=== PATIENT | male | born 1960 | race Caucasian/White ===

== ENCOUNTER → 2016-05-18 | Outpatient (CLI) | payer OTHER ==
[2016-05-18 12:54] VITALS: BP 149/96; PULSE 80; RESP 16; TEMP 98.1
--- NOTE | 2016-05-18 13:16 | P.PN ---
Subjective This is follow-up visit for this patient with a history of severe and chronic neck pain and low back pain secondary to cervical degenerative disc disease, lumbar degenerative disc disease ,lumbar spondylosis with facet arthropathy, we have done interventional pain management injection, cervical epidural steroid injections, and he reported that helped his neck pain significantly, and the last injection done was more than a year ago, and also we did radiofrequency ablation of the medial branch lumbar area, and this helped his low back pain for more than 2 years, currently he started to complain of severe neck pain and low back pain, he denies any motor or sensory deficits he denies change in the bowel movement or urination, and he had no fever or night sweats, and is currently on pain medications 1- Percocet 10/325 every 6 hours 2- Flexeril 10 mg when necessary 3- Neurontin 800 mg 3 times a day Patient denies any side effects of the medication, denies excessive drowsiness or sleepiness, denies suicidal ideation, and reports that the current pain medication is NOT helping To control the pain and improve activity of daily living Physical Examinations : 1-Constitutiona : Cooperative , not in acute distress . 2-HEENT : nech ; supple , no Lymphadenopathy , no Thyromegaly , normal thyroid size . eyes : no ptosis , no icterus, no photophobia . ENT : normal of hearing , normal oropharynx , no Thrush . 3- Respiratory : Chest clear to auscultations Bilaterally , no wheezing , no Rhonchi . 4- Cardiovascular : regular rate and rhythem , S1 , S2 , no S3 , no S4. 5- Gastrointestinal : abdomen soft no tenderness , bowel sounds positive all four quadrents , no organomegally . 6- Genitourinary : Defferred . 7- neurologic : Cranial nerve II to XII intact , no focal neurological deffecit . 8-psychatric : alert , oriented X 3 , appropriate affect , intact judgment and insight . 9-Lymphatic : no Lymphadenopathy . 10- musculoskeltal : exams of the cervical spine = motor strength normal bilateral upper extremities Multiple trigger point identified in the cervical paravertebral muscles . And trigger point identified in the left side shoulder blade area exams of the Lumber spine = motor strength lower extremities ,thigh and legs .5/5 deep tendon reflexes : normal Knee Jerk , normal ankle Jerk . lumber facet Loading Test positive strait leg raising test positive at 30 degree , RT ,LT , Fabere test positive RT and positive LT . Range of motion: Range of motion in flexion of the lumbar spine 30 degrees Range of motion range of motion of extension of the lumbar spine 10 degrees Assessment and plan = Chronic neck pain secondary to cervical degenerative disc disease, and myofascial pain syndrome and cervical area, patient could benefit from Cervical epidural steroid injections, and trigger point injections - Chronic low back pain secondary to lumbar degenerative disc disease , lumbar spondylosis with facet arthropathy without myelopathy , Patient had radiofrequency ablation of the medial branch lumbar area done more than 2 years ago on the other with resultant, in the future we can Repeat the radiofrequency ablation of the medial branch lumbar area, after we finished the treatment of the nec -medication management = patient getting this prescription refill from his primary care Objective - Vital Signs Vital signs: Vital Signs Temp 98.1 F 05/18/16 12:40 Pulse 80 05/18/16 12:40 Resp 16 05/18/16 12:40 BP 149/96 05/18/16 12:40 Pulse Ox Intake & Output 05/17/16 05/18/16 05/18/16 18:59 06:59 18:59 Weight 107.955 kg
== END | disposition home or self-care (01) ==
LOC: PNWHC3 12:28
PROVIDERS: ATTEND Specialist
DX: M50.30 Other cervical disc degeneration, unspecified cervical region (principal); M79.1 Myalgia; M51.36 Other intervertebral disc degeneration, lumbar region; M47.816 Spondylosis without myelopathy or radiculopathy, lumbar region; M46.96 Unspecified inflammatory spondylopathy, lumbar region; Z79.899 Other long term (current) drug therapy
CPT/HCPCS: 99211

== ENCOUNTER 2016-06-23 06:24 | Day surgery (SDC) | payer OTHER ==
[2016-06-19 16:17] VITALS: BMI 33.5
[~2016-06-23 06:24] MED LIST: LACTATED RINGERS 1,000 ML IV SCH
[2016-06-23] MEDS ORDERED: LIDOCAINE 1% 20 ML VIAL (10MG/ML) FOR IV START INTRADERMA ONE (06:45)
[2016-06-23 06:55] VITALS: RESP 16; TEMP 97.4
[2016-06-23] MEDS ORDERED: MIDAZOLAM 2 MG/2 ML VIAL ONE (07:14)
[2016-06-23] MEDS ORDERED: fentaNYL (PF) 50 MCG/ML 2 ML AMP ONE (07:14)
[2016-06-23] MEDS ORDERED: IOHEXOL 180 MG/ML 1 ML ML ONE (07:14)
[2016-06-23] MEDS ORDERED: BUPIVACAINE (PF) 0.5% 30 ML VIAL ONE (07:14)
--- NOTE | 2016-06-23 07:37 | P.PCN ---
Date of Procedure: 06/23/16 Procedure(s) Performed: . PROCEDURE 1. Cervical epidural steroid injection under fluoroscopic guidance, C6-7 2. Cervical epidurogram. 3. Trigger point injections left-sided cervical paravertebral muscles ,total of 4 trigger points injected PREOPERATIVE DIAGNOSIS: 1- Cervical Degenerative Disc Diseases 2- myofascial pain syndrome cervical paravertebral area POSTOPERATIVE DIAGNOSIS: : Same as preoperative diagnosis. ANESTHESIA: Local anesthesia with 1% lidocaine and IV sedation with Versed 2 mg and Fentanyl 100 mcg. EBL 0 PROCEDURE INDICATION: The patient with neck pain , unresponsive to conservative treatment, and he consented for procedure. Exams showed patient had multiple trigger points in the left-sided cervical paravertebral muscles for this reason , we will do cervical epidural steroid injection and trigger point injections PROCEDURE DESCRIPTION / TECHNIQUE: The patient was seen and identified in the preoperative area. Risks, benefits, complications, including but not limited to infections ,bleeding , allergic reactions to the medications ,and not complete pain releife, and alternatives were discussed with the patient, the patient agreed to proceed with the procedure and signed the consent. Patient was taken to the OR and time out was completed. The patient was placed in the prone position on the procedure table. A pillow was placed under the patients chest to increase the cervical interlaminar space. The cervical area was prepped and draped in the usual sterile fashion. Vital signs were closely monitored during the procedure. Conscious sedation was used during the procedure to decrease patients anxiety. Using anterior-posterior fluoroscopy, the C7-T1 interlaminar space was identified and the skin over this site was marked and then infiltrated with 1% lidocaine subcutaneously. Subsequently, a 20-gauge 3-1/2-inch Tuohy epidural needle was inserted and advanced toward the epidural space by means of the `` hanging-drop technique and guided by AP and lateral fluoroscopy. The correct needle position in the epidural space was verified with the injection of 2 mL of the water soluble contrast dye Isovue-180 and observing an excellent epidurogram with the epidural spread of the dye, after negative aspiration for blood and CSF and in the absence of paresthesias. Again after negative aspiration, mixture containing 20 mg Dexamethasone and 2 ml of preservative- free normal saline injected and a washout of epidurogram was seen. Needle was withdrawn intact , Daisy trigger point injections normal sterile technique, each of the trigger point that is identified in the preop holding area, each one of them injected with Marcaine 0.5% 2 mL, injected at each trigger point using 25-gauge needle, injection after negative aspiration under was no paresthesia during the injection, patient tolerated procedure well without any complications. Complications= none. Disposition= patient was placed in supine position and transferred to the recovery room area in stable condition and there was no evidence of upper or lower extremity motor or sensory deficit after the procedure patient was discharged from recovery room after discharge criteria met and home discharge instructions was given by the staff and patient will follow with the pain clinic in 2-4 weeks
[2016-06-23] MEDS ORDERED: IV FLUID CONTINUATION 1,000 ML IV ONE ×2 (07:39)
--- NOTE | 2016-06-23 08:09 | FL ---
EXAMINATION TYPE: FL guided pain mgmt statistic DATE OF EXAM: 06/23/2016 7:35 AM FLUOROSCOPY Fluoroscopy time of 5 seconds was used during cervical epidural injection. 1 image/s document/s the procedure.
[2016-06-23 08:10] VITALS: BP 158/96; PULSE 71
== END 2016-06-23 08:13 | disposition home or self-care (01) ==
LOC: ORPAIN 06:24
PROVIDERS: ATTEND Specialist
DX: M50.30 Other cervical disc degeneration, unspecified cervical region (principal); M79.1 Myalgia
CPT/HCPCS: 20553; 62321; J2250; Q9965; J3010

== ENCOUNTER 2016-07-29 06:58 | Day surgery (SDC) | payer OTHER ==
[2016-07-27 16:16] VITALS: BMI 33.6
[2016-07-29 07:58] VITALS: RESP 18; TEMP 97.7
[2016-07-29] MEDS ORDERED: LACTATED RINGERS 1,000 ML IV SCH (08:00)
[2016-07-29] MEDS ORDERED: LIDOCAINE 1% 20 ML VIAL (10MG/ML) FOR IV START INTRADERMA ONE (08:04)
[2016-07-29] MEDS ORDERED: MIDAZOLAM 2 MG/2 ML VIAL ONE (08:23)
[2016-07-29] MEDS ORDERED: TRIAMCINOLONE ACETONIDE 40 MG/ML 1 ML VIAL ONE (08:23)
[2016-07-29] MEDS ORDERED: fentaNYL (PF) 50 MCG/ML 2 ML AMP ONE (08:23)
[2016-07-29] MEDS ORDERED: IOHEXOL 180 MG/ML 1 ML ML ONE (08:23)
[2016-07-29] MEDS ORDERED: BUPIVACAINE (PF) 0.25% 30 ML VIAL ONE (08:23)
--- NOTE | 2016-07-29 08:39 | P.PCN ---
Date of Procedure: 07/29/16 Preoperative Diagnosis: Cervical neuroforaminal stenosis Cervical disc degeneration Postoperative Diagnosis: Same as above Procedure(s) Performed: Cervical epidural steroid injection under fluoroscopic guidance Trigger point injection Anesthesia: other (Moderate sedation with Versed and fentanyl) Surgeon: Juan Conn Pathology: none sent Condition: stable Disposition: PACU Description of Procedure: The patient was seen in preop holding area consent was obtained then he was brought into the procedure was placed in prone position. Skin was prepped with Betadine 3 and draped in a sterile manner. Lidocaine 1% was used to numb the skin up at the target point that was at the C7-T1 level in the left paramedian approach. I used 20-gauge 3-1/2 inch Touhy epidural needle with loss-of- resistance to air. The needle tip contacted the T1 lamina then it walked off the bone and into the epidural space between C7 and T1. There was positive loss -of-resistance to air negative aspiration for any CSF or blood and negative paresthesia. Then 40 mg of kenalog +4 MLS of preservative free normal saline were injected in the epidural space.
[2016-07-29] MEDS ORDERED: IV FLUID CONTINUATION 500 ML IV ONE (09:00)
[2016-07-29 09:12] VITALS: BP 120/74; PULSE 74
--- NOTE | 2016-07-29 09:46 | FL ---
Fluoroscopy INDICATION: Pain FINDINGS: Fluoroscopy time: 2 seconds. Images obtained: 1. IMPRESSIONS: 1. Documentation of fluoroscopy.
== END 2016-07-29 09:25 | disposition home or self-care (01) ==
LOC: ORPAIN 06:58
PROVIDERS: ATTEND Anesthesiology
DX: M48.02 Spinal stenosis, cervical region (principal); M50.30 Other cervical disc degeneration, unspecified cervical region; Z79.899 Other long term (current) drug therapy
CPT/HCPCS: 20553; 62321; 99152; J2250; J3301; Q9965; J3010

== ENCOUNTER → 2016-09-07 | Outpatient (CLI) | payer OTHER ==
[2016-09-07 13:20] VITALS: BP 140/90; PULSE 83; RESP 16; TEMP 97.6
--- NOTE | 2016-09-07 13:30 | P.PN ---
Progress Note - Text Patient returns for followup for chronic neck and back pain with radiation to right arm and without radiation to legs. Patient recently underwent HUGO + TPI x 2, which provided some relief for 3-4 weeks' interval. Patient continues on Percocet/Neurontin medications for pain from PCP with good relief. Patient denies adverse drug effects from medications. Today, pt denies new-onset weakness, bowel/bladder incontinence, or any other signs or symptoms of cauda equina syndrome. There are no signs of acute intoxication, and no indications of medication diversion or overuse. In addition to above, 13-point review of systems is also negative for chest pain , shortness of breath, changes in vision, changes in hearing, new onset weakness , abdominal pain, diarrhea, extreme fatigue, malaise, fever, skin changes, homicidal or suicidal ideation, or bowel or bladder incontinence. Vital Signs: Reviewed in EMR Gen: WDWN, AAOx3, NAD HEENT: NCAT, EOMI, hearing grossly normal Pulm: resp unlabored Abd: soft, NT, ND Neck: supple, trachea midline ROM in flexion lumbar spine: reduced ROM in extension lumbar spine: reduced Lumbar paravertebral tenderness: + Facet loading: + bilateral, R > L SI joint tenderness: + R > L Miguelito's test: + bilateral Straight leg raise: neg Neuro: CN II-XII grossly intact, muscle strength lower extremities PRESERVED Imaging: Reviewed in EMR Assessment: 1. lumbar spondylosis without myelopathy 2. cervical radiculopathy 3. chronic pain syndrome Plan: 1. Explanation: Opioid and psychological risk scores were reviewed. Diagnoses , prognoses, and multiple treatment options including but not limited to physical therapy, interventional therapies, adjuvant medical therapies, narcotic medication therapies, and surgery were discussed with the patient and all questions were answered to the patient's satisfaction. 2. Opioid agreement: no opioids prescribed today 3. Counseling: The patient was counseled extensively on BODY MASS INDEX, EXERCISE. Specifically, the patient was instructed regarding the importance of obesity, and exercise in the context of both chronic pain and overall health. 4. Procedures: repeat right vs. lumbar RFA 5. Consultations: None 6. Investigations: None 7. Medications: none prescribed 8. Disposition: f/u for procedure as scheduled PQRS measures: 1-Patient's medications are documented in the chart. 2-Tobacco use is positive, counseling given 3-Patient has not had a pneumococcal vaccine. 4-Advanced care planning discussed, patient unable to give. 5-Opioid contract NOT signed with the patient. 6-Pain positive, follow-up visit or procedure scheduled 7-Patient's blood pressure measured and documented, and patient will follow up with the primary care due to hypertension. 8-Patient's weight was measured, and body mass index ABOVE the normal limits, and counseling was done. Patient instructed to follow up with PCP. 9-Patient WAS NOT identified as an unhealthy alcohol user.
== END ==
LOC: PNWHC3 12:51
PROVIDERS: ATTEND Anesthesiology
DX: M47.26 Other spondylosis with radiculopathy, lumbar region (principal); M54.12 Radiculopathy, cervical region; G89.4 Chronic pain syndrome
CPT/HCPCS: 99211

== ENCOUNTER → 2016-09-22 | Outpatient (CLI) | payer OTHER ==
--- NOTE | 2016-09-23 08:01 | MR ---
EXAMINATION TYPE: MR lumbar spine wo/w con DATE OF EXAM: 09/22/2016 COMPARISON: Prior MRI lumbar spine February 17, 2013. HISTORY: Spondylosis and low back pain per order. Pain for 10 years per patient. TECHNIQUE: Multiplanar, multisequence images of the lumbar spine is performed without and with IV contrast, util izing 20 mL intravenous MultiHance FINDINGS: Sagittal images of the lumbar spine show vertebral body heights and alignment to appear sat isfactory. Multilevel disc desiccation is redemonstrated. There is persistent mild disc space narrow ing L5-S1 level. Small posterior disc herniations are redemonstrated at L4-L5 and L5-S1 levels on sag ittal images. The conus medullaris remains normal in position and signal ending at mid L1 level. Ther e is some prominence of the epidural fat in the lower lumbar spine redemonstrated beginning at L3-L4 disc space level extending inferiorly. The bone marrow signal intensity is overall heterogeneous with some endplate changes in the mid to lower lumbar spine in the anterior thoracolumbar spine redemonst rated. No suspicious postcontrast enhancement is seen. Mild to moderate multilevel anterior spurring is present. Axial images at the T12-L1 and L1-L2 levels show mild facet degenerative changes bilaterally but spin al canal is preserved and bilateral neural foramina are patent. Axial images at L2-L3 level show mild/moderate facet degenerative changes bilaterally. Spinal canal i s preserved and bilateral neural foramina are patent. Axial images at the L3-L4 level show mild facet degenerative changes bilaterally. There is mild broad disc bulge identified and this is causing mild to moderate bilateral anterior inferior neural forami nal narrowing. No significant change from prior study is seen. Axial images at the L4-L5 level show moderate facet degenerative changes bilaterally. There is broad disc bulge with central disc protrusion component. There is increased spinal canal effacement or sten osis seen at this level on axial image 7. Although this is majority on basis of increased surrounding epidural fat. Axial images at the L5-S1 level show moderate facet degenerative changes. There is broad disc bulge w ith central disc protrusion component. There is mild to moderate bilateral neural foraminal narrowing at this level identified. No suspicious retroperitoneal pathology is seen. No worrisome enhancement is noted. IMPRESSION: Multilevel degenerative changes in the lumbar spine as detailed above with findings most prominent in lower lumbar levels noted. Most prominent spinal canal effacement or stenosis is L4-L5 l evel mostly on basis of prominent epidural fat or epidural lipomatosis versus more prominent degenera tive changes at this level. Overall not much progression from 2013 MRI.
== END | disposition home or self-care (01) ==
LOC: RADMRIMAIN 17:08
PROVIDERS: ATTEND Anesthesiology
DX: M47.16 Other spondylosis with myelopathy, lumbar region (principal); M53.86 Other specified dorsopathies, lumbar region
CPT/HCPCS: 72158; A9577

== ENCOUNTER 2016-10-21 07:02 | Day surgery (SDC) | payer OTHER ==
[2016-10-14 15:52] VITALS: BMI 32.8
[2016-10-21 07:33] VITALS: RESP 18; TEMP 97.6
[2016-10-21] MEDS: LACTATED RINGERS 1,000 ML IV SCH ×2 (07:42→08:27)
[2016-10-21] MEDS ORDERED: LIDOCAINE 1% 20 ML VIAL (10MG/ML) FOR IV START SQ ONE (07:43)
[2016-10-21] MEDS ORDERED: IV FLUID CONTINUATION 1,000 ML IV ONE (09:12)
[2016-10-21 09:17] VITALS: BP 122/86; PULSE 77
--- NOTE | 2016-10-21 09:28 | FL ---
EXAMINATION TYPE: FL guided pain mgmt statistic DATE OF EXAM: 10/21/2016 CLINICAL HISTORY: Low back pain. TECHNIQUE: Fluoroscopy. COMPARISON: None. FINDINGS: Fluoroscopic guidance was provided during pain relief procedure performed by Dr. Dempsey . A total of 9 seconds of fluoroscopic time was utilized during the procedure and 3 spot images are acq uired. Images acquired shows needle localization at several levels in the lower lumbar spine. IMPRESSION: As Above.
--- NOTE | 2016-10-27 11:46 | P.PCN ---
Date of Procedure: 10/21/16 Preoperative Diagnosis: Postoperative Diagnosis: Procedure(s) Performed: Implants: Surgeon: Bari Dempsey Pathology: none sent Condition: stable Disposition: PACU Indications for Procedure: Operative Findings: Description of Procedure: PREOPERATIVE DIAGNOSIS: Lumbar spondylosis without myelopathy and facet arthropathy POSTOPERATIVE DIAGNOSIS: Lumbar spondylosis without myelopathy and facet arthropathy PROCEDURES: Right Radiofrequency thermocoagulation, L2-L3, L3-L4, L4-L5, and L5- S1 medial branch, with fluoroscopic guidance. ANESTHESIA: 1% lidocaine plain; Conscious sedation with versed/fentanyl EBL: Minimal PROCEDURE INDICATION: The patient with low back pain secondary to lumbar arthropathy who had more than 50% relief of pain with previous diagnostic lumbar medial branch block with bupivacaine. Patient presents for right lumbar RFA today; no use of blood thinners. PROCEDURE DESCRIPTION / TECHNIQUE: The patient was seen and identified in the preoperative area. Risks, benefits, complications, and alternatives were discussed with the patient (including but not limited to incomplete pain relief , bleeding, infection, nerve damage, and allergies to medications), the patient agreed to proceed with the procedure and signed the consent after all questions were answered. Patient was taken to the OR and time out was completed to verify proper patient , position, laterality of pain, and allergies. Pt was placed in the prone position. IV was started. Vital signs remained stable throughout the procedure. A pillow was placed under the patients chest to decrease lordosis. The lumbosacral area was prepped and draped in the usual sterile fashion. Vital signs were closely monitored during the procedure. Conscious sedation was used during the procedure to decrease patients anxiety. Using AP and then oblique fluoroscopy, the eye of the Carlos dog corresponding to the connection between the superior and transverse articular processes of right L3, L4, L5 and top of the sacrum were identified, marked, and localized with 1% lidocaine. Subsequently, a 18 gauge, 100-mm radiofrequency cannula with a 10-mm active tip was advanced guided by fluoroscopy to each of the eyes of the Carlos dog at right L2, L3, L4, and L5 medial branches. Each site then underwent sensory testing at 50 Hz and 0 to 1 volt and motor testing at 2 Hz and 0 to 3 volt with local stimulation, but no radicular symptoms down the legs. Thereafter the right L2, L3, L4, and L5 medial branch sites underwent radiofrequency thermocoagulation at 80 degrees Celsius for 90 seconds after injecting 0.5 ml of PF lidocaine 1%. After thermocoagulation, 1 ml of the block solution containing Kenalog 40 mg and 3 mL of preservative-free normal saline was injected at the right L2, L3, L4, and L5 medial branch levels after negative aspiration of CSF and blood and with no paresthesias. Cannulas were retracted while injecting lidocaine 1% until the needles were removed. At the end of the procedure, the skin was cleansed and bandages were applied. COMPLICATIONS: No acute complications. DISPOSITION / PLANS: The patient was placed in a supine position and transferred to the recovery area in a stable condition for observation and was discharged from the recovery room after meeting discharge criteria. Home discharge instructions given to the patient by the staff. The patient was reexamined prior to discharge. The patient will schedule a left lumbar RFA.
== END 2016-10-21 09:37 | disposition home or self-care (01) ==
LOC: ORPAIN 07:02
PROVIDERS: ATTEND Anesthesiology
DX: M47.816 Spondylosis without myelopathy or radiculopathy, lumbar region (principal); M46.96 Unspecified inflammatory spondylopathy, lumbar region; Z79.891 Long term (current) use of opiate analgesic; Z79.899 Other long term (current) drug therapy
CPT/HCPCS: 64635; 64636 ×3; 99152; 99153; J2250; J3301; J3010

== ENCOUNTER 2016-11-19 06:52 | Day surgery (SDC) | payer OTHER ==
[2016-11-19 07:45] VITALS: RESP 16; TEMP 98.1
[2016-11-19] MEDS ORDERED: LIDOCAINE 1% 20 ML VIAL (10MG/ML) FOR IV START INTRADERMA ONE (07:50)
--- NOTE | 2016-11-19 08:47 | P.PCN ---
Date of Procedure: 11/19/16 Preoperative Diagnosis: Lumbar spondylosis without myelopathy Postoperative Diagnosis: Same as above Procedure(s) Performed: Left lumbar medial branch radiofrequency ablation under fluoroscopic guidance for levels L2-L3, L3 4, L4-L5, and L5-S1 Implants: Anesthesia: other (Conscious sedation with IV fentanyl and Versed) Surgeon: Juan Conn Pathology: none sent Condition: stable Disposition: PACU Indications for Procedure: Operative Findings: Description of Procedure: The patient was seen in the preop holding area consent was obtained then he was brought into the procedure room and placed in prone position. Skin was prepped with ChloraPrep and draped in a sterile manner. lidocaine 1% percent was used to numb the skin up at the target points that are chosen as follows: The superior medial aspect of the sacral ala on the left side of the spine was identified on the AP view of fluoroscopy this point corresponds to the dorsal ramus of L5 at the L5-S1 level. The target points for the L2,L3, andL4 and L5 medial branches were at the connection between the transverse process and the superior articular process of the vertebra number L3, L4, and L5 on the left oblique view of fluoroscopy. I used 18-gauge, 150 mm in length Venom radiofrequency ablation needles for this procedure. I placed the active tips as parallel as possible to the medial branches tracks by going in a superior medial direction. AP, oblique, and lateral views of fluoroscopy were obtained to verify needle tips position. Motor stimulation showed only local twitches of these needles with no radiation of twitching to the left lower extremity. I then prepared solution of Marcaine 0.5% 3 mils +1 mL of Kenalog 40 mg 1 mL of the solution was injected in each needle before starting radio frequency ablation at 80 for 90 seconds. Patient tolerated procedure well.
[2016-11-19 09:05] VITALS: BP 119/64; PULSE 73
--- NOTE | 2016-11-19 09:09 | FL ---
EXAMINATION TYPE: FL guided pain mgmt statistic DATE OF EXAM: 11/19/2016 FLUOROSCOPY Fluoroscopy time of 27 seconds was used during left lumbar radiofrequency ablation. 2 image/s docume nt/s the procedure.
== END 2016-11-19 09:15 | disposition home or self-care (01) ==
LOC: ORPAIN 06:52
PROVIDERS: ATTEND Anesthesiology
DX: M47.816 Spondylosis without myelopathy or radiculopathy, lumbar region (principal)
CPT/HCPCS: 99152; 99153; 64636 ×3; 64635; J2250; J3301; J3010

== ENCOUNTER → 2017-02-08 | Outpatient (CLI) | payer OTHER ==
[2017-02-08 13:34] VITALS: BP 138/91; PULSE 88; RESP 16; TEMP 98.2
--- NOTE | 2017-02-08 14:09 | P.PN ---
Subjective Progress Note Date: 02/08/17 this is a follow-up visit for this 56 years old male with a history of neck pain and low back pain he drake with cervical degenerative disc disease and myofascial pain syndrome cervical area, done cervical epidural steroid injection and trigger point injection cervical area, and also patient diagnosed with lumbar spondylosis status post radiofrequency ablation of the medial branch lumbar area, one in October 2016 and November 2016, his pain improved significantly after the interventional pain management, please complaining of some neck pain and low back pain localized around the lower cervical and left shoulder pain area, in the low back area he denies any numbness or tingling sensation he denies any change in the bowel movement or urination and he denies any fever or night sweats Objective - Vital Signs Vital signs: Vital Signs Temp 98.2 F 02/08/17 13:25 Pulse 88 02/08/17 13:25 Resp 16 02/08/17 13:25 BP 138/91 02/08/17 13:25 Pulse Ox Intake & Output 02/07/17 02/08/17 02/08/17 18:59 06:59 18:59 Weight 104.326 kg - Exam Physical Examinations : 1-Constitutiona : Cooperative , not in acute distress . 2-HEENT : nech ; supple , no Lymphadenopathy , normal thyroid size . eyes : no ptosis , no icterus, no photophobia . ENT : normal of hearing , normal oropharynx , no Thrush . 3- Respiratory : Chest clear to auscultations Bilaterally , no wheezing , no Rhonchi . 4- Cardiovascular : regular rate and rhythem , S1 , S2 , no S3 , no S4. 5- Gastrointestinal : abdomen soft no tenderness , bowel sounds positive all four quadrents , no organomegally . 6- Genitourinary : Defferred . 7- neurologic : Cranial nerve II to XII intact , no focal neurological deffecit . 8-psychatric : alert , oriented X 3 , appropriate affect , intact judgment and insight . 9-Lymphatic : no Lymphadenopathy . 10- musculoskeltal : cervical spine = motor stregnth in the deltoid and biceps, motor stregnth biceps and the wrist extensors (C6) . motor stregnth in the triceps muscle . deep tendon reflexes normal at the biceps , l normal at Brachioradialis normal at the triceps total trigger point identified in the left side and cervical paravertebral muscles. , Lumber spine = normal moter stegnth lower extremities ,thigh and legs .5/5 deep tendon reflexes : normal Knee Jerk , normal ankle Jerk . negative lumber facet Loading Test strait leg raising test negative bilaterally Fabere test negative bilaterally trigger points identified in the lower lumbar paravertebral muscles Assessment and Plan Assessment: Assessment and plan= chronic neck and low back pain secondary to cervical degenerative disc disease , lumbar spondylosis with lumbar facet arthropathy , myofasial pain syndrome lumbar and cervical area. , currently most of the pain is coming from the myofascial pain syndrome, she'll benefit from trigger point injections cervical paravertebral muscles/suprascapular/lower lumbar area ,procedure risk and benefits and alternatives were discussed with the patient she agreed to proceed ,patient will continue to use his pain medication ,Neurontin 800 mg 3 times a day , Percocet 10/320 far is getting prescription refills from his primary care , he denies any side effect of the medication he denies any excessive drowsiness or sleepiness , Time with Patient: Less than 30
== END ==
LOC: PNWHC3 12:24
PROVIDERS: ATTEND Specialist
DX: M47.816 Spondylosis without myelopathy or radiculopathy, lumbar region (principal); M46.86 Other specified inflammatory spondylopathies, lumbar region; M79.1 Myalgia; M50.30 Other cervical disc degeneration, unspecified cervical region; Z79.899 Other long term (current) drug therapy
CPT/HCPCS: 99211

== ENCOUNTER 2017-03-22 08:58 | Day surgery (SDC) | payer OTHER ==
[2017-03-18 15:58] VITALS: BMI 32.1
[2017-03-22 10:14] VITALS: TEMP 97.5
[2017-03-22] MEDS ORDERED: LIDOCAINE 1% 20 ML VIAL (10MG/ML) FOR IV START SQ ONE (10:20)
--- NOTE | 2017-03-22 11:06 | P.PCN ---
Date of Procedure: 03/22/17 Preoperative Diagnosis: Myofascial pain Postoperative Diagnosis: same as above Procedure(s) Performed: Trigger point injection in the right supraspinous muscle and right lumbar paravertebral musculature Anesthesia: MAC Surgeon: Juan Conn Pathology: none sent Condition: stable Disposition: PACU Description of Procedure: This was seen in preop holding area consent was obtained then he was brought into the procedure room and placed in prone position. The trigger points were identified and skin was marked at these points which were only two, one in the right shoulder area another one in the right lower back area. I used 25-gauge needle to go through the skin and into the right supraspinatus muscle and injected 2 MLS of a solution made up of 3 MLS Marcaine 0.25% +40 mg of Kenalog. Then I injected the right lower back area and the lumbar musculature using 2 mls of the same solution. Patient tolerated procedure well and was transferred in stable condition to PACU.
[2017-03-22] MEDS ORDERED: IV FLUID CONTINUATION 1,000 ML IV ONE (11:14)
[2017-03-22 11:17] VITALS: RESP 18
[2017-03-22 11:30] VITALS: BP 115/78; PULSE 71
== END 2017-03-22 11:47 | disposition home or self-care (01) ==
LOC: ORPAIN 08:58
PROVIDERS: ATTEND Anesthesiology
DX: M79.1 Myalgia (principal)
CPT/HCPCS: 20552; J3301; J3010; 20553

== ENCOUNTER 2018-03-23 10:18 | Observation (INO) | payer OTHER ==
[2018-03-23] MEDS ORDERED: NITROGLYCERIN OINT 1 INCH/GM PACKET TOPICAL STA (10:34)
[2018-03-23] MEDS ORDERED: ASPIRIN 81 MG PO STA (10:34)
--- NOTE | 2018-03-23 10:38 | ED ---
General Adult HPI - General Chief complaint: Chest Pain Stated complaint: Chest pain Time Seen by Provider: 03/23/18 10:20 Source: patient, EMS, RN notes reviewed Mode of arrival: EMS Limitations: no limitations - History of Present Illness Initial comments: Patient is a pleasant 57-year-old male presenting to the emergency Department with complaints of chest discomfort. Onset of symptoms was around 9 AM. Symptoms are near resolved now following aspirin and nitroglycerin by EMS. As comfort was severe. Chest discomfort feels like pressure with radiation to the left shoulder. Patient did have some associated dyspnea and nausea. No diaphoresis. Patient did feel anxious. No history of similar symptoms previously. Patient does have recent history of right knee skin infection that he has been on 2) chest for. Patient started Keflex and Bactrim. Patient is doing wound care for this. - Related Data Home Medications Medication Instructions Recorded Confirmed oxyCODONE-APAP 10-325MG [Percocet 1 tab PO Q6HR PRN 08/24/13 03/23/18 10-325 mg] Aspirin EC [Ecotrin Low Dose] 81 mg PO DAILY 03/23/18 03/23/18 Atorvastatin [Lipitor] 40 mg PO HS 03/23/18 03/23/18 Metoprolol Succinate [Toprol Xl] 50 mg PO DAILY 03/23/18 03/23/18 Pantoprazole Sodium [Protonix] 40 mg PO DAILY 03/23/18 03/23/18 Sulfamethox-Tmp 800-160Mg [Bactrim 1 tab PO Q12HR 03/23/18 03/23/18 DS 800-160 mg] Allergies Allergy/AdvReac Type Severity Reaction Status Date / Time morphine AdvReac Rash/Hives Verified 03/23/18 10:39 Review of Systems ROS Statement: Those systems with pertinent positive or pertinent negative responses have been documented in the HPI. ROS Other: All systems not noted in ROS Statement are negative. Constitutional: Denies: fever Eyes: Denies: eye pain ENT: Denies: ear pain Respiratory: Reports: as per HPI Cardiovascular: Reports: as per HPI, chest pain Endocrine: Denies: fatigue Gastrointestinal: Reports: nausea. Denies: abdominal pain Genitourinary: Denies: dysuria Musculoskeletal: Denies: back pain Skin: Denies: rash Neurological: Denies: weakness Past Medical History Past Medical History: Musculoskeletal Disorder Additional Past Medical History / Comment(s): back pain History of Any Multi-Drug Resistant Organisms: None Reported Past Surgical History: No Surgical Hx Reported Additional Past Surgical History / Comment(s): pain clinic procedures. cyst lanced on R shoulder - 2016 Past Anesthesia/Blood Transfusion Reactions: No Reported Reaction Past Psychological History: No Psychological Hx Reported Smoking Status: Current every day smoker - Past Family History Mother Family Medical History: No Reported History General Exam Limitations: no limitations General appearance: alert, in no apparent distress Head exam: Present: atraumatic Eye exam: Present: normal appearance, PERRL Neck exam: Present: normal inspection Respiratory exam: Present: normal lung sounds bilaterally. Absent: chest wall tenderness Cardiovascular Exam: Present: regular rate, normal rhythm Expanded Peripheral pulses: 2+: Posterior Tibialis (R), Posterior Tibialis (L) GI/Abdominal exam: Present: soft. Absent: tenderness Extremities exam: Present: other (Right anterior knee wound). Absent: pedal edema, calf tenderness Neurological exam: Present: alert Psychiatric exam: Present: normal affect, normal mood Skin exam: Present: other (Right anterior knee with 1 cm ulceration consistent with recent abscess. Trace amount of purulent discharge.) Course Vital Signs 03/23/18 10:26 Temperature 98.4 F Pulse Rate 61 Respiratory 17 Rate Blood Pressure 149/86 O2 Sat by Pulse 100 Oximetry EKG Findings - EKG Comments: EKG Findings:: Normal sinus rhythm at 61. RI 186. QRS 98. QT 416. QTC 418. Normal axis. Normal QRS. No acute ST change. Medical Decision Making - Medical Decision Making Patient reevaluated and resting comfortably in bed. Patient symptom-free at this time. Patient is updated on results and plan. Dr. Dale has been paged for admission for - Lab Data Result diagrams: 03/23/18 10:54 03/23/18 10:54 Lab Results 03/23/18 03/23/18 03/23/18 Range/Units 10:54 10:54 10:54 WBC 6.5 (3.8-10.6) k/uL RBC 4.56 (4.30-5.90) m/uL Hgb 13.3 (13.0-17.5) gm/dL Hct 39.3 (39.0-53.0) % MCV 86.3 (80.0-100.0) fL MCH 29.1 (25.0-35.0) pg MCHC 33.8 (31.0-37.0) g/dL RDW 13.2 (11.5-15.5) % Plt Count 260 (150-450) k/uL Neutrophils % 62 % Lymphocytes % 26 % Monocytes % 6 % Eosinophils % 4 % Basophils % 1 % Neutrophils # 4.0 (1.3-7.7) k/uL Lymphocytes # 1.7 (1.0-4.8) k/uL Monocytes # 0.4 (0-1.0) k/uL Eosinophils # 0.3 (0-0.7) k/uL Basophils # 0.1 (0-0.2) k/uL PT (9.0-12.0) sec INR (<1.2) APTT (22.0-30.0) sec D-Dimer (<0.60) mg/L FEU Sodium 140 (137-145) mmol/L Potassium 4.4 (3.5-5.1) mmol/L Chloride 110 H (98-107) mmol/L Carbon Dioxide 22 (22-30) mmol/L Anion Gap 8 mmol/L BUN 8 L (9-20) mg/dL Creatinine 0.86 (0.66-1.25) mg/dL Est GFR (CKD-EPI)AfAm >90 (>60 ml/min/1.73 sqM) Est GFR (CKD-EPI)NonAf >90 (>60 ml/min/1.73 sqM) Glucose 96 (74-99) mg/dL Calcium 9.0 (8.4-10.2) mg/dL Magnesium 1.7 (1.6-2.3) mg/dL Total Bilirubin 0.5 (0.2-1.3) mg/dL AST 21 (17-59) U/L ALT 19 L (21-72) U/L Alkaline Phosphatase 94 (38-126) U/L Total Creatine Kinase 89 (55-170) U/L CK-MB (CK-2) 0.6 (0.0-2.4) ng/mL CK-MB (CK-2) Rel Index 0.7 Troponin I <0.012 (0.000-0.034) ng/mL Total Protein 7.2 (6.3-8.2) g/dL Albumin 3.9 (3.5-5.0) g/dL 03/23/18 Range/Units 10:54 WBC (3.8-10.6) k/uL RBC (4.30-5.90) m/uL Hgb (13.0-17.5) gm/dL Hct (39.0-53.0) % MCV (80.0-100.0) fL MCH (25.0-35.0) pg MCHC (31.0-37.0) g/dL RDW (11.5-15.5) % Plt Count (150-450) k/uL Neutrophils % % Lymphocytes % % Monocytes % % Eosinophils % % Basophils % % Neutrophils # (1.3-7.7) k/uL Lymphocytes # (1.0-4.8) k/uL Monocytes # (0-1.0) k/uL Eosinophils # (0-0.7) k/uL Basophils # (0-0.2) k/uL PT 10.3 (9.0-12.0) sec INR 1.0 (<1.2) APTT 26.0 (22.0-30.0) sec D-Dimer 0.33 (<0.60) mg/L FEU Sodium (137-145) mmol/L Potassium (3.5-5.1) mmol/L Chloride (98-107) mmol/L Carbon Dioxide (22-30) mmol/L Anion Gap mmol/L BUN (9-20) mg/dL Creatinine (0.66-1.25) mg/dL Est GFR (CKD-EPI)AfAm (>60 ml/min/1.73 sqM) Est GFR (CKD-EPI)NonAf (>60 ml/min/1.73 sqM) Glucose (74-99) mg/dL Calcium (8.4-10.2) mg/dL Magnesium (1.6-2.3) mg/dL Total Bilirubin (0.2-1.3) mg/dL AST (17-59) U/L ALT (21-72) U/L Alkaline Phosphatase (38-126) U/L Total Creatine Kinase (55-170) U/L CK-MB (CK-2) (0.0-2.4) ng/mL CK-MB (CK-2) Rel Index Troponin I (0.000-0.034) ng/mL Total Protein (6.3-8.2) g/dL Albumin (3.5-5.0) g/dL - Radiology Data Radiology results: image reviewed (Chest x-ray shows no acute process) Disposition Clinical Impression: Chest pain Disposition: ADMITTED IP TO THIS HOSP Is patient prescribed a controlled substance at d/c from ED?: No Referrals: Rodrigo Bonilla MD [Primary Care Provider] - 1-2 days Decision Time: 12:04
--- NOTE | 2018-03-23 11:14 | XR ---
EXAMINATION TYPE: XR chest 2V DATE OF EXAM: 03/23/2018 COMPARISON: NONE HISTORY: Chest pain since this morning. TECHNIQUE: Frontal and lateral views of the chest are obtained. FINDINGS: There is no focal air space opacity, pleural effusion, or pneumothorax seen. The cardiac silhouette size is within normal limits. Multilevel spurring in the thoracic spine is present. IMPRESSION: No acute cardiopulmonary process.
[2018-03-23 11:24] LABS: D-Dimer 0.33 mg/L FEU (<0.60); Prothrombin Time 10.3 sec (9.0-12.0)
[2018-03-23 11:25] LABS: ALT 19 U/L (21-72); AST 21 U/L (17-59); Albumin 3.9 g/dL (3.5-5.0); Alkaline Phosphatase 94 U/L (38-126); Anion Gap 8 mmol/L; Blood Urea Nitrogen 8 mg/dL (9-20); Carbon Dioxide 22 mmol/L (22-30); Chloride 110 mmol/L (98-107); Glucose 96 mg/dL (74-99); Magnesium 1.7 mg/dL (1.6-2.3); Potassium 4.4 mmol/L (3.5-5.1); Sodium 140 mmol/L (137-145); Total Bilirubin 0.5 mg/dL (0.2-1.3); Total Protein 7.2 g/dL (6.3-8.2)
[2018-03-23 11:35] LABS: Basophils # (A) 0.1 k/uL (0-0.2); Basophils % (A) 1 %; Creatine Kinase 89 U/L (55-170); Eosinophils # (A) 0.3 k/uL (0-0.7); Eosinophils % (A) 4 %; HCT 39.3 % (39.0-53.0); HGB 13.3 gm/dL (13.0-17.5); Lymphocytes # (A) 1.7 k/uL (1.0-4.8); Lymphocytes % (A) 26 %; MCH 29.1 pg (25.0-35.0); MCHC 33.8 g/dL (31.0-37.0); MCV 86.3 fL (80.0-100.0); Mean Platelet Volume 6.7; Monocytes # (A) 0.4 k/uL (0-1.0); Monocytes % (A) 6 %; Neutrophils % (A) 62 %; Platelet Count 260 k/uL (150-450); RBC 4.56 m/uL (4.30-5.90); RDW 13.2 % (11.5-15.5); WBC 6.5 k/uL (3.8-10.6)
[2018-03-23 11:46] LABS: Creatine Kinase MB 0.6 ng/mL (0.0-2.4); Troponin I <0.012 ng/mL (0.000-0.034)
[2018-03-23] MEDS ORDERED: NITROGLYCERIN SL TABS 0.4 MG TAB SUBLINGUAL PRN (11:57)
[2018-03-23] MEDS: METOPROLOL SUCCINATE (ER) 50 MG TAB.ER.24H PO SCH (14:23)
[2018-03-23] MEDS: PANTOPRAZOLE 40 MG TABLET PO SCH (14:23)
[2018-03-23] MEDS: SULFAMETHOX-TMP 800-160MG 1 EACH TAB PO SCH ×2 (14:24→20:49)
[2018-03-23] MEDS: oxyCODONE-APAP 10-325MG 1 EACH TAB PO PRN (15:46)
[2018-03-23] MEDS ORDERED: NITROGLYCERIN OINT 1 INCH/GM PACKET TOPICAL SCH (18:00)
[2018-03-23 18:30] LABS: Creatine Kinase 79 U/L (55-170)
[2018-03-23 18:43] LABS: Creatine Kinase MB 0.5 ng/mL (0.0-2.4); Troponin I <0.012 ng/mL (0.000-0.034)
[2018-03-23] MEDS ORDERED: ATORVASTATIN 40 MG TAB PO SCH (21:00)
[2018-03-23 21:27] LABS: Cholesterol 102 mg/dL (<200); HDL Cholesterol 23 mg/dL (40-60); LDL Cholesterol,Calculated 50 mg/dL (0-99); Triglycerides 147 mg/dL (<150)
--- NOTE | 2018-03-23 22:15 | HP ---
HISTORY AND PHYSICAL DATE OF ADMISSION: 03/23/2018 DATE OF SERVICE: 03/23/2018 PRESENTING COMPLAINT: Anxious. HISTORY OF PRESENTING COMPLAINT: This is a pleasant 57-year-old patient, rather in good health except for patient has had chronic low back pain from arthritis, herniated disc, etc. The patient does smoke close to a pack a day for quite a while. The patient was at work around 9 o'clock this morning and suddenly patient felt very panicky, nervous and felt he could even going to pass out. Hand started shaking, and just felt out of sorts. Blood pressure taken at work was 197/111. The patient has had 3 or 4 cups of coffee by then, which is his usual and also had about 3-4 cigarettes by then. The patient also had a similar episode the prior day. The patient also noticed that he has been getting a little bit short of breath. No swelling of the calf. No cough. No fever. No chills. The patient does have a wound on the right knee that is open present for a week. The patient presented for them. Troponin was negative. The patient is otherwise rather active. REVIEW OF SYSTEMS: CONSTITUTIONAL: None. HEENT none. RESPIRATORY as above. CARDIOVASCULAR as above. GASTROINTESTINAL: None. Genitourinary: None. MUSCULOSKELETAL: None. DERMATOLOGICAL: Breakdown of skin on the right knee. DERMATOLOGICAL, HEMATOLOGIC, LYMPHATIC: None. PSYCHIATRY as above, not normally anxious by nature. NEUROLOGICAL: None. PAST MEDICAL HISTORY: Coronary artery disease, with stent in April at [facility] in [place], GERD, hyperlipidemia, hypertension, chronic cervical and low back pain. PAST SURGICAL HISTORY: Cardiac cath with stent at [facility] in April 2017, pain clinic procedures. SOCIAL HISTORY: The patient lives with another friend with his brother. 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 Smokes close to a pack a day for 38 years. No alcohol. FAMILY HISTORY: Coronary artery disease, diabetes. Mother had coronary artery disease. HOME MEDICATIONS: 1. Percocet 10 one tablet q.6h p.r.n. 2. Bactrim DS 1 tablet p.o. q.12h. 3. Protonix 40 mg p.o. daily. 4. Toprol-XL 50 mg p.o. daily. 5. Lipitor 40 mg q.h.s. 6. Aspirin 81 mg p.o. daily. ALLERGIES: MORPHINE. PHYSICAL EXAMINATION: VITAL SIGNS: Vital signs on presentation, temperature 98.4, pulse 51, respiration 17, blood pressure 149/86, pulse ox 100 percent on 2 L. GENERAL APPEARANCE: Well built, BMI 31.5. Lying in bed comfortable. EYES: Pupils equal. Conjunctivae normal. HEENT: External appearance of nose and ears normal. Oral cavity normal. NECK: JVD not raised. Mass not palpable. RESPIRATORY: Effort normal. LUNGS: Lungs slightly decreased breath sounds. CARDIOVASCULAR: 1st and 2nd sounds normal. No edema. ABDOMEN: Soft, nontender. Liver and spleen not palpable. LYMPHATICS: No lymph nodes palpable in the neck and axilla. PSYCHIATRY: Alert and oriented x3. Mood and affect normal. NEUROLOGICAL: Pupils equal. Cranial nerves grossly intact. Power and sensation grossly intact. DERMATOLOGICAL: Break down of skin on the right knee with defined margins. INVESTIGATIONS: White count 6.5, hemoglobin 13.3, potassium 4.4, BUN 8, creatinine 0.86. Troponin negative. EKG tracing personally reviewed by me shows normal sinus rhythm. Chest x- ray film personally reviewed by me shows borderline cardiomegaly. Lung diggs are clear. ASSESSMENT: 1. The patient described a rather quaint episode of being panicky, nervous, syncope, hand shaking, has been a bit short of breath. The patient's D-dimer is unremarkable. This is not typical of any cardiac presentation. Patient's blood pressure was high, but this presentation this could be an affect more as opposed to a cause. 2. Coronary artery disease with stent in April of this year. 3. Obesity; BMI 31.5. 4. Gastroesophageal reflux disease. 5. Hyperlipidemia. 6. Essential hypertension. 7. Right knee cellulitis having failed outpatient treatment with Bactrim. 8. Chronic nicotine dependence, patient is a cigarette smoker. PLAN: We will put bacitracin on the skin with local dressing. Home medications are continued. We will order a 2-D echocardiogram. Patient does not appear to be of a nervous disposition, though patient does drink several cups of coffee a day. I wonder if this is caffeine overload manifestation. We will get a cardiology opinion. Get a 2- D echocardiogram. Copy to Dr. Bonilla. MMODL / IJN: [id number] /
[2018-03-23] MEDS: NICOTINE 21MG/24HR PATCH TRANSDERM SCH (22:37)
[2018-03-23 23:55] LABS: Creatine Kinase 70 U/L (55-170)
[2018-03-24 00:09] LABS: Creatine Kinase MB 0.5 ng/mL (0.0-2.4); Troponin I <0.012 ng/mL (0.000-0.034)
[2018-03-24] MEDS: oxyCODONE-APAP 10-325MG 1 EACH TAB PO PRN ×2 (05:40→11:55)
[2018-03-24] MEDS ORDERED: ASPIRIN 81 MG PO SCH (09:00)
[2018-03-24] MEDS ORDERED: ASPIRIN 325 MG TAB PO SCH (09:00)
[2018-03-24] MEDS: PANTOPRAZOLE 40 MG TABLET PO SCH (11:51)
[2018-03-24] MEDS: METOPROLOL SUCCINATE (ER) 50 MG TAB.ER.24H PO SCH (11:52)
[2018-03-24] MEDS: NICOTINE 21MG/24HR PATCH TRANSDERM SCH (11:52)
--- NOTE | 2018-03-24 11:59 | NM ---
EXAMINATION TYPE: NM stress cardiolite complete DATE OF EXAM: 03/24/2018 COMPARISON: NONE HISTORY: Precordial chest pain and abnormal EKG TECHNIQUE: After the intravenous administration of 9.17 mCi Tc 99m Sestamibi - Rest images obtained 45 minutes post injection. The patient exercised using a JOEL protocol and 1 minute prior to peak exercise was injected with 24.7 mCi Tc 99m Sestamibi - Stress images obtained 15 minutes post injecti on. FINDINGS: Targeted heart rate was achieved during performance of the study. Review of stress and rest SPECT jolie ges demonstrates decreased perfusion inferior wall which improves following stress imaging likely ref lecting attenuation artifact. Gated analysis shows normal wall motion with an estimated left ventricu lar ejection fraction of 59 %. IMPRESSION: No scintigraphic evidence for reversible ischemia
[2018-03-24 12:04] VITALS: RESP 16
--- NOTE | 2018-03-24 12:37 | P.CRDCN ---
History of Present Illness History of present illness: This is a pleasant 57-year-old male past medical history significant for coronary artery disease status post angioplasty to the mid RCA, hypertension , dyslipidemia chronic nicotine dependence. We have been asked to see him in consultation for complaints of chest pain. He states while at work he became extremely dizzy, lightheaded and felt very shaky and uneasy. He states his hands were trembling and he felt as though he could not take a deep breath. He denies any symptoms initially of chest discomfort. En route to the hospital with EMS he started grinding his teeth and he states when started feeling a discomfort in the jaw neck and head. Upon arrival he states his symptoms have completely resolved. He denies any further dizziness, jaw pain or shaky feeling. He is seen and examined resting comfortably in bed. He states his April he underwent cardiac cathetreization and stent placement at [facility] in [place], we will attempt to obtain those records. EKG reveals sinus mechanism with no acute ST or T wave abnormalities noted. Chest x-ray is negative for an acute cardiopulmonary process. Laboratory data reviewed, WBC 6.5, hemoglobin 13.3, platelets 260, d-dimer 0.33 , sodium 140, potassium 4.4, magnesium 1.7, creatinine 0.86, cardiac enzymes negative 3, LDL 58 HDL 23. Current cardiac medications include Toprol 50 mg daily, atorvastatin 40 mg daily and aspirin 81 mg daily. He recently underwent cardiac catheterization at [facility] April 2017 at which time he underwent stent placement to the RCA in the mid- portion. He also has 20-30% lesion noted to the mid-circumflex artery. He had normal LV systolic function at that time. At the time of my exam: CONSTITUTIONAL: Denies fever. Denies chills. EYES: Denies blurred vision. Denies vision changes. Denies eye pain. EARS, NOSE, MOUTH & THROAT: Denies headache. Denies sore throat. Denies ear pain. CARDIOVASCULAR: Denies chest pain. Denies shortness of breath. Denies orthopnea. Denies PND. Denies palpitations. RESPIRATORY: Denies cough. GASTROINTESTINAL: Denies abdominal pain. Denies diarrhea. Denies constipation. Denies nausea. Denies vomiting. MUSCULOSKELETAL: Denies myalgias. INTEGUMENTARY: Denies pruitis. Denies rash. NEUROLOGIC: Denies numbness. Denies tingling. Denies weakness. PSYCHIATRIC: Denies anxiety. Denies depression. ENDOCRINE: Denies fatigue. Denies weight change. Denies polydipsia. Denies polyurina. GENITOURINARY: Denies burning, hematuria or urgency with micturation. HEMATOLOGIC: Denies history of anemia. Denies bleeding. Blood pressure 39/65 heart rate 65 afebrile maintaining oxygen saturation on room air GENERAL: This is a 57-year-old male in no apparent distress at the time of my examination. HEENT: Head is atraumatic, normocephalic. Pupils are equal, round. Sclerae anicteric. Conjunctivae are clear. Mucous membranes of the mouth are moist. Neck is supple. There is no jugular venous distention. No carotid bruit is heard. LUNGS: Clear to auscultation no wheezes, rales or rhonchi. No chest wall tenderness is noted on palpation or with deep breathing. HEART: Regular rate and rhythm without murmurs, rubs or gallops. S1 and S2 heard. ABDOMEN: Soft, nontender. Bowel sounds are heard. No organomegaly noted. EXTREMITIES: No evidence of peripheral edema and no calf tenderness noted. VASCULAR: Radial and dorsalis pedis pulses palpated, no evidence of clubbing. NEUROLOGIC: Patient is awake, alert and oriented x3. ASSESSMENT Chest pain, atypical. An acute coronary event is ruled out with EKG evidence of ischemia and negative cardiac enzymes. History of coronary artery disease status post angioplasty to the mid RCA. He states he stopped taking his Plavix approximately 3 months ago and recommendation from his imaging services director. Hypertension Dyslipidemia Chronic nicotine dependence PLAN An acute coronary event is ruled out with EKG evidence of ischemia and negative cardiac enzymes. Obtain 2-D echocardiogram and Doppler study to assess cardiac structure and function. Perform Cardiolite stress test to assess for reversible cardiac ischemia. If stress test is normal he is stable from a cardiac perspective. Follow up with his primary imaging services director upon discharge. Thank you thalia for this consultation. Nurse Practitioner note has been reviewed, I agree with a documented findings and plan of care. Patient was seen and examined. Past Medical History Past Medical History: Coronary Artery Disease (CAD), Chest Pain / Angina, GERD/ Reflux, Hyperlipidemia, Hypertension, Musculoskeletal Disorder Additional Past Medical History / Comment(s): Recent r knee skin infection tx with antibiotic-pt states not getting much better, chronic cervical and lower back pain, bronchitis. History of Any Multi-Drug Resistant Organisms: None Reported Past Surgical History: No Surgical Hx Reported, Heart Catheterization With Stent Additional Past Surgical History / Comment(s): [facility],, pain clinic procedures, cyst lanced on R shoulder - 2016 Past Anesthesia/Blood Transfusion Reactions: No Reported Reaction Date of Last Stent Placement:: April 2017 Smoking Status: Current every day smoker - Past Family History Mother Family Medical History: Coronary Artery Disease (CAD), Diabetes Mellitus Additional Family Medical History / Comment(s): Mother is . She had 3 vessel CABG Sister(s) Family Medical History: Coronary Artery Disease (CAD), Vascular Disorder Additional Family Medical History / Comment(s): Sister had CABG-3 vessel. She at the age of 56yrs which pt believes had to do with her blood thinners and a brain anuerysm. Father Family Medical History: Myocardial Infarction (TN) Additional Family Medical History / Comment(s): Father of a massive TN at the age of 65yrs. Medications and Allergies Home Medications Medication Instructions Recorded Confirmed Type oxyCODONE-APAP 10-325MG [Percocet 1 tab PO Q6HR PRN 08/24/13 03/23/18 History 10-325 mg] Aspirin EC [Ecotrin Low Dose] 81 mg PO DAILY 03/23/18 03/23/18 History Atorvastatin [Lipitor] 40 mg PO HS 03/23/18 03/23/18 History Metoprolol Succinate [Toprol Xl] 50 mg PO DAILY 03/23/18 03/23/18 History Pantoprazole Sodium [Protonix] 40 mg PO DAILY 03/23/18 03/23/18 History Sulfamethox-Tmp 800-160Mg [Bactrim 1 tab PO Q12HR 03/23/18 03/23/18 History DS 800-160 mg] Allergies Allergy/AdvReac Type Severity Reaction Status Date / Time morphine AdvReac Rash/Hives Verified 03/23/18 10:39 Physical Exam Vitals: Vital Signs Temp Pulse Pulse Resp BP BP BP 03/24/18 03:36 65 16 03/24/18 03:33 97.9 F 65 16 139/65 03/23/18 23:30 60 16 03/23/18 23:20 98.3 F 60 16 131/67 03/23/18 20:00 98.2 F 62 16 131/60 03/23/18 16:00 57 L 18 03/23/18 15:55 98.4 F 57 L 18 112/64 03/23/18 12:56 98.1 F 62 18 132/70 03/23/18 11:25 98.3 F 57 L 18 121/73 03/23/18 10:26 98.4 F 61 17 149/86 Pulse Ox 03/24/18 03:36 03/24/18 03:33 98 03/23/18 23:30 03/23/18 23:20 94 L 03/23/18 20:00 96 03/23/18 16:00 03/23/18 15:55 97 03/23/18 12:56 98 03/23/18 11:25 99 03/23/18 10:26 100 Intake and Output 03/23/18 03/24/18 03/24/18 22:59 06:59 14:59 Intake Total 580 20 Balance 580 20 Intake: Oral 580 20 Results 03/23/18 10:54 03/23/18 10:54 Cardiac Enzymes 03/23/18 03/23/18 03/23/18 Range/Units 10:54 10:54 17:40 AST 21 (17-59) U/L CK-MB (CK-2) 0.6 0.5 (0.0-2.4) ng/mL Troponin I <0.012 <0.012 (0.000-0.034) ng/mL 03/23/18 Range/Units 22:59 AST (17-59) U/L CK-MB (CK-2) 0.5 (0.0-2.4) ng/mL Troponin I <0.012 (0.000-0.034) ng/mL Coagulation 03/23/18 Range/Units 10:54 PT 10.3 (9.0-12.0) sec APTT 26.0 (22.0-30.0) sec Lipids 03/23/18 Range/Units 10:54 Triglycerides 147 (<150) mg/dL Cholesterol 102 (<200) mg/dL HDL Cholesterol 23 L (40-60) mg/dL CBC 03/23/18 Range/Units 10:54 WBC 6.5 (3.8-10.6) k/uL RBC 4.56 (4.30-5.90) m/uL Hgb 13.3 (13.0-17.5) gm/dL Hct 39.3 (39.0-53.0) % Plt Count 260 (150-450) k/uL Comprehensive Metabolic Panel 03/23/18 Range/Units 10:54 Sodium 140 (137-145) mmol/L Potassium 4.4 (3.5-5.1) mmol/L Chloride 110 H (98-107) mmol/L Carbon Dioxide 22 (22-30) mmol/L BUN 8 L (9-20) mg/dL Creatinine 0.86 (0.66-1.25) mg/dL Glucose 96 (74-99) mg/dL Calcium 9.0 (8.4-10.2) mg/dL AST 21 (17-59) U/L ALT 19 L (21-72) U/L Alkaline Phosphatase 94 (38-126) U/L Total Protein 7.2 (6.3-8.2) g/dL Albumin 3.9 (3.5-5.0) g/dL Current Medications Generic Name Dose Route Start Last Admin Trade Name Freq PRN Reason Stop Dose Admin Aspirin 81 mg 03/24/18 09:00 Aspirin PO DAILY [facility] Atorvastatin Calcium 40 mg 03/23/18 21:00 03/23/18 20:49 Lipitor PO 40 mg HS RUPESH Administration Metoprolol Succinate 50 mg 03/23/18 12:45 03/23/18 14:23 Toprol Xl PO 50 mg DAILY RUPESH Administration Nicotine 1 patch 03/23/18 21:30 03/23/18 22:37 Habitrol 21mg/24hr Patch TRANSDERM Not Given DAILY [facility] Nitroglycerin 0.4 mg 03/23/18 11:57 Nitrostat SUBLINGUAL Q5M PRN Chest Pain Oxycodone/Acetaminophen 1 each 03/23/18 12:44 03/24/18 05:40 Percocet 10-325 PO 1 each Q6HR PRN Administration Pain Pantoprazole Sodium 40 mg 03/23/18 12:45 03/23/18 14:23 Protonix PO 40 mg [id number] RUPESH Administration Sodium Chloride 10 ml 03/23/18 21:00 03/23/18 20:49 Saline Flush IV 10 ml BID RUPESH Administration Intake and Output 03/23/18 03/24/18 03/24/18 22:59 06:59 14:59 Intake Total 580 20 Balance 580 20 Intake: Oral 580 20 03/23/18 10:54 03/23/18 10:54
--- NOTE | 2018-03-24 12:44 | ECHOF ---
Referral Reason:sob MEASUREMENTS -------- HEIGHT: 180.3 cm WEIGHT: 102.1 kg BP: 139/65 RVIDd: 3.3 cm (< 3.3) IVSd: 1.1 cm (0.6 - 1.1) LVIDd: 5.5 cm (3.9 - 5.3) LVPWd: 1.2 cm (0.6 - 1.1) IVSs: 1.5 cm LVIDs: 4.1 cm LVPWs: 1.5 cm LAESV Index (A-L): 26.96 ml/m Ao Diam: 3.8 cm (2.0 - 3.7) AV Cusp: 2.2 cm (1.5 - 2.6) LA Diam: 3.0 cm (2.7 - 3.8) MV E Lucio: 0.98 m/s MV DecT: 300 ms MV A Lucio: 0.60 m/s MV E/A Ratio: 1.65 RAP: 10.00 mmHg RVSP: 25.23 mmHg FINDINGS -------- Resting bradycardia (HR<60bpm). This was a technically adequate study. The left ventricular size is normal. There is borderline concentric left ventricular hypertrophy. Overall left ventricular systolic function is normal with, an EF between 55 - 60 %. The right ventricle is normal in size and function. Normal LA size by volume 22+/-6 ml/m2. The right atrium is normal in size. Aortic valve is trileaflet and is mildly thickened. There is no evidence of aortic regurgitation. There is no evidence of aortic stenosis. The mitral valve leaflets are mildly thickened. There is trace to mild mitral regurgitation. Trace tricuspid regurgitation present. Right ventricular systolic pressure is normal at < 35 mmHg. There is no evidence of pulmonary hypertension. Trace/mild (physiologic) pulmonic regurgitation. The aortic root size is normal. The IVC is dilated with normal collapse. There is no pericardial effusion. CONCLUSIONS -------- 1. Resting bradycardia (HR<60bpm). 2. This was a technically adequate study. 3. The left ventricular size is normal. 4. There is borderline concentric left ventricular hypertrophy. 5. Overall left ventricular systolic function is normal with, an EF between 55 - 60 %. 6. Normal LA size by volume 22+/-6 ml/m2. 7. Aortic valve is trileaflet and is mildly thickened. 8. The mitral valve leaflets are mildly thickened. 9. There is trace to mild mitral regurgitation. 10. Trace tricuspid regurgitation present. 11. Right ventricular systolic pressure is normal at < 35 mmHg. 12. There is no evidence of pulmonary hypertension. 13. Trace/mild (physiologic) pulmonic regurgitation. 14. The aortic root size is normal. 15. The IVC is dilated with normal collapse. 16. There is no pericardial effusion. SENIOR MARKET RESEARCH ANALYST: Naren Gibson RDCS
[2018-03-24 15:58] VITALS: BP 133/74; PULSE 63; TEMP 98.7
[2018-03-24] MEDS ORDERED: BACITRACIN 500 UNIT/GM OINT 28.4 GM TUBE TOPICAL SCH (17:30)
[2018-03-24] MEDS ORDERED: DOXYCYCLINE 100 MG CAP PO SCH (18:00)
--- NOTE | 2018-03-25 12:08 | EST ---
EXERCISE STRESS DATE OF SERVICE: 03/24/2018 AGE: 57 SEX: Male HT: 5'11" WT: 230 pounds PROTOCOL: Cardiolite Vince STAGE: III DURATION OF EXERCISE: 8 minutes 30 seconds HEART RATE REST: 68 BLOOD PRESSURE REST: 107/69 MAXIMUM HEART RATE ACHIEVED: 141 MAXIMUM BLOOD PRESSURE: 216/58 85% MPHR: 139 100% MPHR: 164 METS: 8.5 INDICATIONS: Chest pain. CLINICAL INFORMATION: The patient was exercised for a total period of 8 minutes and 30 seconds. The peak heart rate of 141 was achieved. Maximum blood pressure of 216/58 mmHg was noted. Resting EKG shows normal sinus rhythm with normal ID interval and QRS duration and normal ST-T waves. No ST-segment depression suggestive of ischemia is noted. The patient did not complain of any chest pain during the test. FINAL IMPRESSION: 1. This exercise test not suggestive of ischemia. 2. Patient's exercise tolerance is normal. 3. The results of the nuclear study will follow. MMBROOKEL / IJN: [id number] /
--- NOTE | 2018-03-30 11:36 | DS ---
DISCHARGE SUMMARY DATE OF ADMISSION: March 23, 2018. DATE OF DISCHARGE: March 24, 2018. FINAL DIAGNOSES: 1. Possible acute panic attack/acute anxiety attack. 2. Coronary artery disease with stent in April of this year. 3. Obesity; BMI 31.5. 4. Gastroesophageal reflux disease. 5. Hyperlipidemia. 6. Essential hypertension. 7. Right knee cellulitis having failed outpatient treatment. 8. Chronic nicotine dependence, patient is a cigarette smoker. HOSPITAL COURSE: This patient who does smoke and does drink quite a bit of coffee, presented with an episode of feeling panicky, nervous and nearly going to pass out, just felt out of sorts. Blood pressure was high. The patient does smoke cigarettes and drink quite a bit of coffee. The patient did have a Cardiolite stress test that came back to be negative. 2D echo showed preserved LV function. I advised the patient to cut back on caffeine and nicotine. CONSULTATION: Dr. Blake Jiménez from Cardiology. PHYSICAL EXAMINATION: VITAL SIGNS: Temperature 98.7, pulse 63, respiratory rate 16, blood pressure 133/74, pulse ox 97% on room air. White count 6.5, hemoglobin 13.3. Troponin x3 negative. DISCHARGE MEDICATIONS: 1. Percocet 10 one tablet q.6 p.r.n. 2. Aspirin 81 mg a day. 3. Lipitor 40 mg at bedtime. 4. Toprol-XL 50 mg a day. 5. Protonix 40 mg a day. 6. Bacitracin topical b.i.d. 7. Doxycycline 100 mg b.i.d., 20 tablets. 8. Nicotine 1 patch transdermal. 9. Bacitracin cream to the knee twice a day. FOLLOWUP: Follow up with Dr. Bonilla in [place] in 3 days. Follow up with Dr. Blake Jiménez in 1 week. Patient to check daily blood pressure in the morning. Keep a log. MMODL / IJN: [id number] /
== END 2018-03-24 19:45 | disposition home or self-care (01) ==
LOC: EC 10:18 → 1SOBS 12:11
PROVIDERS: ADMIT Hospitalist; ATTEND Hospitalist
DX: R07.89 Other chest pain (principal); R42 Dizziness and giddiness; R45.0 Nervousness; R55 Syncope and collapse; M54.2 Cervicalgia; R06.02 Shortness of breath; R11.0 Nausea; R03.0 Elevated blood-pressure reading, without diagnosis of hypertension; Z95.5 Presence of coronary angioplasty implant and graft; I25.10 Atherosclerotic heart disease of native coronary artery without angina pectoris; E66.9 Obesity, unspecified; Z68.31 Body mass index [BMI] 31.0-31.9, adult; K21.9 Gastro-esophageal reflux disease without esophagitis; E78.5 Hyperlipidemia, unspecified; I10 Essential (primary) hypertension; L03.115 Cellulitis of right lower limb; F17.210 Nicotine dependence, cigarettes, uncomplicated; M54.5 Low back pain; M19.90 Unspecified osteoarthritis, unspecified site; G89.29 Other chronic pain; Z79.82 Long term (current) use of aspirin; Z79.899 Other long term (current) drug therapy; Z88.5 Allergy status to narcotic agent; Z83.3 Family history of diabetes mellitus; Z82.49 Family history of ischemic heart disease and other diseases of the circulatory system
CPT/HCPCS: 99285; 36415; 93005; 93017; 93306; 85379; 80061; 80053; 82550; 82553; 83735; 84484; 85025; 85610; 85730; 87070; 87205; 71046; 78452; G0378 ×2; A9500; S4990

== ENCOUNTER → 2018-04-08 | Outpatient (CLI) | payer OTHER ==
--- NOTE | 2018-04-08 09:23 | CT ---
EXAMINATION TYPE: CT brain wo con DATE OF EXAM: 04/08/2018 COMPARISON: 02/02/2014 HISTORY: Dizziness CT DLP: 1126.[address] of the brain was performed. The ventricles, basal cisterns and sulci overlying the cerebral convexities demonstrate mild enlargem ent. There is no evidence for intracranial hemorrhage or sulcal effacement. There is decreased attenuation about the periventricular white matter and deep white matter of both c erebral hemispheres, compatible with chronic small vessel ischemia. Differential diagnosis does inclu de demyelination. No mass effects are seen.No midline shift. Osseous calvarium is intact. If symptoms persist consider MRI. IMPRESSION: 1. Age related atrophic and chronic small vessel ischemic change without acute intracranial process s een at this time.
== END | disposition home or self-care (01) ==
LOC: RADCTMAIN 07:36
PROVIDERS: ATTEND Nurse Practitioner Family
DX: I67.82 Cerebral ischemia (principal); G31.1 Senile degeneration of brain, not elsewhere classified
CPT/HCPCS: 70450

== ENCOUNTER 2019-03-31 13:13 | Inpatient (IN) | payer OTHER ==
[2019-03-31] MEDS ORDERED: ASPIRIN 81 MG PO STA (13:47)
[2019-03-31] MEDS ORDERED: NITROGLYCERIN OINT 1 INCH/GM PACKET TOPICAL STA (13:47)
[2019-03-31 14:23] LABS: Basophils % (A) 0 %; Eosinophils # (A) 0.4 k/uL (0-0.7); Eosinophils % (A) 4 %; HCT 40.6 % (39.0-53.0); HGB 14.2 gm/dL (13.0-17.5); Lymphocytes % (A) 22 %; MCH 30.8 pg (25.0-35.0); MCHC 34.9 g/dL (31.0-37.0); Monocytes # (A) 0.6 k/uL (0-1.0); Monocytes % (A) 6 %; Neutrophils % (A) 66 %; Platelet Count 335 k/uL (150-450); RBC 4.61 m/uL (4.30-5.90); RDW 12.4 % (11.5-15.5); WBC 9.2 k/uL (3.8-10.6)
--- NOTE | 2019-03-31 14:23 | XR ---
EXAMINATION TYPE: XR chest 2V DATE OF EXAM: 03/31/2019 COMPARISON: Chest x-ray March 23, 2018. HISTORY: Chest pain. TECHNIQUE: Frontal and lateral views of the chest are obtained. FINDINGS: Overlying EKG leads redemonstrated. There is no new suspicious focal air space opacity, pl eural effusion, or pneumothorax seen. The cardiac silhouette size remains within normal limits. Mul tilevel spurring of the spine. IMPRESSION: No acute cardiopulmonary process. No significant change from prior.
[2019-03-31 14:25] LABS: INR 0.9 (<1.2); Partial Thromboplastin Time 24.8 sec (22.0-30.0)
[2019-03-31 14:32] LABS: ALT 12 U/L (4-49); AST 24 U/L (17-59); African American GFR (CKD) >90 (>60 ml/min/1.73 sqM); Albumin 4.2 g/dL (3.5-5.0); Alkaline Phosphatase 76 U/L (38-126); Anion Gap 8 mmol/L; Blood Urea Nitrogen 12 mg/dL (9-20); Calcium 9.3 mg/dL (8.4-10.2); Carbon Dioxide 27 mmol/L (22-30); Chloride 102 mmol/L (98-107); Glucose 110 mg/dL (74-99); Non-African American GFR(CKD) >90 (>60 ml/min/1.73 sqM); Potassium 4.3 mmol/L (3.5-5.1); Sodium 137 mmol/L (137-145); Total Bilirubin 0.6 mg/dL (0.2-1.3); Total Protein 7.1 g/dL (6.3-8.2)
--- NOTE | 2019-03-31 14:48 | ED ---
General Adult HPI - General Chief complaint: Chest Pain Stated complaint: Chest pain Time Seen by Provider: 03/31/19 13:20 Source: patient, EMS, RN notes reviewed, old records reviewed Mode of arrival: EMS Limitations: no limitations - History of Present Illness Initial comments: This a 58-year-old male who presents emergency Department stating that he has a past history of cardiac stent. Patient states she's been experiencing chest pain on and off. Patient states today he came on it was quite significant he took 3 nitroglycerin it didn't seem to take the pain away he also became somewhat sweaty so he called EMS per patient denies any difficulty breathing shortest breath per patient denies any nausea. Patient denies any abdominal pain. Patient denies any recent fever chills or cough. Patient states this is been ongoing and he has been admitted for this before in the last stress test he had was normal. Patient states today's symptoms are worse in any of the previous symptoms. - Related Data Home Medications Medication Instructions Recorded Confirmed oxyCODONE-APAP 10-325MG [Percocet 1 tab PO Q6HR PRN 08/24/13 03/23/18 10-325 mg] Aspirin EC [Ecotrin Low Dose] 81 mg PO DAILY 03/23/18 03/23/18 Atorvastatin [Lipitor] 40 mg PO HS 03/23/18 03/23/18 Metoprolol Succinate [Toprol Xl] 50 mg PO DAILY 03/23/18 03/23/18 Pantoprazole Sodium [Protonix] 40 mg PO DAILY 03/23/18 03/23/18 Previous Rx's Medication Instructions Recorded Bacitracin Oint 1 applic TOPICAL BID #0 applic 03/24/18 Doxycycline [Vibramycin] 100 mg PO BID #20 cap 03/24/18 Nicotine 21Mg/24Hr Patch [Habitrol] 1 patch TRANSDERM DAILY #30 patch 03/24/18 Allergies Allergy/AdvReac Type Severity Reaction Status Date / Time morphine AdvReac Rash/Hives Verified 03/23/18 10:39 Review of Systems ROS Statement: Those systems with pertinent positive or pertinent negative responses have been documented in the HPI. ROS Other: All systems not noted in ROS Statement are negative. Past Medical History Past Medical History: Coronary Artery Disease (CAD), Chest Pain / Angina, GERD/Reflux, Hyperlipidemia, Hypertension, Musculoskeletal Disorder Additional Past Medical History / Comment(s): Recent r knee skin infection tx with antibiotic-pt states not getting much better, chronic cervical and lower back pain, bronchitis. History of Any Multi-Drug Resistant Organisms: None Reported Past Surgical History: No Surgical Hx Reported, Heart Catheterization With Stent Additional Past Surgical History / Comment(s): PCI with stent at [facility] April,, pain clinic procedures, cyst lanced on R shoulder - 2016 Past Anesthesia/Blood Transfusion Reactions: No Reported Reaction Date of Last Stent Placement:: April 2017 Past Psychological History: No Psychological Hx Reported Smoking Status: Current every day smoker Past Alcohol Use History: None Reported Past Drug Use History: None Reported - Past Family History Mother Family Medical History: Coronary Artery Disease (CAD), Diabetes Mellitus Additional Family Medical History / Comment(s): Mother is . She had 3 vessel CABG Sister(s) Family Medical History: Coronary Artery Disease (CAD), Vascular Disorder Additional Family Medical History / Comment(s): Sister had CABG-3 vessel. She at the age of 56yrs which pt believes had to do with her blood thinners and a brain anuerysm. Father Family Medical History: Myocardial Infarction ([place]) Additional Family Medical History / Comment(s): Father of a massive CO at the age of 65yrs. General Exam - General Exam Comments Initial Comments: GENERAL: Patient is well-developed and well-nourished. Patient is nontoxic and well- hydrated and is in mild distress. ENT: Neck is soft and supple. No significant lymphadenopathy is noted. Oropharynx is clear. Moist mucous membranes. Neck has full range of motion without eliciting any pain. EYES: The sclera were anicteric and conjunctiva were pink and moist. Extraocular movements were intact and pupils were equal round and reactive to light. Eyelids were unremarkable. PULMONARY: Unlabored respirations. Good breath sounds bilaterally. No audible rales rhonchi or wheezing was noted. CARDIOVASCULAR: There is a regular rate and rhythm without any murmurs gallops or rubs. ABDOMEN: Soft and nontender with normal bowel sounds. No palpable organomegaly was noted. There is no palpable pulsatile mass. SKIN: Skin is clear with no lesions or rashes and otherwise unremarkable. NEUROLOGIC: Patient is alert and oriented x3. Cranial nerves II through XII are grossly intact. Motor and sensory are also intact. Normal speech, volume and content. Symmetrical smile. Cerebellar exam grossly intact. MUSCULOSKELETAL: Normal extremities with adequate strength and full range of motion. LYMPHATICS: No significant lymphadenopathy is noted PSYCHIATRIC: Normal psychiatric evaluation. Limitations: no limitations Course Vital Signs 03/31/19 03/31/19 13:16 13:22 Temperature 98.3 F Pulse Rate 77 Respiratory 20 20 Rate Blood Pressure 149/96 O2 Sat by Pulse 96 Oximetry Medical Decision Making - Medical Decision Making EKG shows normal sinus rhythm at 77 bpm OH interval 166 QRS is 98 QT interval 38 4 QTC is 434 Chest x-ray shows no acute abnormality. I spoke with some physicians agreed to admit the patient admitted the patient wrote admitting orders. - Lab Data Result diagrams: 03/31/19 13:27 03/31/19 13:27 Lab Results 03/31/19 03/31/19 03/31/19 Range/Units 13:27 13:27 13:27 WBC 9.2 (3.8-10.6) k/uL RBC 4.61 (4.30-5.90) m/uL Hgb 14.2 (13.0-17.5) gm/dL Hct 40.6 (39.0-53.0) % MCV 88.0 (80.0-100.0) fL MCH 30.8 (25.0-35.0) pg MCHC 34.9 (31.0-37.0) g/dL RDW 12.4 (11.5-15.5) % Plt Count 335 (150-450) k/uL Neutrophils % 66 % Lymphocytes % 22 % Monocytes % 6 % Eosinophils % 4 % Basophils % 0 % Neutrophils # 6.0 (1.3-7.7) k/uL Lymphocytes # 2.0 (1.0-4.8) k/uL Monocytes # 0.6 (0-1.0) k/uL Eosinophils # 0.4 (0-0.7) k/uL Basophils # 0.0 (0-0.2) k/uL PT 10.0 (9.0-12.0) sec INR 0.9 (<1.2) APTT 24.8 (22.0-30.0) sec Sodium 137 (137-145) mmol/L Potassium 4.3 (3.5-5.1) mmol/L Chloride 102 (98-107) mmol/L Carbon Dioxide 27 (22-30) mmol/L Anion Gap 8 mmol/L BUN 12 (9-20) mg/dL Creatinine 0.85 (0.66-1.25) mg/dL Est GFR (CKD-EPI)AfAm >90 (>60 ml/min/1.73 sqM) Est GFR (CKD-EPI)NonAf >90 (>60 ml/min/1.73 sqM) Glucose 110 H (74-99) mg/dL Calcium 9.3 (8.4-10.2) mg/dL Magnesium 2.0 (1.6-2.3) mg/dL Total Bilirubin 0.6 (0.2-1.3) mg/dL AST 24 (17-59) U/L ALT 12 (4-49) U/L Alkaline Phosphatase 76 (38-126) U/L Troponin I (0.000-0.034) ng/mL Total Protein 7.1 (6.3-8.2) g/dL Albumin 4.2 (3.5-5.0) g/dL 03/31/19 Range/Units 13:27 WBC (3.8-10.6) k/uL RBC (4.30-5.90) m/uL Hgb (13.0-17.5) gm/dL Hct (39.0-53.0) % MCV (80.0-100.0) fL MCH (25.0-35.0) pg MCHC (31.0-37.0) g/dL RDW (11.5-15.5) % Plt Count (150-450) k/uL Neutrophils % % Lymphocytes % % Monocytes % % Eosinophils % % Basophils % % Neutrophils # (1.3-7.7) k/uL Lymphocytes # (1.0-4.8) k/uL Monocytes # (0-1.0) k/uL Eosinophils # (0-0.7) k/uL Basophils # (0-0.2) k/uL PT (9.0-12.0) sec INR (<1.2) APTT (22.0-30.0) sec Sodium (137-145) mmol/L Potassium (3.5-5.1) mmol/L Chloride (98-107) mmol/L Carbon Dioxide (22-30) mmol/L Anion Gap mmol/L BUN (9-20) mg/dL Creatinine (0.66-1.25) mg/dL Est GFR (CKD-EPI)AfAm (>60 ml/min/1.73 sqM) Est GFR (CKD-EPI)NonAf (>60 ml/min/1.73 sqM) Glucose (74-99) mg/dL Calcium (8.4-10.2) mg/dL Magnesium (1.6-2.3) mg/dL Total Bilirubin (0.2-1.3) mg/dL AST (17-59) U/L ALT (4-49) U/L Alkaline Phosphatase (38-126) U/L Troponin I <0.012 (0.000-0.034) ng/mL Total Protein (6.3-8.2) g/dL Albumin (3.5-5.0) g/dL Disposition Clinical Impression: Chest pain Disposition: ADMITTED IP TO THIS HOSP Referrals: Rodrigo Bonilla MD [Primary Care Provider] - 1-2 days Time of Disposition: 15:07
[2019-03-31] MEDS ORDERED: NITROGLYCERIN SL TABS 0.4 MG TAB SUBLINGUAL PRN (15:07)
--- NOTE | 2019-03-31 15:40 | P.HPIM ---
History of Present Illness H&P Date: 03/31/19 Chief Complaint: Chest pain Subjective 58-year-old reported to the emergency room because of chest pain. He states that he has been complaining of intermittent chest pains for the past 2-3 weeks. Today he was at work around 1145 when he and noted increased anxiety and chest pain. He describes the pain as sharp, nonradiating monitor. At the time patient's pain resolved. He took 3 nitroglycerin and the Xanax. He denies fever or chills, no cough, no shortness of breath. He had chest pain befre and has received nitroglycerin. Review of Systems 10 systems reviewed, pertinent positive and negative findings as in the HPI, positive for chest pain, no shortness of breath, no cough no fever. Past Medical History Past Medical History: Coronary Artery Disease (CAD), Chest Pain / Angina, GERD/Reflux, Hyperlipidemia, Hypertension, Musculoskeletal Disorder Additional Past Medical History / Comment(s): Recent r knee skin infection tx with antibiotic-pt states not getting much better, chronic cervical and lower back pain, bronchitis. History of Any Multi-Drug Resistant Organisms: None Reported Past Surgical History: No Surgical Hx Reported, Heart Catheterization With Stent Additional Past Surgical History / Comment(s): PCI with stent at [facility] April,, pain clinic procedures, cyst lanced on R shoulder - 2016 Past Anesthesia/Blood Transfusion Reactions: No Reported Reaction Date of Last Stent Placement:: April 2017 Past Psychological History: No Psychological Hx Reported Smoking Status: Current every day smoker Past Alcohol Use History: None Reported Past Drug Use History: None Reported - Past Family History Mother Family Medical History: Coronary Artery Disease (CAD), Diabetes Mellitus Additional Family Medical History / Comment(s): Mother is . She had 3 vessel CABG Sister(s) Family Medical History: Coronary Artery Disease (CAD), Vascular Disorder Additional Family Medical History / Comment(s): Sister had CABG-3 vessel. She at the age of 56yrs which pt believes had to do with her blood thinners and a brain anuerysm. Father Family Medical History: Myocardial Infarction ([place]) Additional Family Medical History / Comment(s): Father of a massive [place] at the age of 65yrs. Medications and Allergies Home Medications Medication Instructions Recorded Confirmed Type RX: oxyCODONE-APAP 10-325MG 1 tab PO Q6HR PRN 08/24/13 03/23/18 History [Percocet 10-325 mg] RX: Aspirin EC [Ecotrin Low Dose] 81 mg PO DAILY 03/23/18 03/23/18 History RX: Atorvastatin [Lipitor] 40 mg PO HS 03/23/18 03/23/18 History RX: Metoprolol Succinate [Toprol 50 mg PO DAILY 03/23/18 03/23/18 History Xl] RX: Pantoprazole Sodium [Protonix] 40 mg PO DAILY 03/23/18 03/23/18 History RX: Bacitracin Oint 1 applic TOPICAL BID #0 applic 03/24/18 Rx RX: Doxycycline [Vibramycin] 100 mg PO BID #20 cap 03/24/18 Rx RX: Nicotine 21Mg/24Hr Patch 1 patch TRANSDERM DAILY #30 patch 03/24/18 Rx [Habitrol] Allergies Allergy/AdvReac Type Severity Reaction Status Date / Time morphine AdvReac Rash/Hives Verified 03/23/18 10:39 Physical Exam Vitals: Vital Signs Temp Pulse Resp BP Pulse Ox 03/31/19 14:22 20 03/31/19 13:22 20 03/31/19 13:16 98.3 F 77 20 149/96 96 Intake and Output 03/31/19 03/31/19 03/31/19 06:59 14:59 22:59 Other: Weight 107.501 kg Constitutional: No acute distress, conversant, pleasant Eyes: Anicteric sclerae, moist conjunctiva, PERRLA ENMT: NC/AT Neck:Supple, FROM, no masses, or JVD Lungs: Clear to auscultation, Clear to percussion, Normal respiratory effort, no accessory muscle use Cardiovascular: Heart regular in rate and rhythm, No murmurs, gallops, or rubs no peripheral edema Abdominal: Soft Nontender, nom distended, no guarding, no rebound or rigidity, Normoactive bowel sounds Skin: Normal temperature, tone, texture, turgor, No induration No subcutaneous nodules, No rash, lesions, No ulcers Extremities:No digital cyanosis No clubbing, Pedal pulses intact and symmetrical Radial pulses intact and symmetrical Normal gait and station, No calf tenderness Psychiatric: Alert and oriented to person, place and time, Appropriate affect Intact judgement Neuro: Muscles Strength 5/5 in all 4 extremities, Sensation to light touch grossly present throughout, Cranial nerves II-XII grossly intact. No focal sensory deficits Results CBC & Chem 7: 03/31/19 13:27 03/31/19 13:27 Labs: Abnormal Lab Results - Last 24 Hours (Table) 03/31/19 Range/Units 13:27 Glucose 110 H (74-99) mg/dL Assessment and Plan Plan: 1. Chest pain in an adult, likely associated with anxiety: Place on telemetry, routine to check cardiac enzymes, obtain a d-dimer, cardiology consultation. 2. Anxiety: Benzos when necessary 3. Hyperlipidemia: Continue atorvastatin 4. Essential hypertension: Continue metoprolol 5. GERD without esophagitis: Continue Protonix Observation DVT prophylaxis: SCDs Disposition: Home in 1-2 days
[2019-03-31] MEDS: oxyCODONE-APAP 10-325MG 1 EACH TAB PO PRN (16:52)
[2019-03-31] MEDS: NITROGLYCERIN OINT 1 INCH/GM PACKET TOPICAL SCH ×2 (19:13→21:44)
[2019-03-31] MEDS: METOPROLOL SUCCINATE (ER) 50 MG TAB.ER.24H PO SCH (20:53)
[2019-03-31] MEDS: ATORVASTATIN 40 MG TAB PO SCH (20:53)
[2019-04-01] MEDS: oxyCODONE-APAP 10-325MG 1 EACH TAB PO PRN ×4 (00:09→19:36)
[2019-04-01] MEDS: NITROGLYCERIN OINT 1 INCH/GM PACKET TOPICAL SCH (04:28)
[2019-04-01 07:43] LABS: HGB 13.7 gm/dL (13.0-17.5); MCHC 33.4 g/dL (31.0-37.0); MCV 89.8 fL (80.0-100.0); Mean Platelet Volume 7.1; Platelet Count 293 k/uL (150-450); RBC 4.57 m/uL (4.30-5.90); RDW 12.6 % (11.5-15.5); WBC 10.6 k/uL (3.8-10.6)
[2019-04-01 07:58] LABS: ALT 12 U/L (4-49); AST 19 U/L (17-59); African American GFR (CKD) >90 (>60 ml/min/1.73 sqM); Albumin 3.8 g/dL (3.5-5.0); Alkaline Phosphatase 86 U/L (38-126); Anion Gap 6 mmol/L; Blood Urea Nitrogen 11 mg/dL (9-20); Carbon Dioxide 28 mmol/L (22-30); Chloride 105 mmol/L (98-107); Cholesterol 94 mg/dL (<200); Glucose 105 mg/dL (74-99); HDL Cholesterol 30 mg/dL (40-60); LDL Cholesterol,Calculated 49 mg/dL (0-99); Non-African American GFR(CKD) >90 (>60 ml/min/1.73 sqM); Potassium 4.3 mmol/L (3.5-5.1); Sodium 139 mmol/L (137-145); Total Bilirubin 0.5 mg/dL (0.2-1.3); Total Protein 6.7 g/dL (6.3-8.2); Triglycerides 76 mg/dL (<150)
[2019-04-01] MEDS ORDERED: ASPIRIN 325 MG TAB PO SCH (09:00)
[2019-04-01] MEDS ORDERED: METOPROLOL SUCCINATE (ER) 50 MG TAB.ER.24H PO SCH (09:00)
[2019-04-01] MEDS: PANTOPRAZOLE 40 MG TABLET PO SCH (09:43)
[2019-04-01] MEDS: ASPIRIN 81 MG PO SCH (09:43)
--- NOTE | 2019-04-01 10:28 | P.CRDCN ---
History of Present Illness History of present illness: This is Jocy Rogel PA-C dictating a consult on this patient The patient was interviewed and examined by me as well as by Dr. Russell Case discussed with Dr. Russell and he agrees with the plan of care IMPRESSION / ASSESSMENT: Frequent episodes of lightheadedness with associated atypical chest discomfort, not relieved by Xanax or nitroglycerin, negative troponins, no ST or T-wave abnormalities suggestive of ischemia on EKG Hypertension History of CAD status post stenting in the mid RCA Dyslipidemia Current smoker PLAN: Check TSH, serum cortisol, serum aldosterone, 24-hour urine metanephrines and cortisol Monitor telemetry for arrhythmias Continue to monitor the patient, if he has another episode we will check a stat EKG and blood pressure at that time Repeat 2-D echo and Doppler studies to assess cardiac structure and function Consider tilt table test HPI Patient is a 58-year-old male with a past medical history of CAD status post stenting who presented with complaints of chest discomfort. 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 For the last year he has had episodes of lightheadedness and elevated blood pressure. These episodes usually start with a "weird feeling in his head" and he becomes lightheaded and axious. Sometimes they become very severe and he feels like" he is going to because he might pass out". Denies syncope or palpitations. He sometimes has associated left-sided chest pressure and diaphoresis. Denies associated shortness of breath. Denies associated nausea but says he is usually hungry when this happens. During these episodes, he checks his blood pressure and is always elevated in the 200s/100s. These episodes seem to occur randomly, they can happen while he is at home or at work, and have even happened while he was driving. They can happen while he was walking, sitting, or standing. He denies any associated triggers her stressors. These symptoms are different from the symptoms he had prior to his stent placement a few years ago. His primary care provider told him these were likely panic attacks and prescribed Xanax. In the past, the Xanax did relieve the symptoms after about 15 minutes. Lately the episodes have been happening daily and they are not relieved by Xanax. He has also tried taking nitroglycerin for the symptoms and that has not helped either. Most recently he had an episode while he was at work. He was walking back from the bathroom when he got a "weird feeling in his head". He had an associated left sided chest pressure. He felt like he "couldn't function" and became very anxious. He sat down at his desk and checked his blood pressure and it was 212/109. He took a Xanax without any relief. He took 3 nitroglycerin without any relief so he decided to come in for further evaluation. Upon presentation, his blood pressure was 149/96 and his heart rate was 77. EKG showed sinus mechanism without any acute ST or T-wave abnormalities. Chest x-ray showed no acute process. Troponins and d-dimer were normal. Patient seen and examined resting in bed. He has not had any further episodes. Denies any chest pain, shortness of breath, dizziness, palpitations, headache. He is a current smoker, denies any recreational drugs or alcohol use ROS: No fevers, chills or rigors, no cough, phlegm or expectoration, no nausea, vomiting or diarrhea, no hematuria, dysuria, no musculoskeletal complaints, no strokes or seizures, no skin lesions. EXAMINATION: Temperature 98.1F, pulse 57, respirations 18, blood pressure 110/67, oxygen saturation 95% on room air Patient seen and examined resting comfortably in bed, in no acute distress Lungs are clear to auscultation bilaterally, no rhonchi wheezing or crackles Heart is regular, normal S1-S2, no murmurs audible No elevated JVD No lower extremity edema Abdomen soft and nontender to palpation REVIEW OF LABS, ECG & MEDICAL DATA WBC 9.2, hemoglobin 14.2, platelets 335, potassium 4.3, BUN 11, creatinine 0.83 LDL 49 Nuclear stress test in March 2018 was negative for reversible ischemia Echocardiogram in March 2018 showed EF 55-60% Past Medical History Past Medical History: Coronary Artery Disease (CAD), Chest Pain / Angina, GERD/Reflux, Hyperlipidemia, Hypertension, Musculoskeletal Disorder Additional Past Medical History / Comment(s): Recent r knee skin infection tx with antibiotic-pt states not getting much better, chronic cervical and lower back pain, bronchitis. History of Any Multi-Drug Resistant Organisms: None Reported Past Surgical History: No Surgical Hx Reported, Heart Catheterization With Stent Additional Past Surgical History / Comment(s): PCI with stent at [facility] April,, pain clinic procedures, cyst lanced on R shoulder - 2016 Past Anesthesia/Blood Transfusion Reactions: No Reported Reaction Date of Last Stent Placement:: April 2017 Smoking Status: Current every day smoker - Past Family History Mother Family Medical History: Coronary Artery Disease (CAD), Diabetes Mellitus Additional Family Medical History / Comment(s): Mother is . She had 3 vessel CABG Sister(s) Family Medical History: Coronary Artery Disease (CAD), Vascular Disorder Additional Family Medical History / Comment(s): Sister had CABG-3 vessel. She at the age of 56yrs which pt believes had to do with her blood thinners and a brain anuerysm. Father Family Medical History: Myocardial Infarction (VA) Additional Family Medical History / Comment(s): Father of a massive VA at the age of 65yrs. Medications and Allergies Home Medications Medication Instructions Recorded Confirmed Type oxyCODONE-APAP 10-325MG [Percocet 1 tab PO QID 08/24/13 03/31/19 History 10-325 mg] Aspirin EC [Ecotrin Low Dose] 81 mg PO DAILY 03/23/18 03/31/19 History Atorvastatin [Lipitor] 40 mg PO AC-SUPPER 03/23/18 03/31/19 History Metoprolol Succinate [Toprol Xl] 50 mg PO AC-SUPPER 03/23/18 03/31/19 History ALPRAZolam [Xanax] 0.5 mg PO DAILY PRN 03/31/19 03/31/19 History Albuterol Inhaler [Ventolin Hfa 2 puff INHALATION RT-Q4H PRN 03/31/19 03/31/19 History Inhaler] Nitroglycerin Sl Tabs [Nitrostat] 0.4 mg PO Q5M PRN 03/31/19 03/31/19 History Allergies Allergy/AdvReac Type Severity Reaction Status Date / Time morphine AdvReac Rash/Hives Verified 03/31/19 20:31 Physical Exam Vitals: Vital Signs Temp Pulse Pulse Resp BP BP Pulse Ox 04/01/19 08:00 98.1 F 57 L 18 110/67 95 04/01/19 04:00 18 04/01/19 03:58 97.5 F L 60 18 116/66 96 04/01/19 00:00 16 03/31/19 23:17 97.8 F 63 16 123/63 97 03/31/19 20:00 18 03/31/19 18:47 97.5 F L 57 L 18 138/71 97 03/31/19 18:00 84 20 133/84 03/31/19 17:30 59 L 20 96 03/31/19 17:00 57 L 18 96 03/31/19 16:30 54 L 16 03/31/19 16:01 53 L 16 03/31/19 16:00 20 03/31/19 15:30 57 L 16 03/31/19 15:00 58 L 10 L 03/31/19 14:30 62 12 125/92 03/31/19 14:22 20 03/31/19 14:00 70 18 108/79 96 03/31/19 13:30 70 12 149/96 94 L 03/31/19 13:22 20 03/31/19 13:18 92 L 03/31/19 13:16 98.3 F 77 20 149/96 96 Intake and Output 03/31/19 04/01/19 04/01/19 22:59 06:59 14:59 Other: # Voids 1 1 Weight 107.501 kg Results 04/01/19 07:20 04/01/19 07:20 Cardiac Enzymes 03/31/19 03/31/19 03/31/19 Range/Units 13:27 13:27 18:55 AST 24 (17-59) U/L Troponin I <0.012 <0.012 (0.000-0.034) ng/mL 04/01/19 04/01/19 Range/Units 01:39 07:20 AST 19 (17-59) U/L Troponin I <0.012 (0.000-0.034) ng/mL Coagulation 03/31/19 Range/Units 13:27 PT 10.0 (9.0-12.0) sec APTT 24.8 (22.0-30.0) sec Lipids 04/01/19 Range/Units 07:20 Triglycerides 76 (<150) mg/dL Cholesterol 94 (<200) mg/dL HDL Cholesterol 30 L (40-60) mg/dL CBC 03/31/19 04/01/19 Range/Units 13:27 07:20 WBC 9.2 10.6 (3.8-10.6) k/uL RBC 4.61 4.57 (4.30-5.90) m/uL Hgb 14.2 13.7 (13.0-17.5) gm/dL Hct 40.6 41.0 (39.0-53.0) % Plt Count 335 293 (150-450) k/uL Comprehensive Metabolic Panel 03/31/19 04/01/19 Range/Units 13: 07:20 Sodium 137 139 (137-145) mmol/L Potassium 4.3 4.3 (3.5-5.1) mmol/L Chloride 102 105 (98-107) mmol/L Carbon Dioxide 27 28 (22-30) mmol/L BUN 12 11 (9-20) mg/dL Creatinine 0.85 0.83 (0.66-1.25) mg/dL Glucose 110 H 105 H (74-99) mg/dL Calcium 9.3 9.0 (8.4-10.2) mg/dL AST 24 19 (17-59) U/L ALT 12 12 (4-49) U/L Alkaline Phosphatase 76 86 (38-126) U/L Total Protein 7.1 6.7 (6.3-8.2) g/dL Albumin 4.2 3.8 (3.5-5.0) g/dL Current Medications Generic Name Dose Route Start Last Admin Trade Name Freq PRN Reason Stop Dose Admin Aspirin 81 mg 04/01/19 09:00 04/01/19 09:43 Aspirin PO 81 mg DAILY RUPESH Administration Atorvastatin Calcium 40 mg 03/31/19 21:00 03/31/19 20:53 Lipitor PO 40 mg HS RUPESH Administration Metoprolol Succinate 50 mg 03/31/19 21:00 03/31/19 20:53 Toprol Xl PO 50 mg AC-SUPPER RUPESH Administration Nitroglycerin 0.4 mg 03/31/19 15:07 Nitrostat SUBLINGUAL Q5M PRN Chest Pain Oxycodone/Acetaminophen 1 each 03/31/19 15:40 04/01/19 07:13 Percocet 10-325 PO 1 each Q6HR PRN Administration Pain Pantoprazole Sodium 40 mg 04/01/19 07:30 04/01/19 09:43 Protonix PO 40 mg AC-BRKFST RUPESH Administration Intake and Output 03/31/19 04/01/19 04/01/19 22:59 06:59 14:59 Other: # Voids 1 1 Weight 107.501 kg 04/01/19 07:20 04/01/19 07:20
--- NOTE | 2019-04-01 10:49 | P.PN ---
Subjective Progress Note Date: 04/01/19 Principal diagnosis: chest pain Patient is currently without any symptoms of chest pain or shortness of breath. He described frequent episodes of palpitations, lightheadedness associated with chest pain left-sided and shortness of breath. These episodes have been occurring once a day at bedtime. These episodes are not necessarily exertional. Objective - Vital Signs Vital signs: Vital Signs Temp 98.1 F 04/01/19 08:00 Pulse 57 L 04/01/19 08:00 Resp 18 04/01/19 08:00 BP 110/67 04/01/19 08:00 Pulse Ox 95 04/01/19 08:00 Intake & Output 03/31/19 04/01/19 04/01/19 18:59 06:59 18:59 Weight 107.501 kg 107.501 kg Other: # Voids 1 - Exam Constitutional: No acute distress, conversant, pleasant Eyes:Anicteric sclerae, moist conjunctiva, no lid-lag, PERRLA, ENMT: Oropharynx clear, no erythema, exudates Neck: Supple, FROM, no masses, or JVD, No carotid bruits, No thyromegaly Lungs: Clear to auscultation, Clear to percussion, Normal respiratory effort, no accessory muscle use Cardiovascular: Heart regular in rate and rhythm, No murmurs, gallops, or rubs, No peripheral edema Abdominal: Soft, Nontender, no guarding, rebound or rigidity, Normoactive bowel sounds, No hepatomegaly, No splenomegaly, No palpable mass Skin: Normal temperature, tone, texture, turgor, no induration, No subcutaneous nodules, No rash, lesions, No ulcers Extremities: No digital cyanosis, No clubbing, Pedal pulses intact and symmetrical, Radial pulses intact and symmetrical, No calf tenderness Psychiatric: Alert and oriented to person, place and time, appropriate affect, intact judgement Neuro: Muscles Strength 5/5 in all 4 extremities, Sensation to light touch grossly present throughout, Cranial nerves II-XII grossly intact, no focal senso ry deficits - Labs CBC & Chem 7: 04/01/19 07:20 04/01/19 07:20 Labs: Abnormal Lab Results - Last 24 Hours (Table) 03/31/19 04/01/19 Range/Units 13:27 07:20 Glucose 110 H 105 H (74-99) mg/dL HDL Cholesterol 30 L (40-60) mg/dL Assessment and Plan Plan: Chest pain and palpitations Check TSH, serum cortisol, serum aldosterone, 24-hour urine metanephrines and cortisol Monitor telemetry for arrhythmias Discussed with cardiology 2-D echo and Doppler studies to assess cardiac structure and function Consider tilt table test on Wednesday GERD/Reflux, Hyperlipidemia, Hypertension Currently stable, resume meds
--- NOTE | 2019-04-01 13:01 | ECHOF ---
Referral Reason:cp MEASUREMENTS -------- HEIGHT: 180.3 cm WEIGHT: 107.5 kg BP: 110/67 IVSd: 1.3 cm (0.6 - 1.1) LVIDd: 4.8 cm (3.9 - 5.3) LVPWd: 1.4 cm (0.6 - 1.1) IVSs: 1.6 cm LVIDs: 3.0 cm LVPWs: 2.0 cm LA Diam: 3.9 cm (2.7 - 3.8) RVIDd: 3.7 cm (< 3.3) LAESV Index (A-L): 27.02 ml/m Ao Diam: 3.7 cm (2.0 - 3.7) AV Cusp: 2.9 cm (1.5 - 2.6) MV E Lucio: 0.97 m/s MV DecT: 247 ms MV A Lucio: 0.85 m/s MV E/A Ratio: 1.14 RAP: 5.00 mmHg RVSP: 21.49 mmHg MV EF SLOPE: 73.83 mm/s (70 - 150) MV EXCURSION: 19.78 mm (> 18.000) FINDINGS -------- Sinus rhythm. This was a technically adequate study. The left ventricular size is normal. There is moderate concentric left ventricular hypertrophy. O verall left ventricular systolic function is normal with, an EF between 55 - 60 %. The right ventricle is mildly enlarged. Normal LA size by volume 22+/-6 ml/m2. The right atrium is normal in size. Interatrial and interventricular septum intact. The aortic valve is trileaflet and appears structurally normal. There is trace to mild mitral regurgitation. Trace tricuspid regurgitation present. Right ventricular systolic pressure is normal at < 35 mmHg. There is no pulmonic regurgitation present. The aortic root size is normal. Normal inferior vena cava with normal inspiratory collapse consistent with estimated right atrial pre ssure of 5 mmHg. There is no pericardial effusion. CONCLUSIONS -------- 1. Sinus rhythm. 2. This was a technically adequate study. 3. The left ventricular size is normal. 4. There is moderate concentric left ventricular hypertrophy. 5. Overall left ventricular systolic function is normal with, an EF between 55 - 60 %. 6. The right ventricle is mildly enlarged. 7. Normal LA size by volume 22+/-6 ml/m2. 8. The right atrium is normal in size. 9. Interatrial and interventricular septum intact. 10. The aortic valve is trileaflet and appears structurally normal. 11. There is trace to mild mitral regurgitation. 12. Trace tricuspid regurgitation present. 13. Right ventricular systolic pressure is normal at < 35 mmHg. 14. There is no pulmonic regurgitation present. 15. The aortic root size is normal. 16. Normal inferior vena cava with normal inspiratory collapse consistent with estimated right atrial pressure of 5 mmHg. 17. There is no pericardial effusion. TRAFFIC CONTROL TECHNICIAN: Kimberly Gonzales RDCS
[2019-04-01 16:34] VITALS: RESP 18
[2019-04-01] MEDS: METOPROLOL SUCCINATE (ER) 50 MG TAB.ER.24H PO SCH (17:43)
[2019-04-01] MEDS: ATORVASTATIN 40 MG TAB PO SCH (19:36)
[2019-04-02] MEDS: oxyCODONE-APAP 10-325MG 1 EACH TAB PO PRN ×5 (01:43→23:00)
[2019-04-02] MEDS: ASPIRIN 81 MG PO SCH (07:33)
[2019-04-02] MEDS: PANTOPRAZOLE 40 MG TABLET PO SCH (07:33)
[2019-04-02] MEDS ORDERED: COSYNTROPIN 0.25 MG VIAL IVP ONE (08:00)
--- NOTE | 2019-04-02 10:06 | P.PN ---
Subjective Progress Note Date: 04/02/19 Principal diagnosis: chest pain Patient had an episode of left-sided chest and shoulder pain last night, described as not as severe as on he had at home. Telemetry did not show a nything at that time. No dizziness or shortness of breath. No palpitation. Objective - Vital Signs Vital signs: Vital Signs Temp 98.5 F 04/02/19 07:15 Pulse 61 04/02/19 08:00 Resp 18 04/02/19 08:00 BP 121/79 04/02/19 07:15 Pulse Ox 95 04/02/19 07:15 Intake & Output 04/01/19 04/02/19 04/02/19 18:59 06:59 18:59 Intake Total 520 Balance 520 Intake: Oral 520 Other: Voiding Method Toilet # Voids 2 1 - Exam Constitutional: No acute distress, conversant, pleasant Eyes:Anicteric sclerae, moist conjunctiva, no lid-lag, PERRLA, ENMT: Oropharynx clear, no erythema, exudates Neck: Supple, FROM, no masses, or JVD, No carotid bruits, No thyromegaly Lungs: Clear to auscultation, Clear to percussion, Normal respiratory effort, no accessory muscle use Cardiovascular: Heart regular in rate and rhythm, No murmurs, gallops, or rubs, No peripheral edema Abdominal: Soft, Nontender, no guarding, rebound or rigidity, Normoactive bowel sounds, No hepatomegaly, No splenomegaly, No palpable mass Skin: Normal temperature, tone, texture, turgor, no induration, No subcutaneous nodules, No rash, lesions, No ulcers Extremities: No digital cyanosis, No clubbing, Pedal pulses intact and symmetrical, Radial pulses intact and symmetrical, No calf tenderness Psychiatric: Alert and oriented to person, place and time, appropriate affect, intact judgement Neuro: Muscles Strength 5/5 in all 4 extremities, Sensation to light touch grossly present throughout, Cranial nerves II-XII grossly intact, no focal sensory deficits - Labs CBC & Chem 7: 04/01/19 07:20 04/01/19 07:20 Assessment and Plan Plan: Chest pain and palpitations TSH ok Serum cortisol low--performing ACTH stim test today, discussed with RN Serum aldosterone, 24-hour urine metanephrines No arrhythmias on tele so far, continue to monitor 2-D echo, showing normal ef but concentric LVH present Cardiology considering tilt table test on Wednesday Discussed with cardiology GERD/Reflux, Hyperlipidemia, Hypertension Currently stable, resume meds
--- NOTE | 2019-04-02 11:08 | P.PN ---
Subjective This is Jocy Rogel PA-C dictating a progress note on this patient The patient was interviewed and examined by me as well as by Dr. Russell Case discussed with Dr. Russell and he agrees with the plan of care IMPRESSION / ASSESSMENT: Frequent episodes of lightheadedness with associated atypical chest discomfort, not relieved by Xanax or nitroglycerin, negative troponins, no ST or T-wave abnormalities suggestive of ischemia on EKG Hypertension, blood pressure has been fairly well-controlled History of CAD status post stenting in the mid RCA Dyslipidemia Current smoker PLAN: Await results of urine metanephrines and cortisol Continue to monitor telemetry Recommend tilt table test and exercise stress echocardiogram If those results are normal, consider loop monitor implantation HPI/interval history Patient is a 58-year-old male with a history of CAD status post stenting who presented with complaints of chest discomfort and lightheadedness. Troponins were negative and EKG did not show any acute abnormalities. He did have another episode of chest discomfort overnight which was different from his symptoms of lightheadedness. EKG at that time again did not show any abnormalities. His blood pressure at that time was within normal limits. The pain resolved with one nitroglycerin as well as his pain medications. Patient seen and examined resting comfortably in bed. Has not had any episodes of lightheadedness. Denie s any palpitations, dizziness or syncope. No shortness of breath. EXAMINATION Temperature 98.5F, pulse 61 respirations 18 blood pressure 121/79 oxygen saturations 95% on room air Patient seen and examined resting comfortably in bed, in no acute distress Lungs are clear to auscultation bilaterally, no rhonchi wheezing or crackles Heart is regular, normal S1-S2, no murmurs audible No elevated JVD No lower extremity edema REVIEW OF LABS, ECG WBC 10.6, hemoglobin 13.7, platelets 293, potassium 4.3, BUN 11, creatinine 0.83 TSH 0.573 echocardiogram shows EF 55-60%, moderate concentric hypertrophy, no significant valvular abnormalities Objective - Vital Signs Vital signs: Vital Signs Temp 98.5 F 04/02/19 07:15 Pulse 61 04/02/19 08:00 Resp 18 04/02/19 08:00 BP 121/79 04/02/19 07:15 Pulse Ox 95 04/02/19 07:15 Intake & Output 04/01/19 04/02/19 04/02/19 18:59 06:59 18:59 Intake Total 520 Balance 520 Intake: Oral 520 Other: Voiding Method Toilet # Voids 2 1 - Labs CBC & Chem 7: 04/01/19 07:20 04/01/19 07:20
[2019-04-02] MEDS: METOPROLOL SUCCINATE (ER) 50 MG TAB.ER.24H PO SCH (17:12)
[2019-04-02] MEDS: ATORVASTATIN 40 MG TAB PO SCH (20:03)
[2019-04-03] MEDS: oxyCODONE-APAP 10-325MG 1 EACH TAB PO PRN ×3 (05:11→21:30)
--- NOTE | 2019-04-03 09:57 | PN ---
PROGRESS NOTE Mr. Larios is a 58-year-old male with a history of coronary artery disease, status post stenting in April 2017. 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 In the hospital on the monitor, he is in sinus mechanism with no evidence of malignant arrhythmia. Serum cortisol level was obtained and showed no abnormalities. The patient is anxious to go home today. He denies any dizziness or palpitation. He denies any nausea. He has EKG showed no acute changes. He continues to be on aspirin once a day, Lipitor 40 mg daily, metoprolol succinate 50 mg daily, Protonix 40 mg daily. PHYSICAL EXAMINATION: Blood pressure 108/60 with the heart rate in the 60s. LUNGS: Clear. HEART: Regular rate and rhythm. S1, S2. No S3. No S4. No rub. ABDOMEN: Soft, nontender. EXTREMITIES: No edema. Echocardiogram revealed no acute ST-segment changes. IMPRESSION: 1. Symptoms of dizziness and lightheadedness with no clear evidence to suggest acute ischemic event. 2. History of coronary artery disease, status post percutaneous revascularization that was done in April 2017. Patient had a stress test a year ago that showed no evidence of inducible ischemia. 3. Hypertension. 4. Hyperlipidemia. RECOMMENDATION: From the cardiac standpoint, the patient's activity will be increased. I would expect he should be able to be discharged home and follow up with his primary ship painter helper. DEMOND / LIVIA: [id number] /
[2019-04-03] MEDS ORDERED: SODIUM CHLORIDE 0.9% 500 ML 500 ML IV ONE (14:09)
[2019-04-03] MEDS: PANTOPRAZOLE 40 MG TABLET PO SCH (15:23)
[2019-04-03] MEDS: ASPIRIN 81 MG PO SCH (15:24)
--- NOTE | 2019-04-03 17:20 | P.PN ---
Subjective Progress Note Date: 04/03/19 Principal diagnosis: Chest pain Patient was seen and examined. No acute events overnight. Patient denies any chest pain, shortness of breath or palpitations. He does report fluctuating blood pressures that are usually resolved after taking Xanax. No nausea or vomiting. No fever or chills. Objective - Vital Signs Vital signs: Vital Signs Temp 98 F 04/03/19 15:21 Pulse 54 L 04/03/19 15:21 Resp 18 04/03/19 15:21 BP 153/91 04/03/19 15:21 Pulse Ox 98 04/03/19 15:21 Intake & Output 04/02/19 04/03/19 04/03/19 18:59 06:59 18:59 Intake Total 2180 240 20 Balance 2180 240 20 Intake: IV 20 Oral 1180 240 Other 1000 Other: Voiding Method Toilet Toilet Toilet # Voids 1 - Exam General: [non toxic], [no distress], [appears at stated age] Derm: [warm], [dry] Head: [atraumatic], [normocephalic], [symmetric] Eyes: [EOMI], [no lid lag], [anicteric sclera] Mouth: [no lip lesion], [mucus membranes moist] Cardiovascular: [S1S2 reg], [no murmur], [positive posterior tibial pulse bilateral], Lungs: [CTA bilateral], [no rhonchi, no rales] , [no accessory muscle use] Abdominal: [soft], [ nontender to palpation], [no guarding], [no appreciable organomegaly] Ext: [no gross muscle atrophy], [no edema], [no contractures] Neuro: [no focal neuro deficits] Psych: [Alert], [oriented], [appropriate affect] - Labs CBC & Chem 7: 04/01/19 07:20 04/01/19 07:20 Assessment and Plan Assessment: Chest pain rule out acute coronary syndrome with history of CAD post stenting mid RCA Episodes of fluctuating blood pressure with lightheadedness and history of hypertension Dyslipidemia Smoker Obesity Troponins less than 0.0123 with EKG showing normal sinus rhythm. ACS ruled out. Plans: Telemetry monitoring. Stress test tomorrow. Continue aspirin and Lipitor. Continue beta avril. Follow cardiology recommendations. BP 153/91. Blood pressure has been stable while inpatient. TSH negative. A ldosterone within normal limits. Cortisol within normal limits. ACTH stimulation test seems appropriate. Tilt table test negative. Plans: Continue metoprolol. Monitor vitals, adjust medications as necessary. Follow cardiology recommendations. Plans: Continue Lipitor. Plans: Patient advised to quit. Plans: Structured weight loss program. [Patient admitted for chest pain. ACS ruled out. Describes episodes of fluctuating blood pressure with lightheadedness. Stress test pending. Likely DC tomorrow pending cardiology clearance.]
[2019-04-03] MEDS: METOPROLOL SUCCINATE (ER) 50 MG TAB.ER.24H PO SCH (17:56)
--- NOTE | 2019-04-03 19:26 | P.PCN ---
Preoperative Diagnosis: Diagnosis Recurrent dizzy spells of palpitations Twelve-lead ECG shows sinus mechanism normal GA narrow QRS Tilt table test per protocol Baseline blood pressure 167/84 mmHg Baseline heart rate 53 beats a minute patient was tilted upright at an angle of 70 per protocol There was no evidence for neurocardiogenic syncope No evidence for dysautonomia Impression Normal 12-lead ECG No evidence for neurocardiogenic syncope Plan Exercise stress test tomorrow Patient symptoms are triggered sometimes with exercise
[2019-04-03] MEDS: ATORVASTATIN 40 MG TAB PO SCH (20:09)
[2019-04-04] MEDS: oxyCODONE-APAP 10-325MG 1 EACH TAB PO PRN ×2 (03:24→10:24)
--- NOTE | 2019-04-04 10:02 | PN ---
PROGRESS NOTE Mr. Larios is a 58-year-old male with a known history of coronary artery disease who presented with an episode of palpitation and dizziness, not associated with any chest discomfort. On the monitor, he continues to be in sinus mechanism. He underwent a tilt-table test yesterday that was unremarkable and he had an echocardiogram revealed a preserved left ventricular size and systolic function. He is scheduled to undergo a stress test today. He has been ambulating without difficulty. Continues on aspirin once a day, Lipitor 40 mg daily, metoprolol succinate 50 mg daily, and Protonix. PHYSICAL EXAMINATION: Blood pressure 125/60 with a heart rate in the 60s. LUNGS: Clear. HEART: Regular rate and rhythm, S1, S2. No S3. No rub. ABDOMEN: Soft, nontender. EXTREMITIES: No edema. IMPRESSION: 1. Symptoms of sudden dizziness and palpitation. No clear abnormalities noted so far. His cortisol level has been normal. 2. History of coronary artery disease status post percutaneous revascularization, stable. 3. Hypertension. 4. Hyperlipidemia. The patient will undergo stress test today. If there is no evidence of inducible ischemia, then no further cardiac workup will be needed. We will follow with his primary electro mechanical technologist. MMODL / IJN: [id number] /
[2019-04-04] MEDS: PANTOPRAZOLE 40 MG TABLET PO SCH (10:23)
[2019-04-04] MEDS: ASPIRIN 81 MG PO SCH (10:24)
--- NOTE | 2019-04-04 11:41 | ECHOS ---
STRESS ECHOCARDIOGRAM INDICATIONS: Chest pain. BASELINE HEART RATE: 50 BASELINE BLOOD PRESSURE: 111/45 MAXIMUM HEART RATE: 146 MAXIMUM BLOOD PRESSURE: 204/63 85% MPHR: 139 100% MPHR: 163 METS: 7.1 MAXIMUM STAGE REACHED: 2 TOTAL EXERCISE TIME: 5:57 CLINICAL INFORMATION: Baseline rhythm is sinus mechanism, rate 50, normal axis and intervals. Normal echocardiogram. Baseline blood pressure 111/45 mmHg. Patient exercised on Vince protocol for 5 minutes, 57 seconds reaching a peak rate 146 beats per minute which is equal to 89% maximum predicted heart rate. Peak blood pressure 204/63 mmHg. Test was terminated due to fatigue. There was no chest pain. Electrocardiograph monitoring revealed no evidence of diagnostic ischemic ST deviation. FINDINGS: Baseline echocardiogram revealed normal wall motion. At peak exercise, there was normal wall motion augmentation with no hypokinesis or dyskinesis. CONCLUSION: 1. Average exercise tolerance with normal cardiac response to exercise. 2. Normal stress echocardiogram with no evidence of stress-induced ischemia. MMODL / IJN: [id number] /
[2019-04-04 11:48] VITALS: BP 117/76; PULSE 64; TEMP 98.2
--- NOTE | 2019-04-04 12:55 | P.DS ---
Providers Date of admission: 04/02/19 15:06 Expected date of discharge: 04/04/19 Attending physician: Rosana La MD Consults: 03/31/19 15:08 Consult Physician Urgent Consulting Provider: [facility] Consult Reason/Comments: Chest pain Do you want consulting provider notified?: Yes Primary care physician: Rodrigo Calvo [facility] Course: Patient is a 58-year-old male with PMH of CAD with stent placement, hypertension, dyslipidemia that initially presented to the ED for chest pain. He reported his chest pain to be worsened with increased anxiety. He had also reports of fluctuating blood pressures measured at home along with lightheadedness at times. He was admitted for further workup and evaluation. With regard to his chest pain, troponin was less than 0.0123 with EKG showing normal sinus rhythm. Acute coronary syndrome was ruled out. Patient underwent stress test which was negative as well. He was continued on aspirin, Lipitor and beta avril. Patient was noted to have stable blood pressures during his hospitalization. TSH was negative. Aldosterone was within normal limits. Cortisol was within normal limits. ACTH stimulation test was performed and was within normal limits. Tilt table test was performed which was negative. He was continued on his home medication of metoprolol. Patient was seen and examined. No acute events overnight. Patient denies any chest pain, shortness breath or palpitations. No nausea or vomiting. No fever or chills. Blood pressure has been stable throughout his hospitalization. General: [non toxic], [no distress], [appears at stated age] Derm: [warm], [dry] Head: [atraumatic], [normocephalic], [symmetric] Eyes: [EOMI], [no lid lag], [anicteric sclera] Mouth: [no lip lesion], [mucus membranes moist] Cardiovascular: [S1S2 reg], [no murmur], [positive posterior tibial pulse bilateral], Lungs: [CTA bilateral], [no rhonchi, no rales] , [no accessory muscle use] Abdominal: [soft], [ nontender to palpation], [no guarding], [no appreciable organomegaly] Ext: [no gross muscle atrophy], [no edema], [no contractures] Neuro: [no focal neuro deficits] Psych: [Alert], [oriented], [appropriate affect] Chest pain rule out acute coronary syndrome with history of CAD post stenting mid RCA Episodes of fluctuating blood pressure with lightheadedness and history of hypertension Dyslipidemia Smoker Obesity Troponins less than 0.0123 with EKG showing normal sinus rhythm. ACS ruled out. Stress test negative. Plans: Telemetry monitoring. Continue aspirin and Lipitor. Continue beta avril. Follow cardiology recommendations. BP 117/76. Blood pressure has been stable while inpatient. TSH negative. Aldosterone within normal limits. Cortisol within normal limits. ACTH stimulation test seems appropriate. Tilt table test negative. Plans: Continue metoprolol. Monitor vitals, adjust medications as necessary. Follow cardiology recommendations. Plans: Continue Lipitor. Plans: Patient advised to quit. Plans: Structured weight loss program. [Patient admitted for chest pain. ACS ruled out. Describes episodes of fluctuating blood pressure with lightheadedness, blood pressure has been stable during his hospitalization. Stress test negative. DC today if cardiology cleared .] Pertinent Studies: Chest x-ray, echocardiogram, Stress test Patient Condition at Discharge: Stable Plan - Discharge Summary New Discharge Prescriptions: Continue oxyCODONE-APAP 10-325MG [Percocet 10-325 mg] 1 tab PO QID Atorvastatin [Lipitor] 40 mg PO AC-SUPPER Aspirin EC [Ecotrin Low Dose] 81 mg PO DAILY Metoprolol Succinate [Toprol Xl] 50 mg PO AC-SUPPER Nitroglycerin Sl Tabs [Nitrostat] 0.4 mg PO Q5M PRN PRN Reason: Chest Pain Albuterol Inhaler [Ventolin Hfa Inhaler] 2 puff INHALATION RT-Q4H PRN PRN Reason: Shortness Of Breath ALPRAZolam [Xanax] 0.5 mg PO DAILY PRN PRN Reason: Anxiety Discharge Medication List oxyCODONE-APAP 10-325MG [Percocet 10-325 mg] 1 tab PO QID 08/24/13 [History] Aspirin EC [Ecotrin Low Dose] 81 mg PO DAILY 03/23/18 [History] Atorvastatin [Lipitor] 40 mg PO AC-SUPPER 03/23/18 [History] Metoprolol Succinate [Toprol Xl] 50 mg PO AC-SUPPER 03/23/18 [History] ALPRAZolam [Xanax] 0.5 mg PO DAILY PRN 03/31/19 [History] Albuterol Inhaler [Ventolin Hfa Inhaler] 2 puff INHALATION RT-Q4H PRN 03/31/19 [History] Nitroglycerin Sl Tabs [Nitrostat] 0.4 mg PO Q5M PRN 03/31/19 [History] Follow up Appointment(s)/Referral(s): Mansoor Russell MD [STAFF PHYSICIAN] - 04/06/19 9:45 am Rodrigo Bonilla MD [Primary Care Provider] - 1-2 days Patient Instructions/Handouts: Cardiac Ablation (DC) Activity/Diet/Wound Care/Special Instructions: Diet: Cardiac, low-salt Follow-up PCP within 3 days of discharge. Follow-up cardiology with the appointment given to. Take all medications as advised. Discharge Disposition: HOME SELF-CARE
[2019-04-04 15:37] LABS: Cortisol, Urine Free by LC-MS 8.8 ug/L; Free Cortisol 24 Hour,Urine 36.1 ug/day (<60.0)
[2019-04-06 10:24] LABS: Metanephrines 24 Hour,Urine 205 ug/day (52-341); Normetanephrine 24 Hour,Urine 406 ug/day (88-444); Total Metanephrines 24 Hour,Ur 611 ug/day (140-785)
== END 2019-04-04 13:46 | disposition home or self-care (01) | DRG 149 ==
LOC: EC 13:13 → 1SOBS 15:08 → OBSVTOIN 04-02 15:06
PROVIDERS: ADMIT Internal Medicine; ATTEND Internal Medicine
PROC: 4A03XB1 Measurement of Arterial Pressure, Peripheral, External Approach (ICD-10-PCS; 2019-04-03)
PROC: 4A02XFZ Measurement of Cardiac Rhythm, External Approach (ICD-10-PCS; principal; 2019-04-03 14:09)
DX: R42 Dizziness and giddiness (principal); R07.89 Other chest pain; I25.10 Atherosclerotic heart disease of native coronary artery without angina pectoris; R00.2 Palpitations; E66.9 Obesity, unspecified; E78.5 Hyperlipidemia, unspecified; F17.200 Nicotine dependence, unspecified, uncomplicated; F41.9 Anxiety disorder, unspecified; I10 Essential (primary) hypertension; I99.8 Other disorder of circulatory system; K21.9 Gastro-esophageal reflux disease without esophagitis; M25.512 Pain in left shoulder; M25.519 Pain in unspecified shoulder; R06.02 Shortness of breath; G89.29 Other chronic pain; M54.2 Cervicalgia; M54.5 Low back pain; Z79.82 Long term (current) use of aspirin; Z79.899 Other long term (current) drug therapy; Z95.5 Presence of coronary angioplasty implant and graft; Z88.5 Allergy status to narcotic agent; Z68.33 Body mass index [BMI] 33.0-33.9, adult; Z82.49 Family history of ischemic heart disease and other diseases of the circulatory system; Z83.3 Family history of diabetes mellitus
CPT/HCPCS: 36415; 71046; 80053; 80061; 82088; 82530; 82533; 83735; 83835; 84443; 84484; 85025; 85027; 85379; 85610; 85730; 93005; 93306; 93351; 93660; 99285

== ENCOUNTER 2019-06-26 10:54 | Emergency (ER) | payer OTHER ==
[2019-06-26 11:05] VITALS: RESP 18
[2019-06-26 11:31] LABS: Basophils # (A) 0.1 k/uL (0-0.2); Basophils % (A) 1 %; Eosinophils # (A) 0.3 k/uL (0-0.7); Eosinophils % (A) 5 %; HGB 12.9 gm/dL (13.0-17.5); Lymphocytes # (A) 2.1 k/uL (1.0-4.8); Lymphocytes % (A) 33 %; MCH 30.1 pg (25.0-35.0); MCHC 34.8 g/dL (31.0-37.0); MCV 86.6 fL (80.0-100.0); Mean Platelet Volume 7.3; Monocytes # (A) 0.5 k/uL (0-1.0); Monocytes % (A) 8 %; Neutrophils # (A) 3.2 k/uL (1.3-7.7); Neutrophils % (A) 50 %; Platelet Count 239 k/uL (150-450); RBC 4.28 m/uL (4.30-5.90); RDW 12.9 % (11.5-15.5); WBC 6.3 k/uL (3.8-10.6)
[2019-06-26 11:33] LABS: ALT 15 U/L (4-49); AST 23 U/L (17-59); African American GFR (CKD) >90 (>60 ml/min/1.73 sqM); Albumin 3.9 g/dL (3.5-5.0); Alkaline Phosphatase 101 U/L (38-126); Anion Gap 6 mmol/L; Blood Urea Nitrogen 9 mg/dL (9-20); Calcium 8.5 mg/dL (8.4-10.2); Carbon Dioxide 26 mmol/L (22-30); Chloride 107 mmol/L (98-107); Glucose 92 mg/dL (74-99); Magnesium 1.9 mg/dL (1.6-2.3); Non-African American GFR(CKD) >90 (>60 ml/min/1.73 sqM); Potassium 4.2 mmol/L (3.5-5.1); Sodium 139 mmol/L (137-145); Total Bilirubin 0.3 mg/dL (0.2-1.3); Total Protein 6.9 g/dL (6.3-8.2)
--- NOTE | 2019-06-26 11:36 | ED ---
General Adult HPI - General Chief complaint: Chest Pain Stated complaint: Heart issues Time Seen by Provider: 06/26/19 11:04 Source: patient, RN notes reviewed, old records reviewed Mode of arrival: EMS Limitations: no limitations - History of Present Illness Initial comments: 58-year-old male presents for evaluation of chest pain. Patient reports that he began feeling quite anxious, checked his blood pressure and noted that his blood pressure was significantly elevated. He began experiencing bilateral upper back pain which was a squeezing pressure sensation. He has known history of coronary artery disease. He was seen at this institution within the past several months and had a negative workup according to the patient including stress testing. He does have 1 stent which was placed approximately 2 years ago. He has history of hypertension and was a previous smoker. He denies vomiting. Denies diaphoresis. Denies central substernal chest pain. His symptoms have resolved with administration of aspirin, and Xanax. - Related Data Home Medications Medication Instructions Recorded Confirmed oxyCODONE-APAP 10-325MG [Percocet 1 tab PO QID 08/24/13 06/26/19 10-325 mg] Aspirin EC [Ecotrin Low Dose] 81 mg PO DAILY 03/23/18 06/26/19 Atorvastatin [Lipitor] 40 mg PO AC-SUPPER 03/23/18 06/26/19 Metoprolol Succinate [Toprol Xl] 50 mg PO AC-SUPPER 03/23/18 06/26/19 ALPRAZolam [Xanax] 0.5 mg PO BID PRN 03/31/19 06/26/19 Albuterol Inhaler [Ventolin Hfa 2 puff INHALATION RT-Q4H PRN 03/31/19 06/26/19 Inhaler] Nitroglycerin Sl Tabs [Nitrostat] 0.4 mg PO Q5M PRN 03/31/19 06/26/19 Lansoprazole [Prevacid] 15 mg PO DAILY 06/26/19 06/26/19 Allergies Allergy/AdvReac Type Severity Reaction Status Date / Time morphine AdvReac Rash/Hives Verified 06/26/19 11:49 Review of Systems ROS Statement: Those systems with pertinent positive or pertinent negative responses have been documented in the HPI. ROS Other: All systems not noted in ROS Statement are negative. Past Medical History Past Medical History: Coronary Artery Disease (CAD), Chest Pain / Angina, GERD/Reflux, Hyperlipidemia, Hypertension, Musculoskeletal Disorder Additional Past Medical History / Comment(s): Recent r knee skin infection tx with antibiotic-pt states not getting much better, chronic cervical and lower back pain, bronchitis. History of Any Multi-Drug Resistant Organisms: None Reported Past Surgical History: No Surgical Hx Reported, Heart Catheterization With Stent Additional Past Surgical History / Comment(s): PCI with stent at [facility] April,, pain clinic procedures, cyst lanced on R shoulder - 2016 Past Anesthesia/Blood Transfusion Reactions: No Reported Reaction Date of Last Stent Placement:: April 2017 Past Psychological History: No Psychological Hx Reported Smoking Status: Current every day smoker - Past Family History Mother Family Medical History: Coronary Artery Disease (CAD), Diabetes Mellitus Additional Family Medical History / Comment(s): Mother is . She had 3 vessel CABG Sister(s) Family Medical History: Coronary Artery Disease (CAD), Vascular Disorder Additional Family Medical History / Comment(s): Sister had CABG-3 vessel. She at the age of 56yrs which pt believes had to do with her blood thinners and a brain anuerysm. Father Family Medical History: Myocardial Infarction (CT) Additional Family Medical History / Comment(s): Father of a massive CT at the age of 65yrs. General Exam Limitations: no limitations General appearance: alert, in no apparent distress Head exam: Present: atraumatic, normocephalic Eye exam: Present: normal appearance, PERRL ENT exam: Present: normal exam Neck exam: Present: normal inspection. Absent: tenderness, meningismus Respiratory exam: Present: normal lung sounds bilaterally. Absent: respiratory distress, wheezes Cardiovascular Exam: Present: regular rate, normal rhythm, normal heart sounds GI/Abdominal exam: Present: soft. Absent: distended, tenderness Extremities exam: Present: normal inspection, normal capillary refill. Absent: pedal edema, calf tenderness Neurological exam: Present: alert, oriented X3, CN II-XII intact. Absent: motor sensory deficit Psychiatric exam: Present: normal affect, normal mood Skin exam: Present: warm, dry, intact. Absent: cyanosis, diaphoretic Course Vital Signs 06/26/19 06/26/19 06/26/19 10:58 11:52 12:36 Temperature 98.3 F Pulse Rate 66 58 L 60 Respiratory 18 18 18 Rate Blood Pressure 128/75 128/75 119/74 O2 Sat by Pulse 98 97 98 Oximetry - Reevaluation(s) Reevaluation #1: 06/26/19 12:25 Percocet administered for chronic back pain, this is a scheduled medication. EKG Findings - EKG Comments: EKG Findings:: EKG: Sinus bradycardia, rate of 52, CO interval 186, QRS duration 100, QTC 47, no ST segment changes, no change compared to previous in March 2019. Medical Decision Making - Medical Decision Making 58-year-old male presenting for evaluation of chest pain, and anxiety. Patient has had multiple episodes of this similar in the past. He had taken aspirin as well as Xanax prior to arrival and had improvement in his symptoms. Workup in the emergency department reveals normal CBC, normal CMP, negative troponin. EKG is sinus bradycardia no ST segment elevation. Chest x-ray performed which is negative for acute cardiopulmonary disease. Patient had stress echo in March 2019 which was negative for ischemic changes or wall motion abnormality. I did discuss observation versus serial cardiac enzymes with this patient. He does not want to be admitted at this time. A second troponin was drawn at the 3 hour alexandre which was also negative. He remains chest pain-free while in the emergency department. He will follow with his med aide. He will return with worsening or changing symptoms. - Lab Data Result diagrams: 06/26/19 11:13 06/26/19 11:13 Lab Results 06/26/19 06/26/19 06/26/19 Range/Units 11:13 11:13 11:13 WBC 6.3 (3.8-10.6) k/uL RBC 4.28 L (4.30-5.90) m/uL Hgb 12.9 L (13.0-17.5) gm/dL Hct 37.0 L (39.0-53.0) % MCV 86.6 (80.0-100.0) fL MCH 30.1 (25.0-35.0) pg MCHC 34.8 (31.0-37.0) g/dL RDW 12.9 (11.5-15.5) % Plt Count 239 (150-450) k/uL Neutrophils % 50 % Lymphocytes % 33 % Monocytes % 8 % Eosinophils % 5 % Basophils % 1 % Neutrophils # 3.2 (1.3-7.7) k/uL Lymphocytes # 2.1 (1.0-4.8) k/uL Monocytes # 0.5 (0-1.0) k/uL Eosinophils # 0.3 (0-0.7) k/uL Basophils # 0.1 (0-0.2) k/uL PT 10.1 (9.0-12.0) sec INR 1.0 (<1.2) APTT 24.1 (22.0-30.0) sec Sodium 139 (137-145) mmol/L Potassium 4.2 (3.5-5.1) mmol/L Chloride 107 (98-107) mmol/L Carbon Dioxide 26 (22-30) mmol/L Anion Gap 6 mmol/L BUN 9 (9-20) mg/dL Creatinine 0.87 (0.66-1.25) mg/dL Est GFR (CKD-EPI)AfAm >90 (>60 ml/min/1.73 sqM) Est GFR (CKD-EPI)NonAf >90 (>60 ml/min/1.73 sqM) Glucose 92 (74-99) mg/dL Calcium 8.5 (8.4-10.2) mg/dL Magnesium 1.9 (1.6-2.3) mg/dL Total Bilirubin 0.3 (0.2-1.3) mg/dL AST 23 (17-59) U/L ALT 15 (4-49) U/L Alkaline Phosphatase 101 (38-126) U/L Troponin I (0.000-0.034) ng/mL Total Protein 6.9 (6.3-8.2) g/dL Albumin 3.9 (3.5-5.0) g/dL 06/26/19 06/26/19 Range/Units 11:13 13:54 WBC (3.8-10.6) k/uL RBC (4.30-5.90) m/uL Hgb (13.0-17.5) gm/dL Hct (39.0-53.0) % MCV (80.0-100.0) fL MCH (25.0-35.0) pg MCHC (31.0-37.0) g/dL RDW (11.5-15.5) % Plt Count (150-450) k/uL Neutrophils % % Lymphocytes % % Monocytes % % Eosinophils % % Basophils % % Neutrophils # (1.3-7.7) k/uL Lymphocytes # (1.0-4.8) k/uL Monocytes # (0-1.0) k/uL Eosinophils # (0-0.7) k/uL Basophils # (0-0.2) k/uL PT (9.0-12.0) sec INR (<1.2) APTT (22.0-30.0) sec Sodium (137-145) mmol/L Potassium (3.5-5.1) mmol/L Chloride (98-107) mmol/L Carbon Dioxide (22-30) mmol/L Anion Gap mmol/L BUN (9-20) mg/dL Creatinine (0.66-1.25) mg/dL Est GFR (CKD-EPI)AfAm (>60 ml/min/1.73 sqM) Est GFR (CKD-EPI)NonAf (>60 ml/min/1.73 sqM) Glucose (74-99) mg/dL Calcium (8.4-10.2) mg/dL Magnesium (1.6-2.3) mg/dL Total Bilirubin (0.2-1.3) mg/dL AST (17-59) U/L ALT (4-49) U/L Alkaline Phosphatase (38-126) U/L Troponin I <0.012 <0.012 (0.000-0.034) ng/mL Total Protein (6.3-8.2) g/dL Albumin (3.5-5.0) g/dL Disposition Clinical Impression: Chest pain Disposition: HOME SELF-CARE Condition: Good Instructions (If sedation given, give patient instructions): Chest Pain (ED) Is patient prescribed a controlled substance at d/c from ED?: No Referrals: Rodrigo Bonilla MD [Primary Care Provider] - 1-2 days Time of Disposition: 14:56
[2019-06-26 11:40] LABS: Partial Thromboplastin Time 24.1 sec (22.0-30.0); Prothrombin Time 10.1 sec (9.0-12.0)
--- NOTE | 2019-06-26 11:47 | XR ---
EXAMINATION TYPE: XR chest 2V DATE OF EXAM: 06/26/2019 COMPARISON: 03/31/2019 HISTORY: Chest pain TECHNIQUE: Frontal and lateral views of the chest are obtained. FINDINGS: There is no focal air space opacity, pleural effusion, or pneumothorax seen. The cardiac silhouette size is within normal limits. The osseous structures are intact. Mild to moderate degene rative change of the spine. Unchanged vertebral body heights from the prior. IMPRESSION: No acute cardiopulmonary process.
[2019-06-26] MEDS ORDERED: oxyCODONE-APAP 10-325MG 1 EACH TAB PO STA (12:24)
[2019-06-26 15:15] VITALS: BP 148/73; PULSE 56; TEMP 98.2
== END 2019-06-26 15:14 | disposition home or self-care (01) ==
LOC: EC 10:54
DX: R07.9 Chest pain, unspecified (principal); F41.9 Anxiety disorder, unspecified; R00.1 Bradycardia, unspecified; M54.6 Pain in thoracic spine; I25.10 Atherosclerotic heart disease of native coronary artery without angina pectoris; K21.9 Gastro-esophageal reflux disease without esophagitis; E78.5 Hyperlipidemia, unspecified; I10 Essential (primary) hypertension; F17.200 Nicotine dependence, unspecified, uncomplicated; Z95.5 Presence of coronary angioplasty implant and graft; Z82.49 Family history of ischemic heart disease and other diseases of the circulatory system; Z79.891 Long term (current) use of opiate analgesic; Z79.82 Long term (current) use of aspirin; Z79.899 Other long term (current) drug therapy; Z88.5 Allergy status to narcotic agent
CPT/HCPCS: 36415; 71046; 80053; 83735; 84484; 85025; 85610; 85730; 93005; 99285

== ENCOUNTER 2020-01-23 10:23 | Emergency (ER) | payer OTHER ==
[2020-01-23 10:36] VITALS: RESP 18
[2020-01-23 10:42] LABS: Glucose,Whole Blood 144 mg/dL (75-99)
[2020-01-23 11:00] LABS: Basophils # (A) 0.1 k/uL (0-0.2); Basophils % (A) 2 %; Eosinophils # (A) 0.6 k/uL (0-0.7); Eosinophils % (A) 9 %; HCT 41.3 % (39.0-53.0); HGB 14.2 gm/dL (13.0-17.5); Lymphocytes % (A) 30 %; MCH 30.1 pg (25.0-35.0); MCHC 34.4 g/dL (31.0-37.0); MCV 87.5 fL (80.0-100.0); Monocytes # (A) 0.5 k/uL (0-1.0); Monocytes % (A) 8 %; Neutrophils # (A) 3.3 k/uL (1.3-7.7); Neutrophils % (A) 50 %; Platelet Count 236 k/uL (150-450); RBC 4.72 m/uL (4.30-5.90); RDW 12.9 % (11.5-15.5); WBC 6.6 k/uL (3.8-10.6)
--- NOTE | 2020-01-23 11:02 | XR ---
EXAMINATION TYPE: XR chest 2V DATE OF EXAM: 01/23/2020 COMPARISON: Prior chest x-ray June 26, 2019 HISTORY: History of cardiac stents with dysrhythmia. TECHNIQUE: Frontal and lateral views of the chest are obtained. FINDINGS: There is carotid triple change bilaterally without suspicious new focal air space opacity, pleural effusion, or pneumothorax seen. The cardiac silhouette size is stable and within normal denney its. Multilevel spurring in thoracic spine redemonstrated. IMPRESSION: No acute cardiopulmonary process. No significant change from prior.
[2020-01-23 11:10] LABS: Potassium 4.2 mmol/L (3.5-5.1)
[2020-01-23 11:11] LABS: ALT 15 U/L (4-49); AST 25 U/L (17-59); African American GFR (CKD) >90 (>60 ml/min/1.73 sqM); Albumin 4.2 g/dL (3.5-5.0); Alkaline Phosphatase 91 U/L (38-126); Anion Gap 8 mmol/L; Blood Urea Nitrogen 8 mg/dL (9-20); Calcium 9.1 mg/dL (8.4-10.2); Carbon Dioxide 24 mmol/L (22-30); Chloride 106 mmol/L (98-107); Glucose 116 mg/dL (74-99); Magnesium 1.9 mg/dL (1.6-2.3); Non-African American GFR(CKD) >90 (>60 ml/min/1.73 sqM); Sodium 138 mmol/L (137-145); Total Bilirubin 0.5 mg/dL (0.2-1.3); Total Protein 7.2 g/dL (6.3-8.2)
[2020-01-23 11:12] LABS: Partial Thromboplastin Time 23.8 sec (22.0-30.0); Prothrombin Time 9.9 sec (9.0-12.0)
[2020-01-23] MEDS ORDERED: oxyCODONE-APAP 10-325MG 1 EACH TAB PO STA (11:33)
--- NOTE | 2020-01-23 11:39 | ED ---
General Adult HPI - General Chief complaint: Dizziness Stated complaint: Dizziness,Anxiety Time Seen by Provider: 01/23/20 10:25 Source: patient, EMS, RN notes reviewed, old records reviewed Mode of arrival: EMS Limitations: no limitations - History of Present Illness Initial comments: This is a 59-year-old male who presents emergency department stating that he had a sudden onset of nervousness or to the point where he was shaking. Patient states he took a Xanax and about an hour and half later he felt considerably better. Patient states when these events occur initially occurred multiple times. Patient states that he feels like he might pass out but never does. Patient denies any chest pain difficult breathing shortness of breath per patien t denies any fever chills or cough. Patient states he has taken Xanax in the past and it seems to relieve the symptoms. Patient states he's had his heart worked up and they have not found any cause for the symptoms as well. - Related Data Home Medications Medication Instructions Recorded Confirmed oxyCODONE-APAP 10-325MG [Percocet 1 tab PO QID 08/24/13 01/23/20 10-325 mg] Aspirin EC [Ecotrin Low Dose] 81 mg PO DAILY 03/23/18 01/23/20 Atorvastatin [Lipitor] 40 mg PO HS 03/23/18 01/23/20 Metoprolol Succinate [Toprol Xl] 50 mg PO BID 03/23/18 01/23/20 ALPRAZolam [Xanax] 0.5 mg PO BID PRN 03/31/19 01/23/20 Nitroglycerin Sl Tabs [Nitrostat] 0.4 mg PO Q5M PRN 03/31/19 01/23/20 Famotidine [Pepcid] 40 mg PO DAILY 01/23/20 01/23/20 Allergies Allergy/AdvReac Type Severity Reaction Status Date / Time morphine AdvReac Rash/Hives Verified 01/23/20 11:20 Review of Systems ROS Statement: Those systems with pertinent positive or pertinent negative responses have been documented in the HPI. ROS Other: All systems not noted in ROS Statement are negative. Past Medical History Past Medical History: Coronary Artery Disease (CAD), Chest Pain / Angina, GERD/Reflux, Hyperlipidemia, Hypertension, Musculoskeletal Disorder Additional Past Medical History / Comment(s): Recent r knee skin infection tx with antibiotic-pt states not getting much better, chronic cervical and lower back pain, bronchitis. History of Any Multi-Drug Resistant Organisms: None Reported Past Surgical History: No Surgical Hx Reported, Heart Catheterization With Stent Additional Past Surgical History / Comment(s): PCI [facility] stent [facility] April,, pain clinic procedures, cyst lanced on R shoulder - 2016 Past Anesthesia/Blood Transfusion Reactions: No Reported Reaction Date of Last Stent Placement:: April 2017 Past Psychological History: No Psychological Hx Reported Smoking Status: Former smoker Past Alcohol Use History: None Reported Past Drug Use History: None Reported - Past Family History Mother Family Medical History: Coronary Artery Disease (CAD), Diabetes Mellitus Additional Family Medical History / Comment(s): Mother is . She had 3 vessel CABG Sister(s) Family Medical History: Coronary Artery Disease (CAD), Vascular Disorder Additional Family Medical History / Comment(s): Sister had CABG-3 vessel. She at the age of 56yrs which pt believes had to do with her blood thinners and a brain anuerysm. Father Family Medical History: Myocardial Infarction (MA) Additional Family Medical History / Comment(s): Father of a massive MA at the age of 65yrs. General Exam - General Exam Comments Initial Comments: GENERAL: Patient is well-developed and well-nourished. Patient is nontoxic and well- hydrated and is in no acute distress. ENT: Neck is soft and supple. No significant lymphadenopathy is noted. Oropharynx is clear. Moist mucous membranes. Neck has full range of motion without eliciting any pain. EYES: The sclera were anicteric and conjunctiva were pink and moist. Extraocular movements were intact and pupils were equal round and reactive to light. Eyeli ds were unremarkable. PULMONARY: Unlabored respirations. Good breath sounds bilaterally. No audible rales rhonchi or wheezing was noted. CARDIOVASCULAR: There is a regular rate and rhythm without any murmurs gallops or rubs. ABDOMEN: Soft and nontender with normal bowel sounds. SKIN: Skin is clear with no lesions or rashes and otherwise unremarkable. NEUROLOGIC: Patient is alert and oriented x3. Cranial nerves II through XII are grossly intact. Motor and sensory are also intact. Normal speech, volume and content. Symmetrical smile. MUSCULOSKELETAL: Normal extremities with adequate strength and full range of motion. LYMPHATICS: No significant lymphadenopathy is noted PSYCHIATRIC: Patient seems mildly anxious. Limitations: no limitations Course Vital Signs 01/23/20 01/23/20 10:29 11:36 Temperature 97.9 F 97.6 F Pulse Rate 71 73 Respiratory 18 18 Rate Blood Pressure 167/92 135/80 O2 Sat by Pulse 97 98 Oximetry Medical Decision Making - Medical Decision Making EKG shows a normal sinus rhythm at 70 bpm SC interval 182 QRS is 102 QT interval 42 QTC is 434. Patient's EKG shows no ST segment elevation or depression. - Lab Data Result diagrams: 01/23/20 10:44 01/23/20 10:44 Lab Results 01/23/20 01/23/20 01/23/20 Range/Units 10:29 10:44 10:44 WBC 6.6 (3.8-10.6) k/uL RBC 4.72 (4.30-5.90) m/uL Hgb 14.2 (13.0-17.5) gm/dL Hct 41.3 (39.0-53.0) % MCV 87.5 (80.0-100.0) fL MCH 30.1 (25.0-35.0) pg MCHC 34.4 (31.0-37.0) g/dL RDW 12.9 (11.5-15.5) % Plt Count 236 (150-450) k/uL Neutrophils % 50 % Lymphocytes % 30 % Monocytes % 8 % Eosinophils % 9 % Basophils % 2 % Neutrophils # 3.3 (1.3-7.7) k/uL Lymphocytes # 2.0 (1.0-4.8) k/uL Monocytes # 0.5 (0-1.0) k/uL Eosinophils # 0.6 (0-0.7) k/uL Basophils # 0.1 (0-0.2) k/uL PT 9.9 (9.0-12.0) sec INR 1.0 (<1.2) APTT 23.8 (22.0-30.0) sec Sodium (137-145) mmol/L Potassium (3.5-5.1) mmol/L Chloride (98-107) mmol/L Carbon Dioxide (22-30) mmol/L Anion Gap mmol/L BUN (9-20) mg/dL Creatinine (0.66-1.25) mg/dL Est GFR (CKD-EPI)AfAm (>60 ml/min/1.73 sqM) Est GFR (CKD-EPI)NonAf (>60 ml/min/1.73 sqM) Glucose (74-99) mg/dL POC Glucose (mg/dL) 144 H (75-99) mg/dL POC Glu Table Worker Packager Marilu Mahmood Calcium (8.4-10.2) mg/dL Magnesium (1.6-2.3) mg/dL Total Bilirubin (0.2-1.3) mg/dL AST (17-59) U/L ALT (4-49) U/L Alkaline Phosphatase (38-126) U/L Troponin I (0.000-0.034) ng/mL Total Protein (6.3-8.2) g/dL Albumin (3.5-5.0) g/dL TSH (0.465-4.680) mIU/L 01/23/20 01/23/20 Range/Units 10:44 10:44 WBC (3.8-10.6) k/uL RBC (4.30-5.90) m/uL Hgb (13.0-17.5) gm/dL Hct (39.0-53.0) % MCV (80.0-100.0) fL MCH (25.0-35.0) pg MCHC (31.0-37.0) g/dL RDW (11.5-15.5) % Plt Count (150-450) k/uL Neutrophils % % Lymphocytes % % Monocytes % % Eosinophils % % Basophils % % Neutrophils # (1.3-7.7) k/uL Lymphocytes # (1.0-4.8) k/uL Monocytes # (0-1.0) k/uL Eosinophils # (0-0.7) k/uL Basophils # (0-0.2) k/uL PT (9.0-12.0) sec INR (<1.2) APTT (22.0-30.0) sec Sodium 138 (137-145) mmol/L Potassium 4.2 (3.5-5.1) mmol/L Chloride 106 (98-107) mmol/L Carbon Dioxide 24 (22-30) mmol/L Anion Gap 8 mmol/L BUN 8 L (9-20) mg/dL Creatinine 0.77 (0.66-1.25) mg/dL Est GFR (CKD-EPI)AfAm >90 (>60 ml/min/1.73 sqM) Est GFR (CKD-EPI)NonAf >90 (>60 ml/min/1.73 sqM) Glucose 116 H (74-99) mg/dL POC Glucose (mg/dL) (75-99) mg/dL POC Glu Table Worker Packager ID Calcium 9.1 (8.4-10.2) mg/dL Magnesium 1.9 (1.6-2.3) mg/dL Total Bilirubin 0.5 (0.2-1.3) mg/dL AST 25 (17-59) U/L ALT 15 (4-49) U/L Alkaline Phosphatase 91 (38-126) U/L Troponin I <0.012 (0.000-0.034) ng/mL Total Protein 7.2 (6.3-8.2) g/dL Albumin 4.2 (3.5-5.0) g/dL TSH 2.580 (0.465-4.680) mIU/L Disposition Clinical Impression: Anxiety Disposition: HOME SELF-CARE Condition: Good Instructions (If sedation given, give patient instructions): Anxiety (ED) Is patient prescribed a controlled substance at d/c from ED?: No Referrals: Rodrigo Bonilla MD [Primary Care Provider] - 1-2 days Time of Disposition: 12:21
[2020-01-23 12:39] VITALS: BP 118/72; PULSE 64; TEMP 98.4
== END 2020-01-23 12:38 | disposition home or self-care (01) ==
LOC: EC 10:23
DX: F41.9 Anxiety disorder, unspecified (principal); I25.119 Atherosclerotic heart disease of native coronary artery with unspecified angina pectoris; I10 Essential (primary) hypertension; K21.9 Gastro-esophageal reflux disease without esophagitis; Z79.82 Long term (current) use of aspirin; Z79.899 Other long term (current) drug therapy; Z88.5 Allergy status to narcotic agent; Z87.891 Personal history of nicotine dependence; Z95.5 Presence of coronary angioplasty implant and graft
CPT/HCPCS: 36415; 71046; 80053; 83735; 84443; 84484; 85025; 85610; 85730; 93005; 99285

== ENCOUNTER → 2020-03-15 | Outpatient (CLI) | payer OTHER ==
--- NOTE | 2020-03-15 08:23 | CT ---
EXAMINATION TYPE: CT soft tissue neck w con DATE OF EXAM: 03/15/2020 COMPARISON: None HISTORY: 59-year-old male swollen lymph nodes posterior head from ear to ear x 8 months TECHNIQUE: Contiguous axial scanning of the soft tissues of the neck performed with IV Contrast, jeffrey ent injected with 100 mL of Isovue 300. Coronal/sagittal reconstructions performed. CT DLP: 663.8 mGycm Automated exposure control for dose reduction was used. FINDINGS: Visualized intracranial structures, paranasal sinuses, orbits and globes, and mastoid air cells appea r clear. Trace mucosal thickening floor of the left maxillary sinus. The thyroid and submandibular glands are satisfactory. Bilateral parotid glands are atrophic. A promi nent 7 mm left parotid space lymph node is nonspecific. Nasopharynx appears clear. Scattered dental amalgam limiting assessment of the oral cavity. Moderate bilateral palatine tonsillar hypertrophy. Punctate calcifications on the right suggests sequ patt of prior infection. Additional mild lingual tonsillar hypertrophy. Epiglottis and prevertebral soft tissues are within normal limits. The glottic and subglottic structures as well as the tracheal column appear clear. Tiny calcified granuloma left apex. Mild emphysema within the visualized upper lungs. A mildly enlarged right paratracheal lymph node ramone sures 1.1 cm. A few borderline enlarged lymph nodes on both sides of the upper neck measuring up to 1.4 cm on the r ight and 1.3 cm on the left. A few tiny suboccipital lymph nodes are present posteriorly measuring up to 4 mm. A few borderline enlarged submandibular space lymph nodes measuring up to 8 mm on the right and 9 mm on the left (coronal image 24 and 21). Bones: Mild degenerative disc disease mid to lower cervical spine with facet and uncovertebral joint arthropathy. IMPRESSION: 1. SCATTERED BORDERLINE ENLARGED LYMPH NODES IN THE UPPER NECK PARTICULARLY STATION 2A, SUBMANDIBULAR SPACE, AND LEFT PAROTID SPACE. PROBABLY REACTIVE/POST INFLAMMATORY. 2. A FEW TINY LYMPH NODES ARE SEEN ALONG THE POSTERIOR SUBOCCIPITAL REGION MEASURING UP TO 4 MM. 3. MODERATE BILATERAL PALATINE TONSILLAR HYPERTROPHY AND MILD TONSILLAR HYPERTROPHY. 4. LYMPH NODES SHOULD BE FOLLOWED CLINICALLY. IF ANY ENLARGEMENT IS NOTED OR SUSPICIOUS FEATURES DEVE LOP, TARGETED ULTRASOUND CAN BE PERFORMED TO REASSESS.
== END | disposition home or self-care (01) ==
LOC: RADCTMAIN 07:23
PROVIDERS: ATTEND Family Medicine
DX: J35.1 Hypertrophy of tonsils (principal); R22.1 Localized swelling, mass and lump, neck
CPT/HCPCS: 70491; Q9967

== ENCOUNTER → 2020-04-12 | Outpatient (CLI) | payer OTHER ==
[2020-04-12 20:10] LABS: African American GFR (CKD) 108.7 (60.0-200.0); Non-African American GFR(CKD) 93.8 (60.0-200.0)
== END | disposition home or self-care (01) ==
LOC: LABWHC1 13:54
PROVIDERS: ATTEND Otolaryngology Facial Plastic Surgery
DX: M54.2 Cervicalgia (principal)
CPT/HCPCS: 36415; 82565; 84520

== ENCOUNTER → 2020-05-11 | Outpatient (CLI) | payer OTHER ==
--- NOTE | 2020-05-11 16:01 | MR ---
EXAMINATION TYPE: MR neck wo/w con DATE OF EXAM: 05/11/2020 COMPARISON: None HISTORY: Posterior neck pain, headaches CONTRAST: Standard multiplanar, multisequence MRI departmental protocol utilizing 11.5 mL intravenous Gadavist gadolinium contrast. The skull base is intact. There is normal aeration of the maxillary ethmoid and sphenoid sinuses. The re is no evidence of retro-orbital mass. There are a few anterior triangle cervical lymph nodes. The largest measures 14 mm in length. Submandibular salivary glands are symmetric. Parotid glands are symmetric. The tongue appears normal. There is no evidence of retropharyngeal mass. The upper trachea appears intact. Epiglottis appears n ormal. Contrast images show no pathologic enhancement. Superior mediastinum appears normal. Thyroid gland is fairly symmetric. There is no evidence of mediastinal adenopathy. Cervical spinal cord has normal signal pattern. There is no evidence of edema. IMPRESSION: Negative MR scan of the neck.
== END | disposition home or self-care (01) ==
LOC: RADMRIMAIN 13:26
PROVIDERS: ATTEND Otolaryngology Facial Plastic Surgery
DX: M54.2 Cervicalgia (principal)
CPT/HCPCS: 70544; 70549; 70543; A9585

== ENCOUNTER → 2020-07-26 | Outpatient (CLI) | payer OTHER ==
--- NOTE | 2020-07-26 16:54 | CT ---
EXAMINATION TYPE: CT iac wo con DATE OF EXAM: 07/26/2020 COMPARISON: CT brain 04/08/2018 HISTORY: 60-year-old male R42 Dizziness and giddiness x1 year. Vertigo. CT DLP: 142.7 mGycm Automated exposure control for dose reduction was used. TECHNIQUE: Contiguous high-resolution axial scanning of the temporal bones performed without contras t. Coronal reformatted images obtained. FINDINGS: No gross abnormal mobility of the visualized intracranial structures allowing for thin section noncon trast technique. The skull base appears normal. Some focal 4 mm cerumen within the deep right external auditory canal. The middle ear cavities and mastoid air cells are well pneumatized. There is no abnormality of middle ear ossicles. The round and oval windows are normal. There is no abnormality of bony labyrinths. The vestibular and cochlear aqueducts are well visualized. The facial nerve canal is normal bilaterally. The internal auditory canal and meati are symmetrical bilaterally. There is no evidence of fractures. Trace mucosal thickening floor of the left maxillary sinus. Stable enlarged 9 mm left parotid space lymph node. Additional smaller parotid space lymph nodes on t he right are also unchanged. Reformatted images confirm above findings. IMPRESSION: 1. Aside from a focal 4 mm nodule of cerumen in the deep right external auditory canal, no specific a bnormality on CT temporal bones. 2. Trace mucosal thickening floor of the left maxillary sinus. Stable borderline to mildly enlarged p arotid space lymph nodes measuring up to 9 mm, unchanged from 04/08/2018.
--- NOTE | 2020-07-26 20:45 | MR ---
EXAMINATION TYPE: MR brain wo/w con DATE OF EXAM: 07/26/2020 COMPARISON: MR brain 03/16/2014 HISTORY: Vertigo, dizziness, lightheaded TECHNIQUE: Multiplanar, multisequence images of the brain and brainstem is performed without and with IV contras t, utilizing 12 mL intravenous Gadavist . FINDINGS: Diffusion weighted images demonstrate no evidence of a recent infarct or other diffusion ab normality. There is no extra-axial fluid collection or significant interval change in white matter s ignal abnormality. The ventricular system and cisternal spaces are normal in size and appearance. T he brain volume is age appropriate. Midline structures demonstrate normal morphology. The craniocervical junction appears within normal limits. Post contrast images demonstrate no abnormal enhancement. The dural venous sinuses appear pa tent. The visualized sinuses are clear and the globes are intact. IMPRESSION: No significant interval change. Nonspecific white matter demyelination is stable.
== END | disposition home or self-care (01) ==
LOC: RADCTMAIN 15:49
PROVIDERS: ATTEND Otolaryngology Facial Plastic Surgery
DX: R90.82 White matter disease, unspecified (principal); H61.891 Other specified disorders of right external ear
CPT/HCPCS: 70480; 70553; A9585

== ENCOUNTER 2021-01-08 11:17 | Emergency (ER) | payer OTHER ==
[2021-01-08 11:29] VITALS: TEMP 98.1
[2021-01-08] MEDS ORDERED: SODIUM CHLORIDE 0.9% 1,000 ML IV STA (11:51)
[2021-01-08 12:56] LABS: ALT 17 U/L (4-49); AST 33 U/L (17-59); African American GFR (CKD) >90 (>60 ml/min/1.73 sqM); Albumin 4.2 g/dL (3.5-5.0); Alkaline Phosphatase 94 U/L (38-126); Anion Gap 9 mmol/L; Blood Urea Nitrogen 10 mg/dL (9-20); Calcium 9.5 mg/dL (8.4-10.2); Carbon Dioxide 25 mmol/L (22-30); Chloride 104 mmol/L (98-107); Glucose 114 mg/dL (74-99); Non-African American GFR(CKD) >90 (>60 ml/min/1.73 sqM); Potassium 4.6 mmol/L (3.5-5.1); Sodium 138 mmol/L (137-145); Total Bilirubin 0.5 mg/dL (0.2-1.3); Total Protein 7.6 g/dL (6.3-8.2)
[2021-01-08 13:06] LABS: Basophils # (A) 0.1 k/uL (0-0.2); Basophils % (A) 1 %; Eosinophils # (A) 0.4 k/uL (0-0.7); Eosinophils % (A) 7 %; HCT 40.6 % (39.0-53.0); HGB 13.8 gm/dL (13.0-17.5); Lymphocytes # (A) 1.8 k/uL (1.0-4.8); Lymphocytes % (A) 30 %; MCH 29.9 pg (25.0-35.0); MCHC 34.1 g/dL (31.0-37.0); MCV 87.6 fL (80.0-100.0); Mean Platelet Volume 7.8; Monocytes # (A) 0.5 k/uL (0-1.0); Monocytes % (A) 8 %; Neutrophils # (A) 3.2 k/uL (1.3-7.7); Neutrophils % (A) 53 %; Platelet Count 275 k/uL (150-450); RBC 4.63 m/uL (4.30-5.90); RDW 12.8 % (11.5-15.5); WBC 6.1 k/uL (3.8-10.6)
--- NOTE | 2021-01-08 13:10 | CT ---
EXAMINATION TYPE: CT brain wo con DATE OF EXAM: 01/08/2021 HISTORY: HAGAN, dizziness CT DLP: 1173.4 mGycm. Automated Exposure Control for Dose Reduction was Utilized. TECHNIQUE: CT scan of the head is performed without contrast. COMPARISON: CT brain April 18, 2018. FINDINGS: There is no acute intracranial hemorrhage or midline shift identified. There is mild diff use ventricular and sulcal prominence consistent with diffuse age-related cerebral atrophy. Hurt-whit e matter differentiation is fairly well maintained. The globes are intact and the visualized sinuses are clear. No suspicious new opacification of the mastoid air cells. IMPRESSION: No acute intracranial hemorrhage or midline shift. There is mild diffuse cerebral atrop hy redemonstrated. No significant change from prior.
--- NOTE | 2021-01-08 13:11 | XR ---
EXAMINATION TYPE: XR chest 2V DATE OF EXAM: 01/08/2021 COMPARISON: Chest x-ray January 23, 2020 HISTORY: Headaches and dizziness. TECHNIQUE: Frontal and lateral views of the chest are obtained. FINDINGS: There is no suspicious new focal air space opacity, pleural effusion, or pneumothorax seen . The cardiac silhouette size is within normal limits. Bridging osteophytes in the thoracic spine ar e redemonstrated. Overlying EKG leads again seen. IMPRESSION: No acute cardiopulmonary process. No significant change from prior.
--- NOTE | 2021-01-08 13:27 | ED ---
General Adult HPI - General Chief complaint: Dizziness Stated complaint: Dizziness,Headache Time Seen by Provider: 01/08/21 11:25 Source: patient, EMS Mode of arrival: EMS Limitations: no limitations - History of Present Illness Initial comments: 60-year-old male accompanied past medical history including CAD, hyperlipidemia, hypertension presents to the emergency room for a chief complaint of headache. 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 He states that all of the fans are broken which is not helping. He started to get a headache and had some numbness on the top of his head. States that this lasted a couple hours. States that this concerned him and he wanted to be evaluated. Upon arrival patient's headache resolved in the numbness was feeling much better.Patient has no other complaints at this time including shortness of breath, chest pain, abdominal pain, nausea or vomiting, or visual changes. - Related Data Home Medications Medication Instructions Recorded Confirmed oxyCODONE-APAP 10-325MG [Percocet 1 tab PO Q6H 08/24/13 01/08/21 10-325 mg] Aspirin EC [Ecotrin Low Dose] 81 mg PO DAILY 03/23/18 01/08/21 Atorvastatin [Lipitor] 40 mg PO HS 03/23/18 01/08/21 Metoprolol Succinate [Toprol Xl] 50 mg PO BID 03/23/18 01/08/21 Nitroglycerin Sl Tabs [Nitrostat] 0.4 mg PO Q5M PRN 03/31/19 01/08/21 Famotidine [Pepcid] 40 mg PO DAILY 01/23/20 01/08/21 Allergies Allergy/AdvReac Type Severity Reaction Status Date / Time morphine AdvReac Rash/Hives Verified 01/08/21 12:47 Review of Systems ROS Statement: Those systems with pertinent positive or pertinent negative responses have been documented in the HPI. ROS Other: All systems not noted in ROS Statement are negative. Past Medical History Past Medical History: Coronary Artery Disease (CAD), Chest Pain / Angina, GERD/Reflux, Hyperlipidemia, Hypertension, Musculoskeletal Disorder Additional Past Medical History / Comment(s): Recent r knee skin infection tx with antibiotic-pt states not getting much better, chronic cervical and lower back pain, bronchitis. History of Any Multi-Drug Resistant Organisms: None Reported Past Surgical History: No Surgical Hx Reported, Heart Catheterization With Stent Additional Past Surgical History / Comment(s): PCI with stent at [facility] April,, pain clinic procedures, cyst lanced on R shoulder - 2016 Past Anesthesia/Blood Transfusion Reactions: No Reported Reaction Date of Last Stent Placement:: April 2017 Past Psychological History: No Psychological Hx Reported Smoking Status: Former smoker Past Alcohol Use History: None Reported Past Drug Use History: None Reported - Past Family History Mother Family Medical History: Coronary Artery Disease (CAD), Diabetes Mellitus Additional Family Medical History / Comment(s): Mother is . She had 3 vessel CABG Sister(s) Family Medical History: Coronary Artery Disease (CAD), Vascular Disorder Additional Family Medical History / Comment(s): Sister had CABG-3 vessel. She at the age of 56yrs which pt believes had to do with her blood thinners and a brain anuerysm. Father Family Medical History: Myocardial Infarction (NM) Additional Family Medical History / Comment(s): Father of a massive NM at the age of 65yrs. General Exam Limitations: no limitations General appearance: alert, in no apparent distress Head exam: Present: atraumatic Eye exam: Present: normal appearance, PERRL, EOMI. Absent: scleral icterus, conjunctival injection ENT exam: Present: normal exam, mucous membranes moist Neck exam: Present: normal inspection, full ROM. Absent: tenderness Respiratory exam: Present: normal lung sounds bilaterally. Absent: respiratory distress, wheezes Cardiovascular Exam: Present: regular rate, normal rhythm, normal heart sounds GI/Abdominal exam: Present: soft, normal bowel sounds. Absent: distended, tenderness Neurological exam: Present: alert Course Vital Signs 01/08/21 01/08/21 11:21 13:03 Temperature 98.1 F Pulse Rate 65 57 L Respiratory 18 16 Rate Blood Pressure 153/89 118/87 O2 Sat by Pulse 96 95 Oximetry EKG Findings - EKG Comments: EKG Findings:: Normal sinus rhythm, ventricular rate 65, [place] interval 186, QTC 411 Medical Decision Making - Medical Decision Making Vitals are stable. Patient is well-appearing. EKG nonischemic. CBC CMP unremarkable. Troponin negative. CT brain was obtained which shows no acute i ntracranial hemorrhage or midline shift. I did review previous CTA and MRA which were unremarkable from this year. Chest x-ray shows no acute cardiopulmonary process. Patient reevaluated, continues to be symptom free at this time. Patient and the decision to follow-up with primary care. Will re turn here for any worsening symptoms. - Lab Data Result diagrams: 01/08/21 12:09 01/08/21 12:09 Lab Results 01/08/21 01/08/21 01/08/21 Range/Units 12:09 12:09 12:09 WBC 6.1 (3.8-10.6) k/uL RBC 4.63 (4.30-5.90) m/uL Hgb 13.8 (13.0-17.5) gm/dL Hct 40.6 (39.0-53.0) % MCV 87.6 (80.0-100.0) fL MCH 29.9 (25.0-35.0) pg MCHC 34.1 (31.0-37.0) g/dL RDW 12.8 (11.5-15.5) % Plt Count 275 (150-450) k/uL MPV 7.8 Neutrophils % 53 % Lymphocytes % 30 % Monocytes % 8 % Eosinophils % 7 % Basophils % 1 % Neutrophils # 3.2 (1.3-7.7) k/uL Lymphocytes # 1.8 (1.0-4.8) k/uL Monocytes # 0.5 (0-1.0) k/uL Eosinophils # 0.4 (0-0.7) k/uL Basophils # 0.1 (0-0.2) k/uL Sodium 138 (137-145) mmol/L Potassium 4.6 (3.5-5.1) mmol/L Chloride 104 (98-107) mmol/L Carbon Dioxide 25 (22-30) mmol/L Anion Gap 9 mmol/L BUN 10 (9-20) mg/dL Creatinine 0.75 (0.66-1.25) mg/dL Est GFR (CKD-EPI)AfAm >90 (>60 ml/min/1.73 sqM) Est GFR (CKD-EPI)NonAf >90 (>60 ml/min/1.73 sqM) Glucose 114 H (74-99) mg/dL Calcium 9.5 (8.4-10.2) mg/dL Total Bilirubin 0.5 (0.2-1.3) mg/dL AST 33 (17-59) U/L ALT 17 (4-49) U/L Alkaline Phosphatase 94 (38-126) U/L Troponin I <0.012 (0.000-0.034) ng/mL Total Protein 7.6 (6.3-8.2) g/dL Albumin 4.2 (3.5-5.0) g/dL Disposition Clinical Impression: Headache Disposition: HOME SELF-CARE Condition: Good Instructions (If sedation given, give patient instructions): Acute Headache (ED) Additional Instructions: Please follow up with her doctor in one to 2 days. Return to the emergency room for any worsening symptoms Is patient prescribed a controlled substance at d/c from ED?: No Referrals: Rodrigo Bonilla MD [Primary Care Provider] - 1-2 days Time of Disposition: 13:37
[2021-01-08 13:58] VITALS: BP 125/82; PULSE 60; RESP 18
== END 2021-01-08 13:56 | disposition home or self-care (01) ==
LOC: EC 11:17
DX: R51.9 Headache, unspecified (principal); I10 Essential (primary) hypertension; I25.10 Atherosclerotic heart disease of native coronary artery without angina pectoris; E78.5 Hyperlipidemia, unspecified; K21.9 Gastro-esophageal reflux disease without esophagitis; Z79.82 Long term (current) use of aspirin; Z79.899 Other long term (current) drug therapy; Z87.891 Personal history of nicotine dependence; Z88.5 Allergy status to narcotic agent; Z95.5 Presence of coronary angioplasty implant and graft; Z83.3 Family history of diabetes mellitus; Z82.49 Family history of ischemic heart disease and other diseases of the circulatory system
CPT/HCPCS: 36415; 70450; 71046; 80053; 84484; 85025; 93005; 96360; 99285

== ENCOUNTER 2021-09-17 22:24 | Emergency (ER) | payer OTHER ==
[2021-09-17 22:35] VITALS: TEMP 98.1
[2021-09-17 23:29] LABS: Basophils # (A) 0.1 k/uL (0-0.2); Basophils % (A) 1 %; Eosinophils # (A) 0.2 k/uL (0-0.7); Eosinophils % (A) 2 %; HCT 42.5 % (39.0-53.0); HGB 14.3 gm/dL (13.0-17.5); Lymphocytes # (A) 2.5 k/uL (1.0-4.8); Lymphocytes % (A) 28 %; MCH 29.9 pg (25.0-35.0); MCHC 33.6 g/dL (31.0-37.0); MCV 88.7 fL (80.0-100.0); Mean Platelet Volume 7.2; Monocytes # (A) 0.6 k/uL (0-1.0); Monocytes % (A) 7 %; Neutrophils # (A) 5.4 k/uL (1.3-7.7); Neutrophils % (A) 61 %; Platelet Count 303 k/uL (150-450); RBC 4.79 m/uL (4.30-5.90); RDW 13.5 % (11.5-15.5); WBC 8.9 k/uL (3.8-10.6)
[2021-09-17 23:39] LABS: ALT 16 U/L (4-49); AST 23 U/L (17-59); African American GFR (CKD) >90 (>60 ml/min/1.73 sqM); Albumin 4.7 g/dL (3.5-5.0); Alkaline Phosphatase 94 U/L (38-126); Anion Gap 10 mmol/L; Blood Urea Nitrogen 14 mg/dL (9-20); Calcium 9.2 mg/dL (8.4-10.2); Carbon Dioxide 24 mmol/L (22-30); Chloride 105 mmol/L (98-107); Glucose 134 mg/dL (74-99); Magnesium 1.8 mg/dL (1.6-2.3); Non-African American GFR(CKD) 80 (>60 ml/min/1.73 sqM); Potassium 3.7 mmol/L (3.5-5.1); Sodium 139 mmol/L (137-145); Total Bilirubin 0.4 mg/dL (0.2-1.3); Total Protein 7.6 g/dL (6.3-8.2)
[2021-09-17 23:40] LABS: Partial Thromboplastin Time 26.3 sec (22.0-30.0)
--- NOTE | 2021-09-18 01:03 | ED ---
General Adult HPI - General Chief complaint: Chest Pain Stated complaint: Hypertension/sweating Time Seen by Provider: 09/18/21 00:20 Source: patient Mode of arrival: ambulatory Limitations: no limitations - History of Present Illness Initial comments: This patient is a 61-year-old man who presents to have evaluation of a constellation of symptoms that started tonight. The patient states that earlier in the evening his blood pressure had gone higher than normal. His blood pressure medicine had been changed today he did take medication for that and then states that he took Xanax in addition. He was feeling better and then he decided to go fishing patient states that a couple of hours ago he was fishing and he noticed that all of a sudden he was breaking into a cold sweat. He also felt some discomfort in his back between the shoulder blades. He felt he should be seen here. Patient states that the discomfort as for the most part cleared u p and he has stopped sweating. -: hour(s) Location: back Radiation: non-radiation Quality: dull Consistency: now resolved Improves with: none Worsens with: none Associated Symptoms: diaphoresis Treatments Prior to Arrival: none - Related Data Home Medications Medication Instructions Recorded Confirmed oxyCODONE-APAP 10-325MG [Percocet 1 tab PO Q6H 08/24/13 01/08/21 10-325 mg] Aspirin EC [Ecotrin Low Dose] 81 mg PO DAILY 03/23/18 01/08/21 Atorvastatin [Lipitor] 40 mg PO HS 03/23/18 01/08/21 Metoprolol Succinate [Toprol Xl] 50 mg PO BID 03/23/18 01/08/21 Nitroglycerin Sl Tabs [Nitrostat] 0.4 mg PO Q5M PRN 03/31/19 01/08/21 Famotidine [Pepcid] 40 mg PO DAILY 01/23/20 01/08/21 Allergies Allergy/AdvReac Type Severity Reaction Status Date / Time morphine AdvReac Rash/Hives Verified 09/17/21 22:35 Review of Systems ROS Statement: Those systems with pertinent positive or pertinent negative responses have been documented in the HPI. ROS Other: All systems not noted in ROS Statement are negative. Constitutional: Denies: fever, chills, weakness Eyes: Denies: vision change Respiratory: Denies: cough, dyspnea, wheezes Cardiovascular: Reports: as per HPI, chest pain. Denies: palpitations, orthopnea, edema, syncope Gastrointestinal: Denies: abdominal pain, nausea, vomiting Genitourinary: Denies: dysuria, hematuria Musculoskeletal: Reports: as per HPI, back pain Skin: Denies: rash Neurological: Denies: headache, weakness, numbness, confusion Past Medical History Past Medical History: Coronary Artery Disease (CAD), Chest Pain / Angina, GERD/Reflux, Hyperlipidemia, Hypertension, Musculoskeletal Disorder Additional Past Medical History / Comment(s): Recent r knee skin infection tx with antibiotic-pt states not getting much better, chronic cervical and lower back pain, bronchitis. History of Any Multi-Drug Resistant Organisms: None Reported Past Surgical History: No Surgical Hx Reported, Heart Catheterization With Stent Additional Past Surgical History / Comment(s): PCI with stent at [facility] April,, pain clinic procedures, cyst lanced on R shoulder - 2016 Past Anesthesia/Blood Transfusion Reactions: No Reported Reaction Date of Last Stent Placement:: April 2017 Past Psychological History: No Psychological Hx Reported Smoking Status: Former smoker Past Alcohol Use History: None Reported Past Drug Use History: None Reported - Past Family History Mother Family Medical History: Coronary Artery Disease (CAD), Diabetes Mellitus Additional Family Medical History / Comment(s): Mother is . She had 3 vessel CABG Sister(s) Family Medical History: Coronary Artery Disease (CAD), Vascular Disorder Additional Family Medical History / Comment(s): Sister had CABG-3 vessel. She at the age of 56yrs which pt believes had to do with her blood thinners and a brain anuerysm. Father Family Medical History: Myocardial Infarction (IN) Additional Family Medical History / Comment(s): Father of a massive IN at the age of 65yrs. General Exam Limitations: no limitations General appearance: alert, in no apparent distress Head exam: Present: atraumatic, normocephalic Eye exam: Present: normal appearance. Absent: scleral icterus, conjunctival injection Neck exam: Present: normal inspection Respiratory exam: Present: normal lung sounds bilaterally. Absent: respiratory distress, wheezes, rales, rhonchi, stridor Cardiovascular Exam: Present: regular rate, normal rhythm, normal heart sounds. Absent: systolic murmur, diastolic murmur, rubs, gallop GI/Abdominal exam: Present: soft. Absent: distended, tenderness, guarding, rebound, rigid, mass Extremities exam: Present: normal inspection, normal capillary refill. Absent: pedal edema, calf tenderness Back exam: Present: normal inspection. Absent: CVA tenderness (R), CVA tenderness (L), vertebral tenderness Neurological exam: Present: alert Skin exam: Present: warm, dry, intact, normal color. Absent: rash Course Vital Signs 09/17/21 22:31 Temperature 98.1 F Pulse Rate 107 H Respiratory 16 Rate Blood Pressure 147/93 O2 Sat by Pulse 96 Oximetry EKG Findings - EKG Results: EKG: sinus rhythm (Rate 98 bpm), normal axis, normal ST/T - Blocks, [place], Hypertrophy, ST Abn: AV and intraventricular conduction: right bundle branch block (fixed/intermittent, complete/incomplete) (Incomplete) Medical Decision Making - Lab Data Result diagrams: 09/17/21 22:48 09/17/21 22:48 Lab Results 09/17/21 09/17/21 09/17/21 Range/Units 22:48 22:48 22:48 WBC 8.9 (3.8-10.6) k/uL RBC 4.79 (4.30-5.90) m/uL Hgb 14.3 (13.0-17.5) gm/dL Hct 42.5 (39.0-53.0) % MCV 88.7 (80.0-100.0) fL MCH 29.9 (25.0-35.0) pg MCHC 33.6 (31.0-37.0) g/dL RDW 13.5 (11.5-15.5) % Plt Count 303 (150-450) k/uL MPV 7.2 Neutrophils % 61 % Lymphocytes % 28 % Monocytes % 7 % Eosinophils % 2 % Basophils % 1 % Neutrophils # 5.4 (1.3-7.7) k/uL Lymphocytes # 2.5 (1.0-4.8) k/uL Monocytes # 0.6 (0-1.0) k/uL Eosinophils # 0.2 (0-0.7) k/uL Basophils # 0.1 (0-0.2) k/uL PT 11.0 (9.0-12.0) sec INR 1.0 (<1.2) APTT 26.3 (22.0-30.0) sec Sodium 139 (137-145) mmol/L Potassium 3.7 (3.5-5.1) mmol/L Chloride 105 (98-107) mmol/L Carbon Dioxide 24 (22-30) mmol/L Anion Gap 10 mmol/L BUN 14 (9-20) mg/dL Creatinine 1.02 (0.66-1.25) mg/dL Est GFR (CKD-EPI)AfAm >90 (>60 ml/min/1.73 sqM) Est GFR (CKD-EPI)NonAf 80 (>60 ml/min/1.73 sqM) Glucose 134 H (74-99) mg/dL Calcium 9.2 (8.4-10.2) mg/dL Magnesium 1.8 (1.6-2.3) mg/dL Total Bilirubin 0.4 (0.2-1.3) mg/dL AST 23 (17-59) U/L ALT 16 (4-49) U/L Alkaline Phosphatase 94 (38-126) U/L Troponin I (0.000-0.034) ng/mL Total Protein 7.6 (6.3-8.2) g/dL Albumin 4.7 (3.5-5.0) g/dL 09/17/21 Range/Units 22:48 WBC (3.8-10.6) k/uL RBC (4.30-5.90) m/uL Hgb (13.0-17.5) gm/dL Hct (39.0-53.0) % MCV (80.0-100.0) fL MCH (25.0-35.0) pg MCHC (31.0-37.0) g/dL RDW (11.5-15.5) % Plt Count (150-450) k/uL MPV Neutrophils % % Lymphocytes % % Monocytes % % Eosinophils % % Basophils % % Neutrophils # (1.3-7.7) k/uL Lymphocytes # (1.0-4.8) k/uL Monocytes # (0-1.0) k/uL Eosinophils # (0-0.7) k/uL Basophils # (0-0.2) k/uL PT (9.0-12.0) sec INR (<1.2) APTT (22.0-30.0) sec Sodium (137-145) mmol/L Potassium (3.5-5.1) mmol/L Chloride (98-107) mmol/L Carbon Dioxide (22-30) mmol/L Anion Gap mmol/L BUN (9-20) mg/dL Creatinine (0.66-1.25) mg/dL Est GFR (CKD-EPI)AfAm (>60 ml/min/1.73 sqM) Est GFR (CKD-EPI)NonAf (>60 ml/min/1.73 sqM) Glucose (74-99) mg/dL Calcium (8.4-10.2) mg/dL Magnesium (1.6-2.3) mg/dL Total Bilirubin (0.2-1.3) mg/dL AST (17-59) U/L ALT (4-49) U/L Alkaline Phosphatase (38-126) U/L Troponin I <0.012 (0.000-0.034) ng/mL Total Protein (6.3-8.2) g/dL Albumin (3.5-5.0) g/dL Disposition Clinical Impression: Chest pain Disposition: Left Against Medical Advice Condition: Fair Instructions (If sedation given, give patient instructions): Chest Pain (ED) Is patient prescribed a controlled substance at d/c from ED?: No Referrals: Rodrigo Bonilla MD [Primary Care Provider] - 1-2 days Time of Disposition: 02:00
--- NOTE | 2021-09-18 01:40 | XR ---
EXAM: XR Chest, 2 Views CLINICAL HISTORY: ITS.REASON XR Reason: Chest Pain TECHNIQUE: Frontal and lateral views of the chest. COMPARISON: Comparison made to prior chest x-ray from January 08, 2021. FINDINGS: Lungs: Mild to moderate peribronchial thickening of the central bronchi. No consolidation. Pleural space: Unremarkable. No pneumothorax. Heart: Unremarkable. No cardiomegaly. Mediastinum: Unremarkable. Bones/joints: Unremarkable. IMPRESSION: Findings concerning for bronchitis, which may be of infectious or inflammatory etiologies. No consolidation.
[2021-09-18 02:11] VITALS: BP 134/87; PULSE 77; RESP 18
== END 2021-09-18 02:13 | disposition left against medical advice (07) ==
LOC: EC 22:24
DX: R07.89 Other chest pain (principal); E78.5 Hyperlipidemia, unspecified; K21.9 Gastro-esophageal reflux disease without esophagitis; Z79.83 Long term (current) use of bisphosphonates; Z87.891 Personal history of nicotine dependence; Z82.49 Family history of ischemic heart disease and other diseases of the circulatory system; Z88.6 Allergy status to analgesic agent
CPT/HCPCS: 36415; 71046; 80053; 83735; 84484; 85025; 85610; 85730; 93005; 99285

== ENCOUNTER → 2021-10-01 | Outpatient (CLI) | payer OTHER ==
--- NOTE | 2021-10-01 15:49 | US ---
EXAMINATION TYPE: US carotid duplex BILAT DATE OF EXAM: 10/01/2021 COMPARISON: NONE CLINICAL HISTORY: I70.213 ATHSCL [place] ARTERIES OF EXTRM [facility]. EXAM MEASUREMENTS: RIGHT: Peak Systolic Velocity (PSV) cm/sec ----- Right CCA: 59.0 ----- Right ICA: 70.3 ----- Right ECA: 68.6 ICA/CCA ratio: 1.2 RIGHT: End Diastole cm/sec ----- Right CCA: 23.2 ----- Right ICA: 29.3 ----- Right ECA: 18.0 LEFT: Peak Systolic Velocity (PSV) cm/sec ----- Left CCA: 63.7 ----- Left ICA: 58.8 ----- Left ECA: 55.7 ICA/CCA ratio: 0.9 LEFT: End Diastole cm/sec ----- Left CCA: 19.0 ----- Left ICA: 24.6 ----- Left ECA: 12.9 VERTEBRALS (direction of flow): Right Vertebral: Antegrade Left Vertebral: Antegrade Rhythm: Normal Mild atherosclerotic changes and intimal thickening with no significant velocity increases. IMPRESSION: 1. Atherosclerotic plaquing without significant flow-limiting stenosis. Criteria for Assigning % of Stenosis / Diameter reduction (Estimation based on the indirect measurements of the internal carotid artery velocities (ICA PSV). 1. Normal (no stenosis)=ICA PSV < 125 cm/s: ratio < 2.0: ICA EDV<40 cm/s. 2. Less than 50% stenosis=ICA PSV < 125 cm/s: ratio < 2.0: ICA EDV<40 cm/s. 3. 50 to 69% stenosis=ICA PSV of 125 to 230 cm/s: ration 2.0 ? 4.0: ICA EDV 40-100 cm/s. 4. Greater than 70% stenosis to near occlusion= ICA PSV > 230 cm/s: ratio > 4.0: ICA EDV > 100 cm/s. 5. Near occlusion= ICA PSV velocities may be low or undetectable: variable ratio and ICA EDV. 6. Total occlusion=unable to detect flow.
--- NOTE | 2021-10-03 09:54 | US ---
EXAMINATION TYPE: US arterial LE single level DATE OF EXAM: 10/01/2021 10:48 AM CLINICAL HISTORY: I70.213 ATHSCL [place] ARTERIES OF EXTRM W [facility]. Doppler Waveforms: Right: Multiphasic Left: Multiphasic Pulse Volume Recording: Pressure Gradients: Ankle-Brachial Indices: Right: 1.18 Left: 1.17 Toe Brachial Indices: Right: 1.02 Left: 0.94 IMPRESSION: UNRULY within normal limits
== END | disposition home or self-care (01) ==
LOC: RADUSWWP 09:49
PROVIDERS: ATTEND Family Medicine
DX: I65.23 Occlusion and stenosis of bilateral carotid arteries (principal)
CPT/HCPCS: 93880; 93922

== ENCOUNTER 2022-01-09 10:37 | Emergency (ER) | payer OTHER ==
[2022-01-09 10:50] VITALS: RESP 16; TEMP 98.5
--- NOTE | 2022-01-09 11:21 | ED ---
General Adult HPI - General Chief complaint: Dizziness Stated complaint: Nausea Time Seen by Provider: 01/09/22 10:51 Source: patient Mode of arrival: EMS Limitations: no limitations - History of Present Illness Initial comments: Patient is a 61-year-old male brought into the emergency room via EMS after a dizzy spell at work resulted in some unsteadiness in his gait temp early. He denies any loss of consciousness or fall. He reports that he has been having intermittent bouts of dizziness ongoing for several years and is following with multiple specialists including neurology ENT and rheumatology regarding his symptoms. He reports that he has had soft tissue swelling in the posterior occipital region for several years and the swelling seems to be getting worse causing him to have pain often. He is established with pain management and is on Percocet for pain control. He denies any dizziness at this time, changes and chronic head and neck pain, chest pain, shortness breath, abdominal pain, nausea, vomiting, focal neurological deficit, fevers or chills. in addition to the above stated past medical issues he has a past medical his tory significant for CAD, GERD, hyperlipidemia, hypertension, chronic cervical and lower back pain; he has previously been told he possibly has his Sjogren's syndrome but is still following with rheumatology regarding this diagnosis. - Related Data Home Medications Medication Instructions Recorded Confirmed oxyCODONE-APAP 10-325MG [Percocet 1 tab PO Q6H 08/24/13 11/26/21 10-325 mg] Aspirin EC [Ecotrin Low Dose] 81 mg PO DAILY 03/23/18 11/26/21 Atorvastatin [Lipitor] 40 mg PO HS 03/23/18 11/26/21 Nitroglycerin Sl Tabs [Nitrostat] 0.4 mg PO Q5M PRN 03/31/19 11/26/21 ALPRAZolam [Xanax] 0.25 mg PO DAILY PRN 01/09/22 01/09/22 Albuterol Inhaler [Ventolin Hfa 1 - 2 puff INHALATION RT-Q6H PRN 01/09/22 01/09/22 Inhaler] Labetalol [Trandate] 100 mg PO TID 01/09/22 01/09/22 Linaclotide [Linzess] 72 mcg PO Q48H 01/09/22 01/09/22 Rivaroxaban [Xarelto] 2.5 mg PO BID 01/09/22 01/09/22 Allergies Allergy/AdvReac Type Severity Reaction Status Date / Time morphine AdvReac Rash/Hives Verified 01/09/22 13:01 Review of Systems ROS Statement: Those systems with pertinent positive or pertinent negative responses have been documented in the HPI. ROS Other: All systems not noted in ROS Statement are negative. Past Medical History Past Medical History: Coronary Artery Disease (CAD), Chest Pain / Angina, GERD/Reflux, Hyperlipidemia, Hypertension, Musculoskeletal Disorder Additional Past Medical History / Comment(s): chronic cervical and lower back pain, bronchitis. History of Any Multi-Drug Resistant Organisms: None Reported Past Surgical History: No Surgical Hx Reported, Heart Catheterization With Stent Additional Past Surgical History / Comment(s): PCI with stent at [facility] April,, pain clinic procedures, cyst lanced on R shoulder - 2016 Past Anesthesia/Blood Transfusion Reactions: No Reported Reaction Date of Last Stent Placement:: April 2017 Past Psychological History: No Psychological Hx Reported Smoking Status: Former smoker - Past Family History Mother Family Medical History: Coronary Artery Disease (CAD), Diabetes Mellitus Additional Family Medical History / Comment(s): Mother is . She had 3 vessel CABG Sister(s) Family Medical History: Coronary Artery Disease (CAD), Vascular Disorder Additional Family Medical History / Comment(s): Sister had CABG-3 vessel. She at the age of 56yrs which pt believes had to do with her blood thinners and a brain anuerysm. Father Family Medical History: Myocardial Infarction (VT) Additional Family Medical History / Comment(s): Father of a massive VT at the age of 65yrs. General Exam Limitations: no limitations General appearance: alert, in no apparent distress Head exam: Present: atraumatic, normal inspection Expanded Head exam: Present: other ( slight soft tissue swelling in generalized tenderness to the occipital lobe). Absent: laceration, abrasion, contusion, hematoma, tenderness of temporal artery Eye exam: Present: normal appearance, PERRL, EOMI. Absent: scleral icterus, conjunctival injection, periorbital swelling Expanded Ear exam: Present: normal external inspection TM/Canal exam: Cerumen Impaction: Right TM (mild) Mouth exam: Present: normal external inspection Throat exam: tonsillomegaly Neck exam: Present: normal inspection, tenderness Respiratory exam: Present: normal lung sounds bilaterally. Absent: respiratory distress, wheezes, rales, rhonchi, stridor Cardiovascular Exam: Present: regular rate, normal rhythm, normal heart sounds. Absent: systolic murmur, diastolic murmur, rubs, gallop, clicks GI/Abdominal exam: Present: soft, normal bowel sounds, other (Rounded). Absent: distended, tenderness, guarding, rebound, rigid Rectal exam: Present: deferred Extremities exam: Present: normal inspection. Absent: pedal edema, joint swelling Back exam: Present: normal inspection Neurological exam: Present: alert, oriented X3, CN II-XII intact Psychiatric exam: Present: normal affect, normal mood Skin exam: Present: warm, dry, intact, normal color. Absent: rash Course Vital Signs 01/09/22 01/09/22 01/09/22 10:46 11:07 12:06 Temperature 98.5 F Pulse Rate 68 68 85 Respiratory 16 16 16 Rate Blood Pressure 167/104 164/104 160/105 O2 Sat by Pulse 95 98 98 Oximetry 01/09/22 12:49 Temperature Pulse Rate 64 Respiratory 16 Rate Blood Pressure 168/97 O2 Sat by Pulse 100 Oximetry Medical Decision Making - Medical Decision Making 7-year-old male presenting to the emergency room via EMS for transient unsteady gait along with episode of dizziness now improved with persistent posterior occipital lobe soft tissue swelling. symptoms ongoing for approximately 3 years with intermittent episodes. Due to age and risk factors will check CT of the brain and cervical spine along with EKG CBC and CMP will defer further laboratory studies are other diagnostic imaging at this time. Carotid Dopplers completed in September 2021 which revealed no atherosclerotic concerns. CT of the cervical spine and brain without acute abnormalities. CBC without abnormalities. CMP normal with the exception of slightly elevated glucose at 10 0. No indication for further diagnostic imaging or laboratory studies. Patient feels well at this time without any dizziness or lightheadedness. No neurological deficits. Will discharge home with follow-up with his specialist. Case discussed with Dr. Cornelius. - Lab Data Result diagrams: 01/09/22 11:07 01/09/22 11:07 Lab Results 01/09/22 01/09/22 Range/Units 11:07 11:07 WBC 6.7 (3.8-10.6) k/uL RBC 4.74 (4.30-5.90) m/uL Hgb 14.1 (13.0-17.5) gm/dL Hct 40.7 (39.0-53.0) % MCV 85.8 (80.0-100.0) fL MCH 29.8 (25.0-35.0) pg MCHC 34.7 (31.0-37.0) g/dL RDW 12.9 (11.5-15.5) % Plt Count 246 (150-450) k/uL MPV 7.7 Neutrophils % 63 % Lymphocytes % 22 % Monocytes % 7 % Eosinophils % 5 % Basophils % 1 % Neutrophils # 4.2 (1.3-7.7) k/uL Lymphocytes # 1.5 (1.0-4.8) k/uL Monocytes # 0.5 (0-1.0) k/uL Eosinophils # 0.3 (0-0.7) k/uL Basophils # 0.1 (0-0.2) k/uL Sodium 138 (137-145) mmol/L Potassium 4.4 (3.5-5.1) mmol/L Chloride 102 (98-107) mmol/L Carbon Dioxide 26 (22-30) mmol/L Anion Gap 10 mmol/L BUN 9 (9-20) mg/dL Creatinine 0.80 (0.66-1.25) mg/dL Est GFR (CKD-EPI)AfAm >90 (>60 ml/min/1.73 sqM) Est GFR (CKD-EPI)NonAf >90 (>60 ml/min/1.73 sqM) Glucose 100 H (74-99) mg/dL Calcium 9.1 (8.4-10.2) mg/dL Total Bilirubin 0.8 (0.2-1.3) mg/dL AST 25 (17-59) U/L ALT 15 (4-49) U/L Alkaline Phosphatase 98 (38-126) U/L Total Protein 7.2 (6.3-8.2) g/dL Albumin 4.6 (3.5-5.0) g/dL - EKG Data EKG Comments: Sinus rhythm, ventricular rate 60 bpm, CA interval 181 ms, QRS duration 105 ms, QT/QTC 398/399 ms, PRT axes 6, 10, 20 Disposition Clinical Impression: Dizziness, Near syncope Disposition: HOME SELF-CARE Condition: Stable Instructions (If sedation given, give patient instructions): Near Syncope (ED), Dizziness (ED) Additional Instructions: Please stay well hydrated. Continue to follow-up with your specialists including neurology, ENT and dermatology. Please also follow-up with your primary care provider. Please return to the Emergency Department if symptoms worsen or any other concerns. Is patient prescribed a controlled substance at d/c from ED?: No Referrals: Bárbara Cedeno NPC [Primary Care Provider] - 1-2 days Time of Disposition: 12:47
[2022-01-09 11:54] LABS: Basophils # (A) 0.1 k/uL (0-0.2); Basophils % (A) 1 %; Eosinophils # (A) 0.3 k/uL (0-0.7); Eosinophils % (A) 5 %; HCT 40.7 % (39.0-53.0); HGB 14.1 gm/dL (13.0-17.5); Lymphocytes # (A) 1.5 k/uL (1.0-4.8); Lymphocytes % (A) 22 %; MCH 29.8 pg (25.0-35.0); MCHC 34.7 g/dL (31.0-37.0); MCV 85.8 fL (80.0-100.0); Mean Platelet Volume 7.7; Monocytes # (A) 0.5 k/uL (0-1.0); Monocytes % (A) 7 %; Neutrophils # (A) 4.2 k/uL (1.3-7.7); Neutrophils % (A) 63 %; Platelet Count 246 k/uL (150-450); RBC 4.74 m/uL (4.30-5.90); RDW 12.9 % (11.5-15.5); WBC 6.7 k/uL (3.8-10.6)
--- NOTE | 2022-01-09 11:56 | CT ---
EXAMINATION TYPE: CT brain cspine wo con CT DLP: 1881.4 mGycm, Automated exposure control for dose reduction was used. DATE OF EXAM: 01/09/2022 11:38 AM COMPARISON: CT brain 01/08/2021, MRI brain 07/26/2020. CLINICAL INDICATION:Male, 61 years old with history of dizziness/ posterior occipital region swelling ; c/o dizziness, neck swelling, near syncope TECHNIQUE: Brain: Multiple axial CT images of the brain were obtained without IV contrast. Cspine: Axial CT images from the skull base to the inferior aspect of T2 we obtained without intraven ous contrast. Coronal and sagittal reformatted images were also reviewed. FINDINGS: Brain: Extra-axial spaces: No abnormal extra-axial fluid collections. Ventricular system: Within normal limits Cerebral parenchyma: No acute intraparenchymal hemorrhage or mass effect. The osorio-white junction is well differentiated. Mild cerebral volume loss. Cerebellum: Unremarkable. Mass effect: No evidence of midline shift. Intracranial vasculature: Atherosclerotic calcifications of the intracranial vessels. Soft tissues: Normal. Calvarium/osseous structures: No depressed skull fracture. Paranasal sinuses and mastoid air cells: Minimal mucosal thickening of the left maxillary sinus. The mastoid air cells are clear. Visualized orbits: Orbital contents are intact. Cervical spine: Fracture: None. Osseous structures: Multilevel degenerative disc disease changes with endplate spurring and disc oste ophyte complex's. Vertebral alignment: Within normal limits. Spinal canal/Neural Foramina: No evidence of significant spinal canal narrowing. No evidence for sign ificant neural foraminal stenosis. Neck soft tissues: Prevertebral soft tissues are within normal limits. Other: The airway is patent. The lung apices are clear. IMPRESSION: 1. No acute intracranial process. 2. No evidence of cervical spine fracture. 3. Mild multilevel degenerative disc disease.
[2022-01-09 12:07] LABS: Glucose 100 mg/dL (74-99); Total Protein 7.2 g/dL (6.3-8.2)
[2022-01-09 12:08] LABS: ALT 15 U/L (4-49); AST 25 U/L (17-59); African American GFR (CKD) >90 (>60 ml/min/1.73 sqM); Albumin 4.6 g/dL (3.5-5.0); Alkaline Phosphatase 98 U/L (38-126); Anion Gap 10 mmol/L; Blood Urea Nitrogen 9 mg/dL (9-20); Calcium 9.1 mg/dL (8.4-10.2); Carbon Dioxide 26 mmol/L (22-30); Chloride 102 mmol/L (98-107); Non-African American GFR(CKD) >90 (>60 ml/min/1.73 sqM); Potassium 4.4 mmol/L (3.5-5.1); Sodium 138 mmol/L (137-145); Total Bilirubin 0.8 mg/dL (0.2-1.3)
[2022-01-09 12:50] VITALS: BP 168/97; PULSE 64
== END 2022-01-09 13:06 | disposition home or self-care (01) ==
LOC: EC 10:37
DX: R55 Syncope and collapse (principal); I25.10 Atherosclerotic heart disease of native coronary artery without angina pectoris; E78.5 Hyperlipidemia, unspecified; I10 Essential (primary) hypertension; Z87.891 Personal history of nicotine dependence; Z79.82 Long term (current) use of aspirin; Z79.01 Long term (current) use of anticoagulants; Z79.899 Other long term (current) drug therapy; Z88.6 Allergy status to analgesic agent
CPT/HCPCS: 36415; 70450; 72125; 80053; 85025; 93005; 99284

== ENCOUNTER 2022-02-17 11:30 | Emergency (ER) | payer OTHER ==
--- NOTE | 2022-02-17 12:34 | ED ---
Dizziness HPI - General Chief Complaint: Dizziness Stated Complaint: anxiety Time Seen by Provider: 02/17/22 11:30 Source: patient, RN notes reviewed Mode of arrival: ambulatory Limitations: no limitations - History of Present Illness Initial Comments: 7-year-old male with a history of anxiety also history of vertigo in the past a history of cardiac disease with stent who was brought in from work today by EMS with complaints of the bleeding to be an anxiety problem. He feels short of breath dizzy. He has several episodes of dizziness in fact he states 4-5 episodes. He had shortness of breath with it and some belching. He states she's feeling much better now but initially he did take Xanax with didn't seem to help at work but now it appears that has started to take effect. He has no dizziness. He denied any palpitations fevers chills sweats chest pain or other symptoms. MD Complaint: dizziness, lightheadedness, other - Related Data Home Medications Medication Instructions Recorded Confirmed oxyCODONE-APAP 10-325MG [Percocet 1 tab PO Q6H 08/24/13 01/09/22 10-325 mg] Aspirin EC [Ecotrin Low Dose] 81 mg PO DAILY 03/23/18 01/09/22 Atorvastatin [Lipitor] 40 mg PO HS 03/23/18 01/09/22 Nitroglycerin Sl Tabs [Nitrostat] 0.4 mg PO Q5M PRN 03/31/19 01/09/22 ALPRAZolam [Xanax] 0.25 mg PO DAILY PRN 01/09/22 01/09/22 Albuterol Inhaler [Ventolin Hfa 1 - 2 puff INHALATION RT-Q6H PRN 01/09/22 01/09/22 Inhaler] Labetalol [Trandate] 100 mg PO TID 01/09/22 01/09/22 Linaclotide [Linzess] 72 mcg PO Q48H 01/09/22 01/09/22 Rivaroxaban [Xarelto] 2.5 mg PO BID 01/09/22 01/09/22 Previous Rx's Medication Instructions Recorded Meclizine [Antivert] 25 mg PO TID #20 tab 02/17/22 Allergies Allergy/AdvReac Type Severity Reaction Status Date / Time morphine AdvReac Rash/Hives Verified 02/17/22 11:43 Review of Systems ROS Statement: Those systems with pertinent positive or pertinent negative responses have been documented in the HPI. ROS Other: All systems not noted in ROS Statement are negative. Past Medical History Past Medical History: Coronary Artery Disease (CAD), Chest Pain / Angina, GERD/Reflux, Hyperlipidemia, Hypertension, Musculoskeletal Disorder Additional Past Medical History / Comment(s): Recent r knee skin infection tx with antibiotic-pt states not getting much better, chronic cervical and lower back pain, bronchitis. History of Any Multi-Drug Resistant Organisms: None Reported Past Surgical History: No Surgical Hx Reported, Heart Catheterization With Stent Additional Past Surgical History / Comment(s): PCI with stent at [facility] April,, pain clinic procedures, cyst lanced on R shoulder - 2016 Past Anesthesia/Blood Transfusion Reactions: No Reported Reaction Date of Last Stent Placement:: April 2017 Past Psychological History: Anxiety Smoking Status: Former smoker Past Alcohol Use History: None Reported Past Drug Use History: None Reported - Past Family History Mother Family Medical History: Coronary Artery Disease (CAD), Diabetes Mellitus Additional Family Medical History / Comment(s): Mother is . She had 3 vessel CABG Sister(s) Family Medical History: Coronary Artery Disease (CAD), Vascular Disorder Additional Family Medical History / Comment(s): Sister had CABG-3 vessel. She at the age of 56yrs which pt believes had to do with her blood thinners and a brain anuerysm. Father Family Medical History: Myocardial Infarction (W[place]) Additional Family Medical History / Comment(s): Father of a massive [place] at the age of 65yrs. General Exam - General Exam Comments Initial Comments: This is a well-developed well-nourished awake alert oriented 4 male Limitations: no limitations General appearance: alert, anxious Head exam: Present: atraumatic, normocephalic, normal inspection Eye exam: Present: normal appearance, PERRL, EOMI. Absent: scleral icterus, conjunctival injection, periorbital swelling ENT exam: Present: normal exam, mucous membranes moist Neck exam: Present: normal inspection, full ROM, other (No stridor JVD or bruits). Absent: tenderness, meningismus, lymphadenopathy Respiratory exam: Present: normal lung sounds bilaterally. Absent: respiratory distress, wheezes, rales, rhonchi, stridor Cardiovascular Exam: Present: regular rate, normal rhythm, normal heart sounds. Absent: systolic murmur, diastolic murmur, rubs, gallop, clicks GI/Abdominal exam: Present: soft, normal bowel sounds. Absent: distended, tenderness, guarding, rebound, rigid, bruit, pulsatile mass Extremities exam: Present: normal inspection, full ROM, normal capillary refill. Absent: tenderness, pedal edema, joint swelling, calf tenderness Back exam: Present: normal inspection Neurological exam: Present: alert, oriented X3, CN II-XII intact Psychiatric exam: Present: normal affect, normal mood Skin exam: Present: warm, dry, intact, normal color. Absent: rash Course Vital Signs 02/17/22 02/17/22 11:39 12:55 Temperature 98 F Pulse Rate 82 71 Respiratory 18 17 Rate Blood Pressure 147/95 151/89 O2 Sat by Pulse 98 98 Oximetry EKG Findings - EKG Results: EKG: interpreted by ERMD, WNL, sinus rhythm, normal axis, normal QRS, normal ST/T, no acute changes (EKG read by me, normal sinus rhythm a 71. Interval 172 QRS duration 108 QT since QTC 393/4:[address]-T wave changes.) Medical Decision Making - Medical Decision Making I did a long discussion with patient regarding the findings the presentation appears be consistent with a vertiginous episode. Patient is asymptomatic this time he will be discharged home. He'll be placed on Antivert as needed. He is a follow-up with his doctor return when necessary - Lab Data Result diagrams: 02/17/22 12:54 02/17/22 12:54 Lab Results 02/17/22 02/17/22 02/17/22 Range/Units 12:54 12:54 12:54 WBC 6.6 (3.8-10.6) k/uL RBC 4.69 (4.30-5.90) m/uL Hgb 14.4 (13.0-17.5) gm/dL Hct 40.9 (39.0-53.0) % MCV 87.3 (80.0-100.0) fL MCH 30.8 (25.0-35.0) pg MCHC 35.3 (31.0-37.0) g/dL RDW 12.8 (11.5-15.5) % Plt Count 268 (150-450) k/uL MPV 8.0 Neutrophils % 55 % Lymphocytes % 26 % Monocytes % 7 % Eosinophils % 8 % Basophils % 1 % Neutrophils # 3.6 (1.3-7.7) k/uL Lymphocytes # 1.7 (1.0-4.8) k/uL Monocytes # 0.5 (0-1.0) k/uL Eosinophils # 0.5 (0-0.7) k/uL Basophils # 0.1 (0-0.2) k/uL Sodium 139 (137-145) mmol/L Potassium 4.2 (3.5-5.1) mmol/L Chloride 106 (98-107) mmol/L Carbon Dioxide 27 (22-30) mmol/L Anion Gap 6 mmol/L BUN 7 L (9-20) mg/dL Creatinine 0.75 (0.66-1.25) mg/dL Est GFR (CKD-EPI)AfAm >90 (>60 ml/min/1.73 sqM) Est GFR (CKD-EPI)NonAf >90 (>60 ml/min/1.73 sqM) Glucose 102 H (74-99) mg/dL Calcium 8.9 (8.4-10.2) mg/dL Magnesium 1.9 (1.6-2.3) mg/dL Total Bilirubin 0.5 (0.2-1.3) mg/dL AST 23 (17-59) U/L ALT 16 (4-49) U/L Alkaline Phosphatase 109 (38-126) U/L Creatine Kinase 141 (55-170) U/L Troponin I <0.012 (0.000-0.034) ng/mL Total Protein 7.1 (6.3-8.2) g/dL Albumin 4.5 (3.5-5.0) g/dL - Radiology Data Radiology results: image reviewed (I did review the imaging no acute processes are identified.) Disposition Clinical Impression: Benign paroxysmal vertigo Disposition: HOME SELF-CARE Condition: Good Instructions (If sedation given, give patient instructions): Dizziness (ED) Prescriptions: Meclizine [Antivert] 25 mg PO TID #20 tab Is patient prescribed a controlled substance at d/c from ED?: No Referrals: Brent Dasilva MD [Primary Care Provider] - 1-2 days
[2022-02-17 13:10] LABS: Basophils # (A) 0.1 k/uL (0-0.2); Basophils % (A) 1 %; Eosinophils # (A) 0.5 k/uL (0-0.7); Eosinophils % (A) 8 %; HCT 40.9 % (39.0-53.0); HGB 14.4 gm/dL (13.0-17.5); Lymphocytes # (A) 1.7 k/uL (1.0-4.8); Lymphocytes % (A) 26 %; MCH 30.8 pg (25.0-35.0); MCHC 35.3 g/dL (31.0-37.0); MCV 87.3 fL (80.0-100.0); Monocytes # (A) 0.5 k/uL (0-1.0); Monocytes % (A) 7 %; Neutrophils # (A) 3.6 k/uL (1.3-7.7); Neutrophils % (A) 55 %; Platelet Count 268 k/uL (150-450); RBC 4.69 m/uL (4.30-5.90); RDW 12.8 % (11.5-15.5); WBC 6.6 k/uL (3.8-10.6)
--- NOTE | 2022-02-17 13:15 | XR ---
EXAMINATION TYPE: XR chest 2V DATE OF EXAM: 02/17/2022 1:11 PM COMPARISON: Chest radiographs from 09/18/2021 TECHNIQUE: XR chest 2V Frontal and lateral views of the chest. CLINICAL INDICATION:Male, 61 years old with history of Dizziness; FINDINGS: Lungs/Pleura: There is no evidence of pleural effusion, focal consolidation, or pneumothorax. Pulmonary vascularity: Unremarkable. Heart/mediastinum: Cardiomediastinal silhouette is unremarkable. Musculoskeletal: Multiple level degenerative disc disease changes seen throughout the spine. IMPRESSION: No acute cardiopulmonary disease/process.
[2022-02-17 13:16] LABS: ALT 16 U/L (4-49); AST 23 U/L (17-59); African American GFR (CKD) >90 (>60 ml/min/1.73 sqM); Albumin 4.5 g/dL (3.5-5.0); Alkaline Phosphatase 109 U/L (38-126); Anion Gap 6 mmol/L; Blood Urea Nitrogen 7 mg/dL (9-20); Calcium 8.9 mg/dL (8.4-10.2); Carbon Dioxide 27 mmol/L (22-30); Chloride 106 mmol/L (98-107); Creatine Kinase 141 U/L (55-170); Glucose 102 mg/dL (74-99); Magnesium 1.9 mg/dL (1.6-2.3); Non-African American GFR(CKD) >90 (>60 ml/min/1.73 sqM); Potassium 4.2 mmol/L (3.5-5.1); Sodium 139 mmol/L (137-145); Total Bilirubin 0.5 mg/dL (0.2-1.3); Total Protein 7.1 g/dL (6.3-8.2)
--- NOTE | 2022-02-17 14:10 | ED ---
Medical Decision Making - Lab Data Result diagrams: 02/17/22 12:54 02/17/22 12:54 Lab Results 02/17/22 02/17/22 02/17/22 Range/Units 12:54 12:54 12:54 WBC 6.6 (3.8-10.6) k/uL RBC 4.69 (4.30-5.90) m/uL Hgb 14.4 (13.0-17.5) gm/dL Hct 40.9 (39.0-53.0) % MCV 87.3 (80.0-100.0) fL MCH 30.8 (25.0-35.0) pg MCHC 35.3 (31.0-37.0) g/dL RDW 12.8 (11.5-15.5) % Plt Count 268 (150-450) k/uL MPV 8.0 Neutrophils % 55 % Lymphocytes % 26 % Monocytes % 7 % Eosinophils % 8 % Basophils % 1 % Neutrophils # 3.6 (1.3-7.7) k/uL Lymphocytes # 1.7 (1.0-4.8) k/uL Monocytes # 0.5 (0-1.0) k/uL Eosinophils # 0.5 (0-0.7) k/uL Basophils # 0.1 (0-0.2) k/uL Sodium 139 (137-145) mmol/L Potassium 4.2 (3.5-5.1) mmol/L Chloride 106 (98-107) mmol/L Carbon Dioxide 27 (22-30) mmol/L Anion Gap 6 mmol/L BUN 7 L (9-20) mg/dL Creatinine 0.75 (0.66-1.25) mg/dL Est GFR (CKD-EPI)AfAm >90 (>60 ml/min/1.73 sqM) Est GFR (CKD-EPI)NonAf >90 (>60 ml/min/1.73 sqM) Glucose 102 H (74-99) mg/dL Calcium 8.9 (8.4-10.2) mg/dL Magnesium 1.9 (1.6-2.3) mg/dL Total Bilirubin 0.5 (0.2-1.3) mg/dL AST 23 (17-59) U/L ALT 16 (4-49) U/L Alkaline Phosphatase 109 (38-126) U/L Creatine Kinase 141 (55-170) U/L Troponin I <0.012 (0.000-0.034) ng/mL Total Protein 7.1 (6.3-8.2) g/dL Albumin 4.5 (3.5-5.0) g/dL Disposition Clinical Impression: Benign paroxysmal vertigo Disposition: HOME SELF-CARE Condition: Good Instructions (If sedation given, give patient instructions): Dizziness (ED) Prescriptions: Meclizine [Antivert] 25 mg PO TID #20 tab Is patient prescribed a controlled substance at d/c from ED?: No Referrals: Brent Dasilva MD [Primary Care Provider] - 1-2 days Decision Date: 02/17/22 Decision Time: 14:10
[2022-02-17 14:27] VITALS: BP 150/91; PULSE 64; RESP 18; TEMP 98.5
== END 2022-02-17 14:41 | disposition home or self-care (01) ==
LOC: EC 11:30
DX: H81.10 Benign paroxysmal vertigo, unspecified ear (principal); I25.10 Atherosclerotic heart disease of native coronary artery without angina pectoris; K21.9 Gastro-esophageal reflux disease without esophagitis; E78.5 Hyperlipidemia, unspecified; I10 Essential (primary) hypertension; F41.9 Anxiety disorder, unspecified; Z87.891 Personal history of nicotine dependence; Z88.8 Allergy status to other drugs, medicaments and biological substances; Z79.82 Long term (current) use of aspirin; Z79.899 Other long term (current) drug therapy; Z79.51 Long term (current) use of inhaled steroids
CPT/HCPCS: 36415; 71046; 80053; 82550; 83735; 84484; 85025; 93005; 99284

== ENCOUNTER → 2022-07-06 | Outpatient (CLI) | payer OTHER ==
--- NOTE | 2022-07-06 09:53 | CT ---
EXAMINATION TYPE: CT soft tissue neck wo/w con DATE OF EXAM: 07/06/2022 COMPARISON: 03/15/2020 HISTORY: 61-year-old male R2 2.1, localized swelling, mass, lump in neck, Swollen lymph nodes TECHNIQUE: Contiguous axial scanning of the soft tissues of the neck performed without and with IV Co ntrast, patient injected with 70 mL of Isovue 300. Coronal/sagittal reconstructions performed. CT DLP: 1939.3 mGycm Automated exposure control for dose reduction was used. FINDINGS: Visualized intracranial structures, orbits and globes, paranasal sinuses, mastoid air cells appear cl ear. There is only trace mucosal thickening along the floor of the left maxillary sinus. Moderate hypertrophy of the bilateral palatine tonsils with punctate 2 mm calcification suggesting se quela of prior infection. Thickening appears slightly asymmetric now on the right within the area of 5 mm nodularity, axial image 77. Nasopharynx is clear. The epiglottis and prevertebral soft tissues are satisfactory. Glottic and subglottic structures as well as the tracheal column appears clear. Emphysematous change in the upper lungs. More of the lung parenchyma is included on the current exam. There is a 4 mm pulmonary nodule in the left upper lobe previously not included in the [id number] . Six-month follow-up CT chest can be performed to reassess this nodule and also to survey the remain hanna of the lungs. Thyroid and submandibular glands are satisfactory. Parotid glands bilaterally atrophic. Bilateral parotid space lymph nodes measuring up to 8 mm, left greater than right remain unchanged. A lymph node along the anterior midline submental region measuring 1 cm is unchanged. Left-sided posterior articular soft tissue measuring 1.7 x 0.7 cm remains unchanged, likely lymph nod e or some chronic scarring. Small posterior suboccipital lymph nodes measuring up to 4 mm are unchanged. Prominent bilateral station 2A lymph nodes remain unchanged measuring up to 1.5 cm on the right remai n unchanged. Palpable marker seen along the left lateral side of the upper neck. No discrete underlying suspicious mass is identified. Bones: Mild to moderate degenerative disc disease mid to lower cervical spine. IMPRESSION: 1. NUMEROUS SCATTERED LYMPH NODES THROUGHOUT THE NECK REMAIN UNCHANGED BACK TO 03/15/2020 SUGGESTING A BENIGN REACTIVE/POST INFLAMMATORY ETIOLOGY. THESE LYMPH NODES MEASURE UP TO 1.5 CM SHORT AXIS STATI ON 2A. NO SUSPICIOUS SOFT TISSUE MASS IDENTIFIED ALONG THE LATERAL LEFT UPPER NECK AT THE PALPABLE SI TE. 2. SIMILAR MODERATE HYPERTROPHY OF THE BILATERAL PALATINE TONSILS. HOWEVER, THICKENING APPEARS SLIGHT LY ASYMMETRIC NOW ON THE RIGHT WITH A 5 MM AREA OF NODULARITY. DIRECT VISUALIZATION TO EXCLUDE A SUBT LE MUCOSAL LESION. ALSO, CONSIDER 3-6 MONTH FOLLOW-UP CT TO REASSESS THIS REGION. 3. COPD WITH SMALL PULMONARY NODULES IN THE VISUALIZED UPPER LUNGS. LARGEST MEASURES 4 MM AND WAS PRE VIOUSLY NOT INCLUDED IN THE JPTOI-EB-PIRE. 6 MONTH FOLLOW-UP CT CHEST TO REASSESS AND ALSO TO SURVEY THE REMAINDER OF THE LUNGS.
== END | disposition home or self-care (01) ==
LOC: RADCTMAIN 07:01
PROVIDERS: ATTEND Family Medicine
DX: J44.9 Chronic obstructive pulmonary disease, unspecified (principal); J35.1 Hypertrophy of tonsils; R91.8 Other nonspecific abnormal finding of lung field; R22.1 Localized swelling, mass and lump, neck
CPT/HCPCS: 70492; Q9967

== ENCOUNTER → 2023-01-11 | Outpatient (CLI) | payer OTHER ==
--- NOTE | 2023-01-11 15:58 | XR ---
EXAMINATION TYPE: XR cervical spine comp DATE OF EXAM: 01/11/2023 3:54 PM INDICATION: Patient age:Male; 62 years old; Reason for study: M54.2; [facility]. COMPARISON: CT soft tissue neck 07/06/2022 3 C-spine 01/09/2022 TECHNIQUE: The cervical spine was imaged in frontal, lateral, bilateral oblique, odontoid, and swimme r's projections. FINDINGS: The osseous structures show normal alignment without evidence of an acute fracture. Multilevel disc s pace narrowing with endplate sclerosis and anterior osteophytosis. Bilateral neural foraminal stenosi s suggested at C5-C6 and C6-C7. Pedicles are intact. Soft tissues are within normal limits. The odon toid appears intact. IMPRESSION: 1. No fracture or dislocation. 2. Mild degenerative disc disease changes of the cervical spine.
== END | disposition home or self-care (01) ==
LOC: RADXRMAIN 15:27
PROVIDERS: ATTEND Family Medicine
DX: M50.30 Other cervical disc degeneration, unspecified cervical region (principal)
CPT/HCPCS: 72050

== ENCOUNTER → 2023-02-17 | Outpatient (CLI) | payer MEDICARE, OTHER ==
--- NOTE | 2023-02-18 19:20 | CT ---
EXAMINATION TYPE: CT soft tissue neck wo/w con DATE OF EXAM: 02/17/2023 COMPARISON: 07/06/2022 and 03/15/2020 HISTORY: 62-year-old male D49.1 NEOPLASM OF UNSPECIFIED BEHAVIOR OF, R93.89 enlarged lymph nodes TECHNIQUE: Contiguous axial scanning of the soft tissues of the neck performed without and with IV Co ntrast, patient injected with 100 mL of Isovue 300. Coronal/sagittal reconstructions performed. CT DLP: 1036 mGycm Automated exposure control for dose reduction was used. FINDINGS: Visualized intracranial structures show no gross abnormality. Visualized paranasal sinuses, orbits an d globes, and mastoid air cells appear clear. Stable prominent 1 cm left parotid space lymph node. Numerous scattered nonenlarged submandibular spa ce lymph nodes are unchanged. A borderline sized 1.4 cm right upper cervical lymph node is unchanged. A 1 cm submental space lymph node is unchanged. Additional numerous scattered nonenlarged lymph nodes on both sides of the neck. No suspicious enlarg ing lymphadenopathy is identified. The nasopharynx is clear. Mild bilateral palatine tonsillar hypertrophy with punctate calcifications suggesting sequela of prio r infection. Moderate lingual tonsillar hypertrophy may be slightly increased. Epiglottis and prevertebral soft tissues are satisfactory. Glottic and subglottic structures limited by some motion of the vocal cords. Tracheal column and visu alized apices show no gross abnormal mobility. Thyroid and salivary glands are satisfactory. Parotid glands are mildly atrophic. Mild spondylotic change lower cervical spine. IMPRESSION: 1. A FEW SCATTERED BORDERLINE SIZE LYMPH NODES WITHIN THE UPPER NECK MEASURING UP TO 1 CM LEFT PAROTI D SPACE AND 1.4 CM RIGHT UPPER NECK. 1 CM SUBMENTAL SPACE. NO SUSPICIOUS ENLARGING LYMPHADENOPATHY IS IDENTIFIED. 2. Similar hypertrophy of the bilateral palatine tonsils. The previous asymmetric nodularity on the r ight is no longer appreciated. There may be slight increasing moderate hypertrophy of the lingual ton sils.
--- NOTE | 2023-02-18 19:28 | CT ---
EXAMINATION TYPE: CT chest wo con DATE OF EXAM: 02/17/2023 COMPARISON: None HISTORY: [id number] male D49.1 NEOPLASM OF UNSPECIFIED BEHAVIOR OF ,R93.89, enlarged lymph nodes TECHNIQUE: Contiguous axial scanning of the chest without IV contrast. Coronal/sagittal reconstructio ns performed. CT DLP: 602mGycm. Automatic exposure control utilized for a dose reduction. FINDINGS: The heart is normal size without pericardial effusion. Three-vessel coronary artery calcifications ar e present and artery marker for coronary artery disease. Aneurysm aortic root at 4.2 cm. Ectatic proximal arch is 3.8 cm. Conventional arch vessel branching a natomy. Ectatic aorta at the thoracoabdominal junction and 2.9 cm. A few scattered nonenlarged and a couple borderline to mildly enlarged lymph nodes are present in the mediastinum. For example, measuring up to 1.3 cm lower right paratracheal and 1.2 cm subcarinal. Mild emphysematous change in the upper lungs. There also appears to be some subpleural reticular mejias ge throughout the upper and mid lungs and to a lesser degree at the lung bases suggesting some underl whit fibrosis. Numerous scattered pulmonary nodules are present. Most of these measure 5 mm or smaller. The largest measures 9 mm at the anteromedial right base. Three-month follow-up CT to reassess. No consolidation or pleural effusion. Visualized upper abdomen shows diffuse decreased attenuation of the hepatic parenchyma. Bones: Extensive DISH is present throughout the mid and lower thoracic spine with accentuated midthor acic kyphosis. IMPRESSION: 1. There is scattered mild interstitial fibrosis throughout the lungs. Background COPD with minimal e mphysema. 2. Numerous scattered pulmonary nodules most of which measure 5 mm or smaller. Largest measures 9 mm at the right base. Three-month follow-up CT to reassess. 3. A couple borderline to mildly enlarged mediastinal lymph nodes measuring up to 1.3 cm lower right paratracheal. Probably reactive/post inflammatory. Reassess of the patient's 3 month follow-up. 4. Aneurysmal aortic root at 4.2 cm. Coronary artery disease with three-vessel coronary calcificatio ns. 5. Severe hepatic steatosis. Appropriate clinical management advised. 6. Extensive DISH throughout the mid and lower thoracic spine.
== END | disposition home or self-care (01) ==
LOC: RADCTMAIN 12:13
PROVIDERS: ATTEND Psychiatry & Neurology Neurology
DX: D49.1 Neoplasm of unspecified behavior of respiratory system (principal); I71.9 Aortic aneurysm of unspecified site, without rupture; J84.10 Pulmonary fibrosis, unspecified; J35.1 Hypertrophy of tonsils; J43.9 Emphysema, unspecified; K76.0 Fatty (change of) liver, not elsewhere classified; I25.10 Atherosclerotic heart disease of native coronary artery without angina pectoris; M48.14 Ankylosing hyperostosis [Forestier], thoracic region; R91.8 Other nonspecific abnormal finding of lung field; R93.89 Abnormal findings on diagnostic imaging of other specified body structures; R59.0 Localized enlarged lymph nodes
CPT/HCPCS: 70492; 71250; Q9967

== ENCOUNTER → 2023-04-20 | Outpatient (CLI) | payer MEDICARE, OTHER ==
--- NOTE | 2023-04-20 13:02 | US ---
EXAMINATION TYPE: US carotid duplex BILAT DATE OF EXAM: 04/20/2023 COMPARISON: US 2021 CLINICAL INDICATION: Male, 62 years old with history of I71.9 AORTIC ANEURYSM OF UNSPECIFIED SITE, WO RUPT; TECHNIQUE: Carotid duplex ultrasound examination. Indirect Doppler criteria was utilized. FINDINGS: EXAM MEASUREMENTS: RIGHT: Peak Systolic Velocity (PSV) cm/sec ----- Right CCA: 89.4 ----- Right ICA: 86.8 ----- Right ECA: 148.0 ICA/CCA ratio: 1.0 RIGHT: End Diastole cm/sec ----- Right CCA: 22.3 ----- Right ICA: 28.0 ----- Right ECA: 27.2 LEFT: Peak Systolic Velocity (PSV) cm/sec ----- Left CCA: 85.0 ----- Left ICA: 79.1 ----- Left ECA: 171.0 ICA/CCA ratio: 0.9 LEFT: End Diastole cm/sec ----- Left CCA: 20.3 ----- Left ICA: 25.4 ----- Left ECA: 32.0 VERTEBRALS (direction of flow): Right Vertebral: Antegrade Left Vertebral: Antegrade Rhythm: Normal No significant stenosis IMPRESSION: Less than 50% stenosis of the bilateral carotid bifurcations. Criteria for Assigning % of Stenosis / Diameter reduction (Estimation based on the indirect measurements of the internal carotid artery velocities (ICA PSV). 1. Normal (no stenosis)=ICA PSV < 125 cm/s: ratio < 2.0: ICA EDV<40 cm/s. 2. Less than 50% stenosis=ICA PSV < 125 cm/s: ratio < 2.0: ICA EDV<40 cm/s. 3. 50 to 69% stenosis=ICA PSV of 125 to 230 cm/s: ration 2.0 ? 4.0: ICA EDV 40-100 cm/s. 4. Greater than 70% stenosis to near occlusion= ICA PSV > 230 cm/s: ratio > 4.0: ICA EDV > 100 cm/s. 5. Near occlusion= ICA PSV velocities may be low or undetectable: variable ratio and ICA EDV. 6. Total occlusion=unable to detect flow.
== END | disposition home or self-care (01) ==
LOC: RADUSWWP 11:52
PROVIDERS: ATTEND Family Medicine
DX: I65.23 Occlusion and stenosis of bilateral carotid arteries (principal); I71.9 Aortic aneurysm of unspecified site, without rupture
CPT/HCPCS: 93880

== ENCOUNTER → 2023-05-24 | Outpatient (CLI) | payer MEDICARE ==
--- NOTE | 2023-05-25 11:07 | XR ---
EXAMINATION TYPE: XR knee limited bilateral DATE OF EXAM: 05/24/2023 COMPARISON: NONE HISTORY: 62-year-old male chronic bilateral knee pain for 6 months. M25.561 PAIN IN RIGHT KNEE,M25.5 62 PAIN LEFT KNEE TECHNIQUE: 2 views each side FINDINGS: There is tricompartmental degenerative change on both sides. Moderate narrowing of cartilage and join t space within the bilateral medial compartments. [id number] left and small right knee joint e ffusions. Extensor mechanisms appear intact. No acute fracture, subluxation, or dislocation seen. IMPRESSION: 1. Tricompartmental osteoarthrosis. Moderate within the medial compartments. 2. Small to moderate left and small right knee joint effusions probably reactive. No acute osseous ab normality seen.
== END | disposition home or self-care (01) ==
LOC: RADXRMAIN 15:30
PROVIDERS: ATTEND Family Medicine
DX: M17.0 Bilateral primary osteoarthritis of knee (principal); M25.461 Effusion, right knee; M25.462 Effusion, left knee

== ENCOUNTER → 2023-05-27 | Outpatient (CLI) | payer OTHER ==
--- NOTE | 2023-05-29 15:00 | MR ---
EXAMINATION TYPE: MR cervical spine wo con DATE OF EXAM: 05/27/2023 3:36 PM CLINICAL INDICATION:Male, 62 years old with history of M50.30 cervical DISC DEGENERATION; COMPARISON: 05/11/2020, 05/24/2014. TECHNIQUE: Multi planar, multi sequence imaging was performed utilizing: T1-weighted, T2-weighted, an d turbo inversion recovery imaging of the cervical spine. IV Contrast: cc (none if empty) FINDINGS: Alignment: The cervical vertebral bodies have preserved heights. Alignment is within normal limits gi akash patient positioning. Bones: Bone signal is within normal limits. No abnormal bone marrow edema on inversion recovery seque nces. Cord: The spinal cord is unremarkable with regards to their signal intensity and morphology. Discs: Multilevel disc desiccation is present. C2-C3: No significant disc pathology. The spinal canal is patent. Bilateral facet and uncovertebral joint arthropathy are present with mild right neural foraminal stenosis. The left neural foramen is p atent. C3-C4: No significant disc pathology. The spinal canal is patent. Bilateral facet and uncovertebral joint arthropathy are present with mild bilateral neural foraminal stenosis. C4-C5: No significant disc pathology. The spinal canal is patent. Bilateral facet and uncovertebral joint arthropathy are present with moderate right neural foraminal stenosis. C5-C6: A disc osteophyte complex is present with mild spinal canal stenosis. Bilateral facet and unc overtebral joint arthropathy are present with moderate to severe bilateral neural foraminal stenosis. C6-C7: A disc osteophyte complex is present with mild spinal canal stenosis. Bilateral facet and unc overtebral joint arthropathy are present with moderate bilateral neural foraminal stenosis. C7-T1: No significant disc pathology. The spinal canal is patent. No neural foraminal stenosis. Other: None. IMPRESSION: 1. No evidence for disc herniation or significant spinal canal stenosis. 2. Mild to moderate disc degeneration with associated osteoarthritic changes. No neural foraminal alex nosis worse at C4-C5 with moderate right and C5-6 with moderate to severe bilateral as well as modera te bilateral C6-C7.
== END | disposition home or self-care (01) ==
LOC: RADMRIMAIN 14:36
PROVIDERS: ATTEND Family Medicine
DX: M47.812 Spondylosis without myelopathy or radiculopathy, cervical region (principal); M50.30 Other cervical disc degeneration, unspecified cervical region; M25.561 Pain in right knee; M25.562 Pain in left knee
CPT/HCPCS: 72141

== ENCOUNTER → 2023-08-24 | Outpatient (CLI) | payer OTHER ==
--- NOTE | 2023-08-24 16:19 | MR ---
EXAMINATION TYPE: MR lumbar spine wo con DATE OF EXAM: 08/24/2023 COMPARISON: None HISTORY: Lower back pain, BLE radiculopathy. CONTRAST: 0 mL intravenous Gadavist. TECHNIQUE: Multiplanar, multisequence images of the lumbar spine were acquired. FINDINGS: L5-S1: Broad-based disc bulge is present with epidural space impression. No thecal sac contact or dis tortion is evident. No contact with the exiting nerve roots is evident. No spinal canal stenosis. No foraminal stenosis. Disc desiccation is present. L4-L5: Facet hypertrophy is present. Ligamentum flavum laxity is present. Some disc bulge is present. Findings contribute to spinal canal stenosis at this level. L3-L4: Normal disc bulge is present with anterior thecal sac contact. No spinal canal stenosis presen t neural foramen are patent No spinal canal stenosis. No foraminal stenosis. L2-L3: No significant disc bulge or disc herniation. No spinal canal stenosis. No foraminal stenosi s. L1-L2: No significant disc bulge or disc herniation. No spinal canal stenosis. No foraminal stenosi s. T12-L1: No significant disc bulge or disc herniation. No spinal canal stenosis. No foraminal stenos is. IMPRESSION: 1. Broad-based disc bulge with mild anterior thecal sac compression, and marked facet hypertrophy and ligamentum flavum laxity of 4 5 contributing to spinal canal stenosis. 2. Broad base disc bulge L5-S1 without spinal canal stenosis.
== END | disposition home or self-care (01) ==
LOC: RADMRIMAIN 10:41
PROVIDERS: ATTEND Orthopaedic Surgery
DX: M47.26 Other spondylosis with radiculopathy, lumbar region (principal); M51.16 Intervertebral disc disorders with radiculopathy, lumbar region; M24.28 Disorder of ligament, vertebrae
CPT/HCPCS: 72148

== ENCOUNTER 2024-06-02 13:06 | Observation (INO) | payer BC, OTHER ==
--- NOTE | 2024-06-02 13:42 | ED ---
Chest Pain HPI - General Chief Complaint: Chest Pain Stated Complaint: burning sensation in chest Time Seen by Provider: 06/02/24 13:34 Source: patient, RN notes reviewed, old records reviewed Mode of arrival: ambulatory Limitations: no limitations - History of Present Illness Initial Comments: 63-year-old male presented to the ER for evaluation of left sided chest discomfort. Patient states since last night he has been having burning/tearing sensation under his left breast. He denies any radiation of the sensation. Patient reports pain is made worse by leaning forward when tying his shoes. Sitting he has no discomfort. Patient does report a history of an aortic aneurysm but has not followed up with a licensed mental health professional or vascular surgeon in [facility] 3 years. He has been following up with his primary care physician. Patient does report mild shortness of breath but contributes this to anxiety and being overweight. Patient admits to some peripheral edema but states he is on a water pill that is combined with his lisinopril. Peripheral edema is at baseline per patient. Patient denies any dizziness, lightheadedness, nausea, vomiting. Patient reports a history of acid reflux and states when getting out of the shower this morning he felt like he was going to vomit due to this. He did take his PPI this morning. Patient typically takes Percocet for back pain but states this has not been touching his chest discomfort. Patient denies any fevers, cough, congestion, abdominal pain, constipation/diarrhea, urinary complaints. - Related Data Home Medications Medication Instructions Recorded Confirmed oxyCODONE-APAP 10-325MG [Percocet 1 tab PO Q6H 08/24/13 06/02/24 10-325 mg] Aspirin EC [Ecotrin Low Dose] 81 mg PO DAILY 03/23/18 06/02/24 Atorvastatin [Lipitor] 40 mg PO HS 03/23/18 06/02/24 Nitroglycerin Sl Tabs [Nitrostat] 0.4 mg PO Q5M PRN 03/31/19 06/02/24 ALPRAZolam [Xanax] 0.25 mg PO DAILY PRN 01/09/22 06/02/24 Lisinopril-Hctz 20-25 mg 1 tab PO DAILY 06/02/24 06/02/24 [Zestoretic 20-25] Pantoprazole [Protonix] 40 mg PO DAILY 06/02/24 06/02/24 amLODIPine [Norvasc] 5 mg PO DAILY 06/02/24 06/02/24 diazePAM [Valium] 2 mg PO DAILY PRN 06/02/24 06/02/24 lisinopriL [Zestril] 20 mg PO HS 06/02/24 06/02/24 Allergies Allergy/AdvReac Type Severity Reaction Status Date / Time morphine AdvReac Rash/Hives Verified 06/02/24 15:07 Review of Systems ROS Statement: Those systems with pertinent positive or pertinent negative responses have been documented in the HPI. ROS Other: All systems not noted in ROS Statement are negative. EKG Findings - EKG Comments: EKG Findings:: EKG taken at 13: 16 showing a sinus rhythm. Ventricular rate 99, [place] interval 191, QRS duration 103, QT/QTc 334/390. Past Medical History Past Medical History: Coronary Artery Disease (CAD), Chest Pain / Angina, GERD/Reflux, Hyperlipidemia, Hypertension, Musculoskeletal Disorder Additional Past Medical History / Comment(s): Recent r knee skin infection tx with antibiotic-pt states not getting much better, chronic cervical and lower back pain, bronchitis. abdominal aortic anyuresm History of Any Multi-Drug Resistant Organisms: None Reported Past Surgical History: No Surgical Hx Reported, Heart Catheterization With Stent Additional Past Surgical History / Comment(s): PCI with stent at [facility] April,, pain clinic procedures, cyst lanced on R shoulder - 2016 Past Anesthesia/Blood Transfusion Reactions: No Reported Reaction Date of Last Stent Placement:: April 2017 Past Psychological History: Anxiety Smoking Status: Former smoker Past Alcohol Use History: None Reported Past Drug Use History: None Reported - Past Family History Mother Family Medical History: Coronary Artery Disease (CAD), Diabetes Mellitus Additional Family Medical History / Comment(s): Mother is . She had 3 vessel CABG Sister(s) Family Medical History: Coronary Artery Disease (CAD), Vascular Disorder Additional Family Medical History / Comment(s): Sister had CABG-3 vessel. She at the age of 56yrs which pt believes had to do with her blood thinners and a brain anuerysm. Father Family Medical History: Myocardial Infarction ([place]) Additional Family Medical History / Comment(s): Father of a massive [place] at the age of 65yrs. General Exam Limitations: no limitations General appearance: alert, in no apparent distress Respiratory exam: Present: normal lung sounds bilaterally. Absent: respiratory distress, wheezes, rales, rhonchi, stridor Cardiovascular Exam: Present: regular rate, normal rhythm, normal heart sounds. Absent: systolic murmur, diastolic murmur, rubs, gallop, clicks Extremities exam: Present: normal inspection, full ROM, normal capillary refill, pedal edema (Nonpitting bilaterally pretibial). Absent: tenderness, joint swelling, calf tenderness Neurological exam: Present: alert, oriented X3, CN II-XII intact Skin exam: Present: warm, dry, intact, normal color, other (No rashes or wounds noted to area of concern). Absent: rash Course Vital Signs 06/02/24 06/02/24 13:09 15:17 Temperature 98.1 F 97.6 F Pulse Rate 112 H 70 Respiratory 20 16 Rate Blood Pressure 150/88 126/76 O2 Sat by Pulse 95 94 L Oximetry - Reevaluation(s) Reevaluation #1: 06/02/24 15:06 Case discussed with [facility], Dr. Garcia, for admission. Chest Pain MDM - MDM Was pt. sent in by a medical professional or institution (, PA, CHILD WELFARE MANAGER, urgent care, hospital, or intermediate...) When possible be specific @ -No Did you speak to anyone other than the patient for history (EMS, parent, family, police, friend...)? What history was obtained from this source @ -No Did you review nursing and triage notes (agree or disagree)? Why? @ -I reviewed and agree with nursing and triage notes Were old charts reviewed (outside hosp., previous admission, EMS record, old EKG, old radiological studies, urgent care reports/EKG's, intermediate records)? Report findings @ -No old charts were reviewed Differential Diagnosis (chest pain, altered mental status, abdominal pain women, abdominal pain men, vaginal bleeding, weakness, fever, dyspnea, syncope, headache, dizziness, GI bleed, back pain, seizure, CVA, palpatations, mental health, musculoskeletal)? @ -Differential Chest Pain:Stable Angina, Unstable Angina, STEMI, NSTEMI Aortic Dissection, Pneumothorax, Musculoskeletal, Esophageal Spasm GERD, Cholecystitis, Pancreatitis, Zoster, this is not meant to be an all-inclusive list. EKG interpreted by me (3pts min.). @ -As above X-rays interpreted by me (1pt min.). @ -None done CT interpreted by me (1pt min.). @ -CTA chest abdomen pelvis showing no evidence of aortic dissection or intramural hematoma. Stable aneurysm dilation of the aortic root measuring 4.3 cm. Dilated appendix without surrounding inflammatory changes. Severe hepatic steatosis. Mild pulmonary fibrotic changes. Stable nonspecific mildly enlarged midsternal and hilar lymph nodes. U/S interpreted by me (1pt. min.). @ -None done What testing was considered but not performed or refused? (CT, X-rays, U/S, labs)? Why? @ -None What meds were considered but not given or refused? Why? @ -None Did you discuss the management of the patient with other professionals (professionals i.e. , PA, CHILD WELFARE MANAGER, lab, RT, psych nurse, social media campaign manager, environmental services floor tech, teacher, licensed loan officer assistant, case manager specialist)? Give summary @ -Case discussed with [facility], Dr. Garcia, for admission. Was smoking cessation discussed for >3mins.? @ -No Was critical care preformed (if so, how long)? @ -No Were there social determinants of health that impacted care today? How? (Homelessness, low income, unemployed, alcoholism, drug addiction, transportation, low edu. Level, literacy, decrease access to med. care, custodial, rehab)? @ -No Was there de-escalation of care discussed even if they declined (Discuss DNR or withdrawal of care, Hospice)? DNR status @ -No What co-morbidities impacted this encounter? (DM, HTN, Smoking, COPD, CAD, Cancer, CVA, ARF, Chemo, Hep., AIDS, mental health diagnosis, sleep apnea, morbid obesity)? @ -Obese, hypertension, CAD Was patient admitted / discharged? Hospital course, mention meds given and route, prescriptions, significant lab abnormalities, going to OR and other pertinent info. @ -Admitted. 63-year-old male presented to the ER for evaluation of left-sided chest discomfort. Upon rooming, history and physical exam is completed. Vitals within acceptable limits. Patient in no signs of acute distress nontoxic-appearing. Laboratory studies obtained unremarkable. Initial troponin undetectable. EKG showing sinus rhythm. No acute evidence of infarct or ischemia. CT chest abdomen pelvis showing a stable aneurysm dilation of the aortic root measuring 4.3 cm. Dilated appendix without surrounding inflammatory changes. No other acute process. Heart score 4. Given presenting symptoms and high heart score cardiac observation was considered and discussed with Dr. Garcia [facility], for admission. Patient given IV Protonix as symptoms possibly GERD. Patient is agreeable for admission. Cardiology on consult. General surgery also on consult for evaluation of dilated appendix. Case discussed with ED attending, Dr. Meredith. Undiagnosed new problem with uncertain prognosis? @ -No Drug Therapy requiring intensive monitoring for toxicity (Heparin, Nitro, Insulin, Cardizem)? @ -No Were any procedures done? @ -No Diagnosis/symptom? @ -Chest pain Acute, or Chronic, or Acute on Chronic? @ -Acute Uncomplicated (without systemic symptoms) or Complicated (systemic symptoms)? @ -Complicated Side effects of treatment? @ -No Exacerbation, Progression, or Severe Exacerbation? @ -No Poses a threat to life or bodily function? How? (Chest pain, [place], [place], pneumonia, PE, COPD, DKA, ARF, appy, cholecystitis, CVA, Diverticulitis, Homicidal, Suicidal, threat to staff... and all critical care pts) @ -Yes, cannot rule out ACS Disposition Clinical Impression: Chest pain Disposition: ADMITTED IP TO THIS HOSP Condition: Stable Time of Disposition: 15:06
[2024-06-02 13:53] LABS: ALT 58 U/L (4-49); AST 57 U/L (17-59); African American GFR (CKD) >90 (>60 ml/min/1.73 sqM); Albumin 4.8 g/dL (3.5-5.0); Alkaline Phosphatase 103 U/L (38-126); Anion Gap 10 mmol/L; Blood Urea Nitrogen 12 mg/dL (9-20); Calcium 9.8 mg/dL (8.4-10.2); Carbon Dioxide 26 mmol/L (22-30); Chloride 101 mmol/L (98-107); Glucose 125 mg/dL (74-99); Magnesium 1.8 mg/dL (1.6-2.3); Non-African American GFR(CKD) >90 (>60 ml/min/1.73 sqM); Potassium 3.8 mmol/L (3.5-5.1); Sodium 137 mmol/L (137-145); Total Protein 7.5 g/dL (6.3-8.2)
[2024-06-02 13:57] LABS: Partial Thromboplastin Time 22.5 sec (22.0-30.0); Prothrombin Time 11.5 sec (10.0-12.5)
--- NOTE | 2024-06-02 14:24 | CT ---
EXAMINATION TYPE: CT angio thor/abd pel aorta CT DLP: 2705.8 mGycm, Automated exposure control for dose reduction was used. DATE OF EXAM: 06/02/2024 2:07 PM COMPARISON: CT chest 02/17/2023. CLINICAL INDICATION:Male, 63 years old with history of burning tearing left chest pain hx aortic aneu rysm; PHH, burning tearing left chest pain hx aortic aneurysm TECHNIQUE: Dissection protocol: Multiple axial CT images of the chest, abdomen, and pelvis were obtai odalys prior and to the administration of IV contrast. 3-D reformats and maximum intensity projection fo rmat were performed on a separate workstation. Then the abdomen was scanned after administration of 1 00 cc of Isovue 370 IV contrast. FINDINGS: ARTERIAL VASCULATURE: Mild atherosclerotic calcification of the aorta and its branches. Conventional three-vessel aortic arch. Great arch vessels are patent and normal in course and caliber. No evidence for intramural hematoma or dissection. Stable aneurysmal dilatation of the aortic root measurement o f 4.3 cm. No ascending or descending thoracic aortic aneurysm. The abdominal aorta is normal in cours e and caliber. The celiac access, SMA, and CAPRICE are widely patent. The bilateral renal arteries widely patent. There are 2 right renal arteries. The bilateral common iliac arteries are patent. The bilate ral internal and external iliac arteries are patent. The visualized bilateral common femoral arteries are patent. The visualized portions of the bilateral superficial and deep femoral arteries are bilat erally patent. PULMONARY ARTERIAL VASCULATURE: Normal caliber. No evidence of filling defect to suggest pulmonary em bolus. Lungs/pleura: No pleural effusion, pneumothorax, or focal consolidation. Minimal centrilobular emphys ematous changes. Left apical calcified granuloma. Bilateral upper lobe subpleural similar articulatio ns. Consistent with interstitial fibrosis. No honeycombing. Stable lingular 5 mm pulmonary nodular de nsity (series 506, image 82). Heart: Within normal limits. No pericardial effusion. Small coronary artery calcifications. Mediastinum: Mildly enlarged 1.4 cm right paratracheal lymph node. Mildly enlarged subcarinal lymph n ode measuring 1.3 cm short axis. Mildly enlarged left hilar lymph node measuring up to 1.2 cm axis. M ildly enlarged right hilar lymph node measuring 1.1 cm short axis. These are relatively stable from p rior exam. Lower Neck: No significant findings. Soft tissues: Bilateral gynecomastia. Stable mildly prominent right axillary lymph nodes. Abdomen: Liver: Diffusely hypoattenuating. No focal lesion. Gallbladder and Bile ducts: Unremarkable. Pancreas: Unremarkable. Spleen: Unremarkable. Adrenal glands: Unremarkable. Kidneys and Ureters: Unremarkable. No hydronephrosis. Stomach and Bowel: Dilated appendix measuring up to 1.3 cm without surrounding inflammatory changes. No visualized appendicolith. No evidence of bowel obstruction. Peritoneum: No evidence of pneumoperitoneum, free fluid, or adenopathy. Bladder: Unremarkable. Reproductive: Unremarkable. Abdominal wall/soft tissues: Unremarkable. Musculoskeletal: The osseous structures appear intact. DISH of the thoracic spine. Mild multilevel de generative disc disease and facet arthropathy of the lumbar spine. Degenerative changes bilateral SI joints with anterior bridging on the right. IMPRESSION: 1. No evidence for aortic dissection or intramural hematoma. Stable aneurysm dilatation of the aortic root measuring up to 4.3 cm. 2. Dilated appendix without surrounding inflammatory changes. Findings are equivocal for possible ear ly acute appendicitis. Correlate clinically. 3. Severe hepatic steatosis. 4. Mild pulmonary fibrotic changes. 5. Stable nonspecific mildly enlarged mediastinal and hilar lymph nodes. [facility], , 06/02/2024 2:22 PM
[2024-06-02 14:29] LABS: Basophils # (A) 0.1 k/uL (0-0.2); Basophils % (A) 1 %; Eosinophils # (A) 0.3 k/uL (0-0.7); Eosinophils % (A) 6 %; HCT 43.1 % (39.0-53.0); HGB 14.7 gm/dL (13.0-17.5); Lymphocytes # (A) 1.5 k/uL (1.0-4.8); Lymphocytes % (A) 28 %; MCH 30.3 pg (25.0-35.0); MCHC 34.1 g/dL (31.0-37.0); Mean Platelet Volume 7.7; Monocytes # (A) 0.5 k/uL (0-1.0); Monocytes % (A) 9 %; Neutrophils # (A) 2.8 k/uL (1.3-7.7); Neutrophils % (A) 53 %; Platelet Count 204 k/uL (150-450); RBC 4.84 m/uL (4.30-5.90); RDW 12.6 % (11.5-15.5); WBC 5.2 k/uL (3.8-10.6)
[2024-06-02] MEDS ORDERED: NALOXONE 0.4 MG/ML 1 ML VIAL IV PRN (15:04)
[2024-06-02] MEDS: PANTOPRAZOLE 40 MG/10 ML VIAL IV STA (15:22)
[2024-06-02] MEDS: ASPIRIN 81 MG PO SCH (16:49)
[2024-06-02] MEDS: PANTOPRAZOLE 40 MG TABLET PO SCH (16:49)
[2024-06-02] MEDS: LISINOPRIL-HCTZ 20-25 MG 1 EACH TAB PO SCH (16:50)
[2024-06-02] MEDS: amLODIPine 5 MG TAB PO SCH (16:53)
[2024-06-02] MEDS: oxyCODONE-APAP 10-325MG 1 EACH TAB PO PRN (17:06)
[2024-06-02] MEDS: lisinopriL 20 MG TAB PO SCH (20:27)
[2024-06-02] MEDS: ATORVASTATIN 40 MG TAB PO SCH (20:27)
[2024-06-02] MEDS: ACETAMINOPHEN TAB 325 MG TAB PO PRN (20:27)
[2024-06-02] MEDS: ALPRAZolam 0.25 MG TAB PO PRN (20:27)
[2024-06-03] MEDS: ENOXAPARIN 40 MG/0.4 ML SYRINGE SQ SCH (10:50)
--- NOTE | 2024-06-03 11:49 | P.HPIM ---
History of Present Illness H&P Date: 06/03/24 Patient is a 63-year-old male with past medical history of CAD with stent placement, HTN, dyslipidemia, chronic back pain on Percocet, GERD, thoracic aortic aneurysm, presented to the ER on 06/02/2024 with chest discomfort described as burning or tearing sensation under the left breast with no radiation. Exacerbated by leaning forward. Patient has had chronic lower extremity edema that dissipates when. Denies associated fevers, chills, changes in bowel habits, abdominal pain, dysuria. On arrival patient is afebrile, normotensive 126/76, satting well on room air. Lab work showed unremarkable CBC, CMP with elevated blood glucose 125, mildly elevated ALT, 58, negative troponin x 2. He had CTA thoracic/abdominal aorta, showed no evidence of aortic dissection or intramural hematoma, stable aneurysmal dilation of the aortic root 4.3 cm, revealed dilated appendix without inflammatory changes, possible acute appendicitis, severe hepatic steatosis, mild pulmonary fibrotic changes, stable nonspecific mildly enlarged mediastinal and hilar lymph nodes EKG showed sinus rhythm, heart rate in 90s, QTc 390. Patient was admitted to another team initially for further evaluation of chest pain, cardiology consulted, surgery consulted for enlarged appendix. Sound physicians are taking over on 06/03. On my evaluation, patient denies any chest pain or shortness of breath at the moment, he shared that he gets short of breath with activity. He was seen at another institution for abdominal pain on 05/05/2024 and was diagnosed with appendicitis, however surgery was not performed, patient states that surgeon was emergency room if patient did not survive the surgery, initially however then shared that he was seen by medical office technician, heart ultrasound was performed and reportedly was normal, patient was also reportedly cleared to have surgery. He is having difficulty with his insurance and guesses that that is probably why he did not have the surgery done. He completed antibiotics. At this moment, he denies any abdominal pain or discomfort, he has regular bowel movements. Patient denied any recent viral illness Pertinent positives and negatives as discussed in HPI cOmplete review of systems was performed and all other systems are negative. Patient seen and examined at bedside. Vital signs reviewed General: nontoxic, no distress, appears at stated age, obese Derm: warm, dry Head: atraumatic, normocephalic, symmetric Eyes: EOMI, no lid lag, anicteric sclera, pupils equal round reactive to light ENT: Nose and ears atraumatic Neck: No thyromegaly, supple Mouth: no lip lesion, mucus membranes moist Cardiovascular: S1S2 reg, no murmur, no edema Lungs: clear to auscultation bilateral, no rhonchi, no rales, no wheeze, no accessory muscle use Abdominal: soft, nontender to palpation, no guarding, no appreciable organomegaly Ext: no gross muscle atrophy, muscle strength muscle strength 5 out of 5 in all 4 extremities, no contractures Neuro: CN II-XII grossly intact Psych: Alert, oriented, appropriate affect Assessment/Plan: Chest pain, negative troponins x 2 History of CAD with stents placement Hypertension Hyperlipidemia -Continue aspirin 81 daily, high intensity statins with atorvastatin 40 daily -Continue home lisinopril hydrochlorothiazide -Continue amlodipine 5 mg daily -Cardiology consulted, appreciate recommendations -Check TSH, A1c, lipid profile -Will try to obtain echo reports from the end of April -Check inflammatory markers ESR and CRP GERD: Continue home Protonix 40 Enlarged appendix: Surgery consulted, patient is currently asymptomatic. Severe hepatic steatosis Elevated liver enzymes Obesity elevated blood glucose -Recommend weight loss -monitor CMP, follow-up with primary care physician -A1c ordered Former smoker, quit in 2019 Anxiety: Continue home Xanax 0.25 as needed daily Chronic back pain: Continue home Percocet 10 every 6 hours as needed The patient is admitted with an anticipated less than 2 midnight stay as observation status for evaluation of chest pain. CODE STATUS: Full DVT prophylaxis: Lovenox Anticipated discharge date: 24 to [address]: Home A total of 40 minutes was spent on the care of this complex patient more than 50% of the time was spent in counseling and care coordination. Past Medical History Past Medical History: Coronary Artery Disease (CAD), Chest Pain / Angina, GERD/Reflux, Hyperlipidemia, Hypertension, Musculoskeletal Disorder Additional Past Medical History / Comment(s): Recent r knee skin infection tx with antibiotic-pt states not getting much better, chronic cervical and lower back pain, bronchitis. abdominal aortic anyuresm History of Any Multi-Drug Resistant Organisms: None Reported Past Surgical History: No Surgical Hx Reported, Heart Catheterization With Stent Additional Past Surgical History / Comment(s): PCI with stent at [facility] April,, pain clinic procedures, cyst lanced on R shoulder - [place]. 2017 Past Anesthesia/Blood Transfusion Reactions: No Reported Reaction Date of Last Stent Placement:: April 2017 Past Psychological History: Anxiety Smoking Status: Former smoker Past Alcohol Use History: None Reported Past Drug Use History: None Reported - Past Family History Mother Family Medical History: Coronary Artery Disease (CAD), Diabetes Mellitus Additional Family Medical History / Comment(s): Mother is . She had 3 vessel CABG Sister(s) Family Medical History: Coronary Artery Disease (CAD), Vascular Disorder Additional Family Medical History / Comment(s): Sister had CABG-3 vessel. She at the age of 56yrs which pt believes had to do with her blood thinners and a brain anuerysm. Father Family Medical History: Myocardial Infarction ([place]) Additional Family Medical History / Comment(s): Father of a massive [place] at the age of 65yrs. Medications and Allergies Home Medications Medication Instructions Recorded Confirmed Type oxyCODONE-APAP 10-325MG [Percocet 1 tab PO Q6H 08/24/13 06/02/24 History 10-325 mg] Aspirin EC [Ecotrin Low Dose] 81 mg PO DAILY 03/23/18 06/02/24 History Atorvastatin [Lipitor] 40 mg PO HS 03/23/18 06/02/24 History Nitroglycerin Sl Tabs [Nitrostat] 0.4 mg PO Q5M PRN 03/31/19 06/02/24 History ALPRAZolam [Xanax] 0.25 mg PO DAILY PRN 01/09/22 06/02/24 History Lisinopril-Hctz 20-25 mg 1 tab PO DAILY 06/02/24 06/02/24 History [Zestoretic 20-25] Pantoprazole [Protonix] 40 mg PO DAILY 06/02/24 06/02/24 History amLODIPine [Norvasc] 5 mg PO DAILY 06/02/24 06/02/24 History diazePAM [Valium] 2 mg PO DAILY PRN 06/02/24 06/02/24 History lisinopriL [Zestril] 20 mg PO HS 06/02/24 06/02/24 History Allergies Allergy/AdvReac Type Severity Reaction Status Date / Time morphine AdvReac Rash/Hives Verified 06/02/24 15:07 Physical Exam Vitals: Vital Signs Temp Pulse Pulse Resp BP BP Pulse Ox 06/03/24 07:00 97.8 F 67 17 110/65 93 L 06/03/24 02:00 97.9 F 81 16 102/69 95 06/02/24 20:00 97.8 F 80 16 101/64 95 06/02/24 16:21 97.7 F 72 17 150/76 97 06/02/24 15:17 97.6 F 70 16 126/76 94 L 06/02/24 13:09 98.1 F 112 H 20 150/88 95 Intake and Output 06/02/24 06/03/24 06/03/24 22:59 06:59 14:59 Other: # Voids 2 2 Weight 126.099 kg Results CBC & Chem 7: 06/02/24 13:31 06/02/24 13:31 Labs: Abnormal Lab Results - Last 24 Hours (Table) 06/02/24 Range/Units 13:31 Glucose 125 H (74-99) mg/dL ALT 58 H (4-49) U/L Thrombosis Risk Factor Assmnt - Choose All That Apply Each Factor Represents 1 point: Obesity (BMI >25) Thrombosis Risk Factor Assessment Total Risk Factor Score: 1 Thrombosis Risk Factor Assessment Level: Low Risk
[2024-06-03 14:39] VITALS: BP 120/65; PULSE 92; RESP 15; TEMP 98.2
--- NOTE | 2024-06-03 14:46 | P.CRDCN ---
History of Present Illness Consult date: 06/03/24 Consult reason: chest pain Chief complaint: Chest pain History of present illness: History of present illness: Patient is a pleasant 63-year-old male with significant past medical history of CAD status post PCI x 1 in 2018, hypertension, hyperlipidemia, anxiety, back pain who presented with complaints of chest pain. He states yesterday he was having a burning and tearing sensation in his left chest only when bending over. He denied any associated signs of symptoms of dyspnea, diaphoresis, nausea. He states his anxiety did get worse with this pain. Denies any recent infections. Prior echo from 2019 shows EF 55-60%, moderate LVH. CT thoracic shows aortic aneurysm 4.3 cm. EKG shows sinus rhythm, 99 bpm. He states he was recently admitted at the hospital in [place] and treated with antibiotics for appendi citis. He believes he had an echocardiogram done at that time. He denies any abdominal pain. Labs reviewed: Troponin negative, hemoglobin 14.0, creatinine 0.89, TSH normal. REVIEW OF SYSTEMS: No fever or chills. No cough or expectoration. No diaphoresis. Patient denies headache, dizziness, blurred vision, double vision. Patient denies any stomach discomfort. No nausea, vomiting. No hematochezia. No hematemesis. Denies any black stools or blood in his stools. Denies dysuria or hematuria. No muscle weakness or numbness. Reports chest pain with bending. PHYSICAL EXAMINATION: This is a 63-year-old male in no apparent distress at the time of my examination. HEENT: Head is atraumatic, normocephalic. Pupils are equal, round. Sclerae anicteric. Conjunctivae are clear. Mucous membranes of the mouth are moist. Neck is supple. There is no jugular venous distention. No carotid bruit is heard. CHEST EXAMINATION: Lungs are clear to auscultation. No chest wall tenderness is noted on palpation or with deep breathing. HEART EXAMINATION: Heart regular rate and rhythm. S1, S2 heard. No murmurs, gallops or rub. ABDOMEN: Soft, nontender. Bowel sounds are heard. EXTREMITIES: 2+ peripheral pulses with no evidence of peripheral edema and no calf tenderness noted. NEUROLOGIC EXAMINATION: Patient is awake, alert and oriented x3. IMPRESSION AND PLAN: CAD status post PCI 2018 Hypertension Hyperlipidemia Chest pain, atypical Anxiety Chronic back pain PLAN: ACS ruled out. CT chest from 2022 as well as current admission reviewed personally by Dr. Vargas and aorta measures 3.6 cm, therefore, no true aneurysm. Chest pain likely musculoskeletal. Okay to discharge home from cardiac standpoint. Follow-up in office in 1-2 weeks. Consider outpatient stress testing. I am dictating on behalf of Dr. Sergio Vargas's history/physical and assessment/plan. Past Medical History Past Medical History: Coronary Artery Disease (CAD), Chest Pain / Angina, GERD/Reflux, Hyperlipidemia, Hypertension, Musculoskeletal Disorder Additional Past Medical History / Comment(s): Recent r knee skin infection tx with antibiotic-pt states not getting much better, chronic cervical and lower back pain, bronchitis. abdominal aortic anyuresm History of Any Multi-Drug Resistant Organisms: None Reported Past Surgical History: No Surgical Hx Reported, Heart Catheterization With Stent Additional Past Surgical History / Comment(s): PCI with stent at [facility] April,, pain clinic procedures, cyst lanced on R shoulder - 2016 Past Anesthesia/Blood Transfusion Reactions: No Reported Reaction Date of Last Stent Placement:: April 2017 Past Psychological History: Anxiety Smoking Status: Former smoker Past Alcohol Use History: None Reported Past Drug Use History: None Reported - Past Family History Mother Family Medical History: Coronary Artery Disease (CAD), Diabetes Mellitus Additional Family Medical History / Comment(s): Mother is . She had 3 vessel CABG Sister(s) Family Medical History: Coronary Artery Disease (CAD), Vascular Disorder Additional Family Medical History / Comment(s): Sister had CABG-3 vessel. She at the age of 56yrs which pt believes had to do with her blood thinners and a brain anuerysm. Father Family Medical History: Myocardial Infarction ([place]) Additional Family Medical History / Comment(s): Father of a massive [place] at the age of 65yrs. Medications and Allergies Home Medications Medication Instructions Recorded Confirmed Type oxyCODONE-APAP 10-325MG [Percocet 1 tab PO Q6H 08/24/13 06/02/24 History 10-325 mg] Aspirin EC [Ecotrin Low Dose] 81 mg PO DAILY 03/23/18 06/02/24 History Atorvastatin [Lipitor] 40 mg PO HS 03/23/18 06/02/24 History Nitroglycerin Sl Tabs [Nitrostat] 0.4 mg PO Q5M PRN 03/31/19 06/02/24 History ALPRAZolam [Xanax] 0.25 mg PO DAILY PRN 01/09/22 06/02/24 History Lisinopril-Hctz 20-25 mg 1 tab PO DAILY 06/02/24 06/02/24 History [Zestoretic 20-25] Pantoprazole [Protonix] 40 mg PO DAILY 06/02/24 06/02/24 History amLODIPine [Norvasc] 5 mg PO DAILY 06/02/24 06/02/24 History diazePAM [Valium] 2 mg PO DAILY PRN 06/02/24 06/02/24 History lisinopriL [Zestril] 20 mg PO HS 06/02/24 06/02/24 History Allergies Allergy/AdvReac Type Severity Reaction Status Date / Time morphine AdvReac Rash/Hives Verified 06/02/24 15:07 Physical Exam Vitals: Vital Signs Temp Pulse Pulse Resp BP BP Pulse Ox 06/03/24 07:00 97.8 F 67 17 110/65 93 L 06/03/24 02:00 97.9 F 81 16 102/69 95 06/02/24 20:00 97.8 F 80 16 101/64 95 06/02/24 16:21 97.7 F 72 17 150/76 97 06/02/24 15:17 97.6 F 70 16 126/76 94 L 06/02/24 13:09 98.1 F 112 H 20 150/88 95 Intake and Output 06/02/24 06/03/24 06/03/24 22:59 06:59 14:59 Other: # Voids 2 2 Weight 126.099 kg Results 06/02/24 13:31 06/02/24 13:31 Cardiac Enzymes 06/02/24 06/02/24 06/02/24 Range/Units 13:31 13:31 17:20 AST 57 (17-59) U/L Troponin I <0.012 <0.012 (0.000-0.034) ng/mL Coagulation 06/02/24 Range/Units 13:31 PT 11.5 (10.0-12.5) sec APTT 22.5 (22.0-30.0) sec CBC 06/02/24 Range/Units 13:31 WBC 5.2 (3.8-10.6) k/uL RBC 4.84 (4.30-5.90) m/uL Hgb 14.7 (13.0-17.5) gm/dL Hct 43.1 (39.0-53.0) % Plt Count 204 (150-450) k/uL Comprehensive Metabolic Panel 06/02/24 Range/Units 13:31 Sodium 137 (137-145) mmol/L Potassium 3.8 (3.5-5.1) mmol/L Chloride 101 (98-107) mmol/L Carbon Dioxide 26 (22-30) mmol/L BUN 12 (9-20) mg/dL Creatinine 0.89 (0.66-1.25) mg/dL Glucose 125 H (74-99) mg/dL Calcium 9.8 (8.4-10.2) mg/dL AST 57 (17-59) U/L ALT 58 H (4-49) U/L Alkaline Phosphatase 103 (38-126) U/L Total Protein 7.5 (6.3-8.2) g/dL Albumin 4.8 (3.5-5.0) g/dL Current Medications Generic Name Dose Route Start Last Admin Trade Name Freq PRN Reason Stop Dose Admin Acetaminophen 650 mg 06/02/24 15:04 06/02/24 20:27 Acetaminophen Tab 325 Mg Tab PO 650 mg Q6HR PRN Administration Mild Pain or Fever > 100.5 Alprazolam 0.25 mg 06/02/24 16:33 06/02/24 20:27 Alprazolam 0.25 Mg Tab PO 0.25 mg DAILY PRN Administration Anxiety Amlodipine Besylate 5 mg 06/02/24 16:45 06/02/24 16:53 Amlodipine 5 Mg Tab PO 5 mg DAILY RUPESH Administration Aspirin 81 mg 06/02/24 16:45 06/02/24 16:49 Aspirin 81 Mg PO Not Given DAILY RUPESH Atorvastatin Calcium 40 mg 06/02/24 21:00 06/02/24 20:27 Atorvastatin 40 Mg Tab PO 40 mg HS RUPESH Administration Enoxaparin Sodium 40 mg 06/03/24 09:00 Enoxaparin 40 Mg/0.4 Ml Syringe SQ DAILY ON LICENSE OF [facility] Lisinopril/HCTZ 1 each 06/02/24 17:30 06/02/24 16:50 Lisinopril-Hctz 20-25 Mg 1 Each Tab PO Not Given DAILY RUPESH Lisinopril 20 mg 06/02/24 21:00 06/02/24 21:00 Lisinopril 20 Mg Tab PO Not Given HS RUPESH Naloxone HCl 0.2 mg 06/02/24 15:04 Naloxone 0.4 Mg/Ml 1 Ml Vial IV Q2M PRN Opioid Reversal Oxycodone/Acetaminophen 1 each 06/02/24 16:33 06/03/24 05:33 Oxycodone-Apap 10-325mg 1 Each Tab PO 1 each Q6H PRN Administration Pain Pantoprazole Sodium 40 mg 06/02/24 16:45 06/02/24 16:49 Pantoprazole 40 Mg Tablet PO Not Given DAILY RUPESH Intake and Output 06/02/24 06/03/24 06/03/24 22:59 06:59 14:59 Other: # Voids 2 2 Weight 126.099 kg 06/02/24 13:31 06/02/24 13:31
--- NOTE | 2024-06-03 15:52 | P.GSCN ---
History of Present Illness Consult date: 06/03/24 History of present illness: CHIEF COMPLAINT: Appendicitis HISTORY OF PRESENT ILLNESS: The patient is a 63-year-old male who was previously admitted to hospital over a month ago for acute appendicitis. Patient reports due to his insurance he was only treated with oral antibiotics. Patient reports that since then he has changed his medical insurance. Patient reports presenting to the emergency room at this facility due to chest pain. Patient has been assessed by cold meat cook. Additional imaging study were obtained with questionable dilated appendix since general surgery consultation. Patient at this time denies acute onset abdominal pain. He does report that his left-sided chest pain has now improved. PAST MEDICAL HISTORY: See list and reviewed PAST SURGICAL HISTORY: See list and reviewed MEDICATIONS: See list and reviewed ALLERGIES: See list and reviewed SOCIAL HISTORY: See list and reviewed FAMILY HISTORY: See list and reviewed REVIEW OF ORGAN SYSTEMS: CONSTITUTIONAL: No fevers or chills. Morbid obesity excess calories, BMI 30.8 EYES: Denies any trouble with vision. Wears glasses. HEENT: No difficulties with hearing. No nosebleeds. No difficulty swallowing. RESPIRATORY: Denies pneumonia. Denies any troubles with breathing or dyspnea on exertion. CARDIOVASCULAR: Recent chest pain. GASTROINTESTINAL: Recent appendicitis May 05 treated with antibiotics. No recent colonoscopy noted. GENITOURINARY: Denies any blood in urine or increased urinary frequency. NEUROLOGICAL: Denies any numbness or tingling along the distal extremities. No seizure disorders or headaches. MUSCULOSKELETAL: Denies any back pain, stiffness or joint arthritis. SKIN: No current skin cancer. No rash. PSYCHIATRIC: Denies current depression or suicidal thoughts. ENDOCRINE: Denies current thyroid disorders. Denies any blood sugar glucose intolerance. HEME/LYMPHATIC: Denies any lumps and bumps around the neck. No recent deep venous thrombosis. ALLERGY/IMMUNOLOGY: No immunoglobulin therapy. No immune deficiencies. BREAST: Denies current breast lumps, pain or nipple discharge. PHYSICAL EXAM: VITALS: Reviewed CONSTITUTIONAL: Well developed and in no acute distress. EYES: Conjuctivae without sclera icterus. Extraocular movements grossly intact. Wears glasses. HEAD, EARS, NOSE, THROAT: Moist buccal mucosa. Head is atraumatic, normocephalic. Hears conversational speech. No nasal drainage. NECK: Supple. No JV distention. No thyroidomegaly. RESPIRATORY: Non-labored respirations and equal bilateral excursions. No gross wheezes. CARDIOVASCULAR: Palpable 2+ radial pulses. ABDOMEN: Nontender. Obese. LYMPH: No neck lymphadenopathy. MUSCULOSKELETAL: No clubbing cyanosis or edema SKIN: Warm and well perfused with good skin turgor. NEUROLOGIC: Cranial nerves II through XII grossly intact. No focal or lateralizing signs. PSYCH: Appropriate affect. Alert and oriented to person, place and time. Displays appropriate insight. CLINCAL LABS: Reviewed. WBC normal. ALT mildly elevated. Troponin is negative. IMAGING: Independently reviewed. CT of the abdomen pelvis reviewed demonstrated minimally dilated appendix. No bladder inflammatory changes. RADIOLOGY: Report reviewed. CT of the abdomen pelvis demonstrated dilated appendix questionable for early appendicitis. Fatty liver disease. EKG: Borderline EKG. Sinus arrhythmia. ASSESSMENT: 1. Abnormal CT scan for early appendicitis 2. History of acute appendicitis treated with antibiotics 3. Left-sided chest pain 4. Morbid obesity excess calories, BMI 38.8 5. Fatty liver disease with hepatomegaly PLAN: 1. Patient history is significant for symptomatic acute appendicitis treated without antibiotics. Patient is at risk for recurrent appendicitis is also demonstrated on the CT imaging. Patient opted for outpatient appendectomy which is reasonable. 2. Otherwise, patient clinically stable for discharge once medically stable. 3. Outpatient follow-up described. ADVANCE DIRECTIVE: CODE STATUS in chart. Thank you for this kind consultation. Past Medical History Past Medical History: Coronary Artery Disease (CAD), Chest Pain / Angina, GERD/Reflux, Hyperlipidemia, Hypertension, Musculoskeletal Disorder Additional Past Medical History / Comment(s): Recent r knee skin infection tx with antibiotic-pt states not getting much better, chronic cervical and lower back pain, bronchitis. abdominal aortic anyuresm History of Any Multi-Drug Resistant Organisms: None Reported Past Surgical History: No Surgical Hx Reported, Heart Catheterization With Stent Additional Past Surgical History / Comment(s): [facility] stent [facility] April,, pain clinic procedures, cyst lanced on R shoulder - 2016 Past Anesthesia/Blood Transfusion Reactions: No Reported Reaction Date of Last Stent Placement:: April 2017 Past Psychological History: Anxiety Smoking Status: Former smoker Past Alcohol Use History: None Reported Past Drug Use History: None Reported - Past Family History Mother Family Medical History: Coronary Artery Disease (CAD), Diabetes Mellitus Additional Family Medical History / Comment(s): Mother is . She had 3 vessel CABG Sister(s) Family Medical History: Coronary Artery Disease (CAD), Vascular Disorder Additional Family Medical History / Comment(s): Sister had CABG-3 vessel. She at the age of 56yrs which pt believes had to do with her blood thinners and a brain anuerysm. Father Family Medical History: Myocardial Infarction ([place]) Additional Family Medical History / Comment(s): Father of a massive [place] at the age of 65yrs. Medications and Allergies Home Medications Medication Instructions Recorded Confirmed Type oxyCODONE-APAP 10-325MG [Percocet 1 tab PO Q6H 08/24/13 06/02/24 History 10-325 mg] Aspirin EC [Ecotrin Low Dose] 81 mg PO DAILY 03/23/18 06/02/24 History Atorvastatin [Lipitor] 40 mg PO HS 03/23/18 06/02/24 History Nitroglycerin Sl Tabs [Nitrostat] 0.4 mg PO Q5M PRN 03/31/19 06/02/24 History ALPRAZolam [Xanax] 0.25 mg PO DAILY PRN 01/09/22 06/02/24 History Lisinopril-Hctz 20-25 mg 1 tab PO DAILY 06/02/24 06/02/24 History [Zestoretic 20-25] Pantoprazole [Protonix] 40 mg PO DAILY 06/02/24 06/02/24 History amLODIPine [Norvasc] 5 mg PO DAILY 06/02/24 06/02/24 History diazePAM [Valium] 2 mg PO DAILY PRN 06/02/24 06/02/24 History lisinopriL [Zestril] 20 mg PO HS 06/02/24 06/02/24 History Allergies Allergy/AdvReac Type Severity Reaction Status Date / Time morphine AdvReac Rash/Hives Verified 06/02/24 15:07 Surgical - Exam Vital Signs Temp Pulse Resp BP Pulse Ox 98.1 F 112 H 20 150/88 95 06/02/24 13:09 06/02/24 13:09 06/02/24 13:09 06/02/24 13:09 06/02/24 13:09 Results - Labs 06/02/24 13:31 06/02/24 13:31 Thyroid panel 06/03/24 Range/Units 07:55 TSH 1.330 (0.465-4.680) mIU/L Pituitary panel 06/03/24 Range/Units 07:55 TSH 1.330 (0.465-4.680) mIU/L
--- NOTE | 2024-06-03 17:10 | P.DS ---
Providers Date of admission: 06/02/24 15:40 Attending physician: Dave Morillo Consults: 06/02/24 15:04 Consult Physician Urgent Consulting Provider: Sergio Vargas Consult Reason/Comments: chest pain Do you want consulting provider notified?: Yes Consult Physician Urgent Consulting Provider: Magdalene Chaves Consult Reason/Comments: dilated appendix Do you want consulting provider notified?: Yes Primary care physician: Rodrigo Bonilla Hospital Course: Discharge Diagnosis: Chest pain, negative troponins x 2 History of CAD with stents placement Hypertension Hyperlipidemia Enlarged appendix Severe hepatic steatosis Elevated liver enzymes Obesity elevated blood glucose Hospital Course: Patient is a 63-year-old male with past medical history of CAD with stent placement, HTN, dyslipidemia, chronic back pain on Percocet, GERD, thoracic aortic aneurysm, presented to the ER on 06/02/2024 with chest discomfort described as burning or tearing sensation under the left breast with no radiation. Exacerbated by leaning forward. Patient has had chronic lower extremity edema that dissipates when. Denies associated fevers, chills, changes in bowel habits, abdominal pain, dysuria. On arrival patient is afebrile, normotensive 126/76, satting well on room air. Lab work showed unremarkable CBC, CMP with elevated blood glucose 125, mildly elevated ALT, 58, negative troponin x 2. He had CTA thoracic/abdominal aorta, showed no evidence of aortic dissection or intramural hematoma, stable aneurysmal dilation of the aortic root 4.3 cm, revealed dilated appendix without inflammatory changes, possible acute appendicitis, severe hepatic steatosis, mild pulmonary fibrotic changes, stable nonspecific mildly enlarged mediastinal and hilar lymph nodes EKG showed sinus rhythm, heart rate in 90s, QTc 390. Patient was admitted to another team initially for further evaluation of chest pain, cardiology consulted, surgery consulted for enlarged appendix. Sound physicians are taking over on 06/03. On my evaluation, patient denies any chest pain or shortness of breath at the moment, he shared that he gets short of breath with activity. He was seen at another institution for abdominal pain on 05/05/2024 and was diagnosed with appendicitis, however surgery was not performed, patient states that surgeon was emergency room if patient did not survive the surgery, initially however then shared that he was seen by scaffold worker, heart ultrasound was performed and reportedly was normal, patient was also reportedly cleared to have surgery. He is having difficulty with his insurance and guesses that that is probably why he did not have the surgery done. He completed antibiotics. At this moment, he denies any abdominal pain or discomfort, he has regular bowel movements. Patient denied any recent viral illness Patient was seen by cardiology, ACS ruled out, they noted that CT chest showed thoracic aorta measuring 3.6 cm therefore no true aneurysm, chest pain likely musculoskeletal and patient is okay to discharge from cardiac standpoint with follow-up in the office in 1 or 2 weeks with outpatient stress to consider. Surgical team evaluated patient, patient is deemed to be at risk for recurrent appendicitis, opted for outpatient appendectomy which was felt to be reasonable by surgical team, outpatient follow-up recommended, clinical stable for discharge. Patient seen and examined at bedside. No concerns or complaints Vital signs reviewed and stable. General: [nontoxic], [no distress], [appears at stated age], obese Derm: [warm], [dry] Head: [atraumatic], [normocephalic], [symmetric] Eyes: [EOMI], [no lid lag], [anicteric sclera] Mouth: [no lip lesion], [mucus membranes moist] Cardiovascular: [S1S2 reg], [no murmur] Lungs: [CTA bilateral], [no rhonchi, no rales] , [no accessory muscle use] Abdominal: [soft], [ nontender to palpation], [no guarding], [no appreciable organomegaly] Ext: [no gross muscle atrophy], [no edema], [no contractures] Neuro: [ CN II-XI grossly intact], [no focal neuro deficits] Psych: [Alert], [oriented], [appropriate affect] A total of 40 minutes of time were spent preparing this complex discharge summary. Patient was discharged on 06/03/2024. Patient Condition at Discharge: Stable Plan - Discharge Summary Discharge Rx Participant: No New Discharge Prescriptions: Continue oxyCODONE-APAP 10-325MG [Percocet 10-325 mg] 1 tab PO Q6H Atorvastatin [Lipitor] 40 mg PO HS Aspirin EC [Ecotrin Low Dose] 81 mg PO DAILY Nitroglycerin Sl Tabs [Nitrostat] 0.4 mg PO Q5M PRN PRN Reason: Chest Pain diazePAM [Valium] 2 mg PO DAILY PRN PRN Reason: Muscle Spasm Pantoprazole [Protonix] 40 mg PO DAILY Lisinopril-Hctz 20-25 mg [Zestoretic 20-25] 1 tab PO DAILY ALPRAZolam [Xanax] 0.25 mg PO DAILY PRN PRN Reason: Anxiety lisinopriL [Zestril] 20 mg PO HS amLODIPine [Norvasc] 5 mg PO DAILY Discharge Medication List oxyCODONE-APAP 10-325MG [Percocet 10-325 mg] 1 tab PO Q6H 08/24/13 [History] Aspirin EC [Ecotrin Low Dose] 81 mg PO DAILY 03/23/18 [History] Atorvastatin [Lipitor] 40 mg PO HS 03/23/18 [History] Nitroglycerin Sl Tabs [Nitrostat] 0.4 mg PO Q5M PRN 03/31/19 [History] ALPRAZolam [Xanax] 0.25 mg PO DAILY PRN 01/09/22 [History] Lisinopril-Hctz 20-25 mg [Zestoretic 20-25] 1 tab PO DAILY 06/02/24 [History] Pantoprazole [Protonix] 40 mg PO DAILY 06/02/24 [History] amLODIPine [Norvasc] 5 mg PO DAILY 06/02/24 [History] diazePAM [Valium] 2 mg PO DAILY PRN 06/02/24 [History] lisinopriL [Zestril] 20 mg PO HS 06/02/24 [History] Follow up Appointment(s)/Referral(s): Sergio Vargas DO [STAFF PHYSICIAN] - 1 Week Magdalene Chaves MD [STAFF PHYSICIAN] - 06/13/24 3:00 pm (NEED REFERRAL FOR APPENDECTOMY) Rodrigo Bonilla MD [Primary Care Provider] - 1-2 days Activity/Diet/Wound Care/Special Instructions: follow up with your PCP, cardiology, surgery Discharge Disposition: HOME SELF-CARE
[2024-06-04 07:13] LABS: Chol/HDL Ratio 4.37 Ratio; LDL Cholesterol,Calculated 60.2 mg/dL (0.0-131.0)
== END 2024-06-03 16:29 | disposition home or self-care (01) ==
LOC: EC 13:06 → 6NMEDSUR 15:40
PROVIDERS: ADMIT Student in an Organized Health Care Education/Training Program; ATTEND Student in an Organized Health Care Education/Training Program
DX: R07.89 Other chest pain (principal); K21.9 Gastro-esophageal reflux disease without esophagitis; I10 Essential (primary) hypertension; I25.10 Atherosclerotic heart disease of native coronary artery without angina pectoris; E78.5 Hyperlipidemia, unspecified; F41.9 Anxiety disorder, unspecified; K76.0 Fatty (change of) liver, not elsewhere classified; R16.0 Hepatomegaly, not elsewhere classified; R73.9 Hyperglycemia, unspecified; M54.9 Dorsalgia, unspecified; G89.29 Other chronic pain; K38.8 Other specified diseases of appendix; E66.01 Morbid (severe) obesity due to excess calories; Z68.38 Body mass index [BMI] 38.0-38.9, adult; Z87.891 Personal history of nicotine dependence; Z95.5 Presence of coronary angioplasty implant and graft; Z79.82 Long term (current) use of aspirin; Z79.899 Other long term (current) drug therapy; Z88.5 Allergy status to narcotic agent; Z82.49 Family history of ischemic heart disease and other diseases of the circulatory system
CPT/HCPCS: 96372; 96374; 99285; 36415; 93005; 80061; 80053; 85652; 84443; 83735; 84484; 85025; 85610; 85730; 86140; 83036; 71275; 74174; G0378 ×2; J1650; Q9967; J2470

== ENCOUNTER 2024-07-28 05:36 | Day surgery (SDC) | payer BC ==
[~2024-07-28 05:36] MED LIST changes: -LACTATED RINGERS 1,000 ML IV SCH; +ceFAZolin 2 GM in DEXTROSE 5% IN WATER 50 ML IVPB PRN
[2024-07-28] MEDS: IV FLUID CONTINUATION 1,000 ML IV ONE (06:47)
[2024-07-28] MEDS ORDERED: MIDAZOLAM 2 MG/2 ML VIAL IV PRN (07:00)
[2024-07-28] MEDS: LACTATED RINGERS 1,000 ML IV SCH (07:09)
[2024-07-28] MEDS: ONDANSETRON 4 MG/2 ML VIAL IVP PRN (07:14)
[2024-07-28] MEDS: MELOXICAM 7.5 MG TAB PO PRN (07:14)
[2024-07-28] MEDS: ACETAMINOPHEN TAB 500 MG TAB PO PRN (07:14)
[2024-07-28 07:15] LABS: Basophils # (A) 0.07 10*3/uL (0.00-0.10); Basophils % (A) 1.2 %; Eosinophils # (A) 0.47 10*3/uL (0.04-0.35); Eosinophils % (A) 8.3 %; HGB 14.3 g/dL (13.0-17.0); Lymphocytes # (A) 2.42 10*3/uL (0.90-5.00); Lymphocytes % (A) 42.8 %; MCH 30.6 pg (27.0-32.0); MCHC 35.8 g/dL (32.0-37.0); MCV 85.5 fL (80.0-97.0); Mean Platelet Volume 9.7 fL (9.5-12.2); Monocytes # (A) 0.68 10*3/uL (0.20-1.00); Neutrophils # (A) 2.01 10*3/uL (1.80-7.70); Neutrophils % (A) 35.5 %; Platelet Count 218 10*3/uL (140-440); RBC 4.68 10*6/uL (4.40-5.60); RDW 12.2 % (11.5-14.5); WBC 5.66 10*3/uL (4.50-10.00)
[2024-07-28] MEDS: DEXAMETHASONE SOD PHOSPHATE 4 MG/ML 1 ML VIAL IVP STA (07:15)
[2024-07-28] MEDS: HEPARIN SODIUM,PORCINE 5,000 UNIT/ML 1 ML VIAL SQ PRN (07:16)
[2024-07-28] MEDS ORDERED: GLYCOPYRROLATE 0.2 MG/ML 2 ML VIAL ONE (07:25)
[2024-07-28] MEDS ORDERED: MIDAZOLAM 2 MG/2 ML VIAL ONE (07:25)
[2024-07-28] MEDS ORDERED: WATER FOR INJECTION, STERILE 10 ML VIAL IV ONE (07:25)
[2024-07-28] MEDS ORDERED: SUGAMMADEX SODIUM 100 MG/ML SYR IV ONE (07:25)
[2024-07-28] MEDS ORDERED: NEOSTIGMINE 1 MG/ML 10 ML VIAL ONE (07:25)
[2024-07-28] MEDS ORDERED: PHENYLEPHRINE-0.9% NACL SYG 1,000 MCG/10 ML SYRINGE ONE (07:25)
[2024-07-28] MEDS ORDERED: fentaNYL (PF) 50 MCG/ML 2 ML AMP ONE (07:25)
[2024-07-28] MEDS ORDERED: ROCURONIUM 10 MG/ML (5 ML VIAL) IV ONE (07:25)
[2024-07-28] MEDS ORDERED: PROPOFOL 10 MG/ML 20 ML VIAL IV ONE (07:25)
[2024-07-28] MEDS ORDERED: LIDOCAINE 1% INJ 10MG/ML (20 ML MDV) ONE (07:25)
[2024-07-28] MEDS ORDERED: KETAMINE HCL IN 0.9 % NACL 50 MG/5 ML SYRINGE ONE (07:25)
[2024-07-28] MEDS ORDERED: ePHEDrine 50 MG/ML 1 ML VIAL ONE (07:25)
[2024-07-28] MEDS ORDERED: SUCCINYLCHOLINE CHLORIDE 200 MG/10 ML VIAL IV ONE (07:25)
[2024-07-28] MEDS: ceFAZolin 3 GM in SODIUM CHLORIDE 0.9% 100 ML IVPB PRN (07:33)
--- NOTE | 2024-07-28 07:33 | P.GSHP ---
History of Present Illness H&P Date: 07/28/24 CHIEF COMPLAINT: Appendicitis HISTORY OF PRESENT ILLNESS: The patient is a 64-year-old male with pre-existing history of acute appendicitis. Due to his medical history, conservative IV antibiotics were performed at outside facility. Patient did present with abnormal CT scan consistent with appendicolith. He presents today for interval appendectomy. Patient has pre-existing heart disease which cardiac risk assessment was obtained. PAST MEDICAL HISTORY: See list and reviewed PAST SURGICAL HISTORY: See list and reviewed CURRENT MEDICATIONS: See list and reviewed ALLERGIES: See list and reviewed SOCIAL HISTORY: See list and reviewed FAMILY HISTORY: See list and reviewed REVIEW OF ORGAN SYSTEMS: CONSTITUTIONAL: Present fever, no chills. Has morbid obesity. HEENT: Wears glasses. No difficulty swallowing. LYMPHATIC: The patient denies any lumps and bumps around the neck. ENDOCRINE: Denies any thyroid disorders. Denies any blood sugar glucose intolerance. RESPIRATORY: Denies shortness of breath including chronic cough. CARDIOVASCULAR: Denies current chest pain with exertion. GASTROINTESTINAL: Denies regurgitation of bile at night as well as intermittent nausea. No blood in stools. GENITOURINARY: Denies any blood in urine or increased urinary frequency. MUSCULOSKELETAL: Denies current joint arthritis. NEUROLOGIC: Denies any numbness or tingling along the distal extremities. No seizure disorders or headaches. PSYCHIATRIC: Denies any depression or suicidal ideation. HEMATOLOGIC: Denies any abnormal bleeding or bruising. PHYSICAL EXAMINATION: VITALS: Reviewed. GENERAL: Well-developed and in no acute distress. Pleasant. HEENT: No sclera icterus. Extraocular movements grossly intact. Moist buccal mucosa. Head is atraumatic, normocephalic. Hears conversational speech. No nasal drainage. NECK: Supple without lymphadenopathy. No JV distention. CHEST: Non-labored respirations and equal bilateral excursions. CARDIOVASCULAR: Regular rate and rhythm. Palpable 2+ radial pulses. ABDOMEN: Soft, obese. Nontender. MUSCULOSKELETAL: No clubbing, cyanosis or edema. NEUROLOGIC: No focal or lateralizing signs. PSYCH: Appropriate affect. Alert and oriented to person, place and time. SKIN: Well perfused. Good skin turgor. ASSESSMENT: 1. Appendicitis PLAN: 1. I have discussed benefits and risks of robotic appendectomy. 2. Bilateral SCDs. 3. He is elevated risk for complications due to pre-existing heart disease Thank you very much for allowing me to participate in the care of your patient. Past Medical History Past Medical History: Coronary Artery Disease (CAD), Chest Pain / Angina, COPD, GERD/Reflux, Hyperlipidemia, Hypertension, Myocardial Infarction ([place]), Musculo skeletal Disorder, Osteoarthritis (OA) Additional Past Medical History / Comment(s): Recent r knee skin infection tx with antibiotic. chronic cervical and lower back pain,hx bronchitis. back of left knee painful to straighten - to be seen today or tomorrow for legs at [facility]. (left leg edema) recent stress test with Dr Gomez. neuropathy bilateral feet. rash to arms- red and intact. lymphadenopathy to face , back of head, arms, groin per pt. abdominal aortic aneurysm "4.3" per pt Last Myocardial Infarction Date:: 2017 History of Any Multi-Drug Resistant Organisms: None Reported Past Surgical History: Heart Catheterization With Stent Additional Past Surgical History / Comment(s): PCI with stent at [facility] April,, pain clinic procedures, cyst lanced on R shoulder - 2016 Past Anesthesia/Blood Transfusion Reactions: No Reported Reaction Date of Last Stent Placement:: April 2017 Smoking Status: Former smoker - Past Family History Mother Family Medical History: Congestive Heart Failure (CHF), Coronary Artery Disease (CAD), Diabetes Mellitus Additional Family Medical History / Comment(s): Mother is . She had 3 vessel CABG Sister(s) Family Medical History: Coronary Artery Disease (CAD), Vascular Disorder Additional Family Medical History / Comment(s): Sister had CABG-3 vessel. She at the age of 56yrs which pt believes had to do with her blood thinners and a brain anuerysm. Father Family Medical History: Myocardial Infarction ([place]) Additional Family Medical History / Comment(s): Father of a massive [place] at the age of 65yrs. Brother(s) Additional Family Medical History / Comment(s): brain bleed Medications and Allergies Home Medications Medication Instructions Recorded Confirmed Type oxyCODONE-APAP 10-325MG [Percocet 1 tab PO Q6H 08/24/13 07/28/24 History 10-325 mg] Aspirin EC [Ecotrin Low Dose] 81 mg PO DAILY 03/23/18 07/28/24 History Atorvastatin [Lipitor] 40 mg PO HS 03/23/18 07/28/24 History Nitroglycerin Sl Tabs [Nitrostat] 0.4 mg PO Q5M PRN 03/31/19 07/28/24 History ALPRAZolam [Xanax] 0.25 mg PO DAILY PRN 01/09/22 07/28/24 History Lisinopril-Hctz 20-25 mg 1 tab PO DAILY 06/02/24 07/28/24 History [Zestoretic 20-] Pantoprazole [Protonix] 40 mg PO DAILY 06/02/24 07/28/24 History amLODIPine [Norvasc] 5 mg PO 1700 06/02/24 07/28/24 History lisinopriL [Zestril] 20 mg PO HS 06/02/24 07/28/24 History Otc Magnesium 1 tab PO DAILY 07/25/24 07/28/24 History Albuterol Inhaler [Ventolin Hfa 1 - 2 puff INHALATION DIRECTED 07/25/24 07/28/24 History Inhaler] PRN Vitamin B12 1 tab PO DAILY 07/25/24 07/28/24 History Allergies Allergy/AdvReac Type Severity Reaction Status Date / Time morphine Allergy Rash/Hives Verified 07/28/24 06:45 Results - Labs 07/28/24 07:05
[2024-07-28] MEDS: LIDOCAINE 1%-EPI 1:100,000 20 ML VIAL SQ ONE ×2 (08:08)
[2024-07-28] MEDS: metroNIDAZOLE-NS PMX 500 MG in SALINE 1 100ML.BAG IVPB PRN (08:09)
[2024-07-28] MEDS: LACTATED RINGERS 1,000 ML IV ONE (08:20)
[2024-07-28 08:34] VITALS: TEMP 97.1
[2024-07-28] MEDS: fentaNYL (PF) 50 MCG/ML 2 ML AMP IV PRN (08:48)
[2024-07-28] MEDS ORDERED: HYDROmorphone 0.5 MG/0.5 ML SYRINGE IVP PRN (09:13)
[2024-07-28 10:29] VITALS: RESP 16
[2024-07-28 11:01] VITALS: BP 127/75; PULSE 72
--- NOTE | 2024-07-28 15:37 | P.OP ---
Date of Procedure: 07/28/24 Description of Procedure: SURGEON: MAGDALENE CHAVES MD Preoperative Diagnosis: 1. Acute appendicitis 2. Hypertensive heart disease 3. Gastroesophageal reflux disease 4. Ischemic cardiomyopathy 5. Hyperlipidemia 6. Chronic obstructive pulmonary disease due to asthma 7. Generalized anxiety disorder 8. Chronic pain syndrome 9. Morbid obesity excess calories, BMI 30.4 10. Coronary artery disease 11. History of myocardial infarction 12. Neuropathy 13. Status post cardiac catheterization with stent placement Postoperative Diagnosis: 1. Acute appendicitis 2. Hypertensive heart disease 3. Gastroesophageal reflux disease 4. Ischemic cardiomyopathy 5. Hyperlipidemia 6. Chronic obstructive pulmonary disease due to asthma 7. Generalized anxiety disorder 8. Chronic pain syndrome 9. Morbid obesity excess calories, BMI 30.4 10. Coronary artery disease 11. History of myocardial infarction 12. Neuropathy 13. Status post cardiac catheterization with stent placement 14. Right inguinal hernia Procedure(s) Performed: 1. Robotic-assisted daVinci Xi laparoscopic appendectomy Anesthesia: GETA, local Estimated Blood Loss (ml): 5 Pathology: other (appendix) Condition: stable Disposition: floor Operative Findings: 1. Acute appendicitis without rupture 2. Terminal ileum unremarkable 3. Cecum unremarkable 4. Right inguinal hernia, indirect INDICATIONS: The patient is a 64-year-old male who presents with acute appendicitis. He had previously been treated conservatively with IV antibiotics 4 months ago at outside facility. He presents for interval appendectomy. Benefits and risks, including infection, open surgery, and bleeding for additional surgery was discussed at length. Informed consent was obtained. All questions of the patient and family were answered. DESCRIPTION: The patient was transferred to the operating room and placed in supine position. The patient had previously voided. The abdomen was then prepped and draped in standard sterile fashion as Ioban was placed along the abdomen to minimize any contamination of skin floor. After a timeout protocol was performed, attention was then brought to the left upper quadrant whereby a 0 degree 5 mm laparoscopic trocar entry was performed. The abdominal cavity was entered and insufflated to 12 mmHg pressure, which was tolerated well. Diagnostic laparoscopy demonstrated no injury to bowel, viscera or mesentery. Next a robotic 8-mm trocar was placed along the left lower quadrant, 10-cm l ateral to the midline. A 12 mm port was placed along the left upper quadrant and another 8-mm port left lateral abdominal wall. Ports were placed 8 cm apart from each other including 15-20 cm away from the target anatomy of the right pelvis. The patient was then placed in Trendelenburg position, at least 14 down and right side up at least 7. The robotic da Lesley XI system was primed and docked from the left side of the patient. Using atraumatic graspers and vessel sealer, the robotic system was docked and primed as described. Instruments were interchanged by the assistant golf professional including graspers, robotic stapler and vessel sealer. Next, attention was brought to identify the cecum. A systematic view within the abdominal cavity was started with the small bowel which was unremarkable. The base of the cecum was unremarkable. Right inguinal hernia, indirect was identified. The tip and body of the appendix was dilated with periappendicitis. No perforation was identified. The appendix was dissected free from its surrounding tissues. White 45 mm robotic staple loads were fired along the base of the appendix. The staple line was hemostatic. Hemostasis was checked prior to undocking the robot. The robot was undocked. I re-scrubbed into the case. The specimen was removed from the abdominal cavity with an Endo Catch bag through the 12 mm trocar at the left upper quadrant. All instruments and pneumoperitoneum were evacuated from the abdominal cavity. Local anesthetic was infiltrated to all wounds for postop analgesia. All incisions were also cleansed with diluted hydrogen peroxide. The incisions were closed with 4-0 Monocryl. Exofin glue was applied to the rest of the skin incisions. The patient had tolerated the procedure well. The patient was extubated s uccessfully. The patient was transferred to the postanesthesia care unit in stable condition. Plan - Discharge Summary Discharge Rx Participant: No New Discharge Prescriptions: New Ibuprofen [Motrin] 600 mg PO Q8HR PRN #30 tab PRN Reason: Pain Simethicone [Gas-X] 125 mg PO AC-TID PRN #20 capsule PRN Reason: Pain Continue oxyCODONE-APAP 10-325MG [Percocet 10-325 mg] 1 tab PO Q6H Atorvastatin [Lipitor] 40 mg PO HS Aspirin EC [Ecotrin Low Dose] 81 mg PO DAILY Nitroglycerin Sl Tabs [Nitrostat] 0.4 mg PO Q5M PRN PRN Reason: Chest Pain Pantoprazole [Protonix] 40 mg PO DAILY Lisinopril-Hctz 20-25 mg [Zestoretic 20-25] 1 tab PO DAILY Vitamin B12 1 tab PO DAILY ALPRAZolam [Xanax] 0.25 mg PO DAILY PRN PRN Reason: Anxiety lisinopriL [Zestril] 20 mg PO HS amLODIPine [Norvasc] 5 mg PO 1700 Albuterol Inhaler [Ventolin Hfa Inhaler] 1 - 2 puff INHALATION DIRECTED PRN PRN Reason: Shortness Of Breath Otc Magnesium 1 tab PO DAILY Discharge Medication List oxyCODONE-APAP 10-325MG [Percocet 10-325 mg] 1 tab PO Q6H 08/24/13 [History] Aspirin EC [Ecotrin Low Dose] 81 mg PO DAILY 03/23/18 [History] Atorvastatin [Lipitor] 40 mg PO HS 03/23/18 [History] Nitroglycerin Sl Tabs [Nitrostat] 0.4 mg PO Q5M PRN 03/31/19 [History] ALPRAZolam [Xanax] 0.25 mg PO DAILY PRN 01/09/22 [History] Lisinopril-Hctz 20-25 mg [Zestoretic 20-25] 1 tab PO DAILY 06/02/24 [History] Pantoprazole [Protonix] 40 mg PO DAILY 06/02/24 [History] amLODIPine [Norvasc] 5 mg PO 1700 06/02/24 [History] lisinopriL [Zestril] 20 mg PO HS 06/02/24 [History] Otc Magnesium 1 tab PO DAILY 07/25/24 [History] Albuterol Inhaler [Ventolin Hfa Inhaler] 1 - 2 puff INHALATION DIRECTED PRN 07/25/24 [History] Vitamin B12 1 tab PO DAILY 07/25/24 [History] Ibuprofen [Motrin] 600 mg PO Q8HR PRN #30 tab 07/28/24 [Rx] Simethicone [Gas-X] 125 mg PO AC-TID PRN #20 capsule 07/28/24 [Rx] Follow up Appointment(s)/Referral(s): Magdalene Chaves MD [STAFF PHYSICIAN] - 08/01/24 7:05 pm Patient Instructions/Handouts: *Surgery [facility] - (Anesthesia) Discharge Instructions Outpatient Surgery, Laparoscopic Appendectomy (DC) Activity/Diet/Wound Care/Special Instructions: TELEHEALTH - DR WILL CALL YOU BETWEEN 9 am to 8 pm NO LONG DRIVES OR AIRPLANE RIDES OVER 60 MINUTES FOR THE NEXT 2, 08/11/24 WEEKS DUE TO HIGH RISK OF PULMONARY EMBOLISM/DVTs May drive in 72 hrs, 07/31/24 No lifting over 10 pounds in 2 weeks until 08/11/24 May shower. No bath tub soaks for two weeks until 08/11/24 Diet as tolerated. Use Tylenol, simethicone and ibuprofen or Aleve scheduled for the next 24-48 hours for best pain relief. Use ice along incisions for today to prevent swelling. Discharge Disposition: HOME SELF-CARE
== END 2024-07-28 11:05 | disposition home or self-care (01) ==
LOC: OR 05:36
PROVIDERS: ATTEND Surgery Plastic and Reconstructive Surgery
DX: K35.80 Unspecified acute appendicitis (principal); K40.90 Unilateral inguinal hernia, without obstruction or gangrene, not specified as recurrent; I11.9 Hypertensive heart disease without heart failure; I25.5 Ischemic cardiomyopathy; I25.10 Atherosclerotic heart disease of native coronary artery without angina pectoris; I25.2 Old myocardial infarction; Z95.5 Presence of coronary angioplasty implant and graft; E78.5 Hyperlipidemia, unspecified; I71.40 Abdominal aortic aneurysm, without rupture, unspecified; J44.89 Other specified chronic obstructive pulmonary disease; G62.9 Polyneuropathy, unspecified; K21.9 Gastro-esophageal reflux disease without esophagitis; G89.4 Chronic pain syndrome; F41.1 Generalized anxiety disorder; E66.01 Morbid (severe) obesity due to excess calories; Z68.30 Body mass index [BMI] 30.0-30.9, adult; Z79.82 Long term (current) use of aspirin; Z79.899 Other long term (current) drug therapy; Z87.891 Personal history of nicotine dependence; Z88.5 Allergy status to narcotic agent
CPT/HCPCS: 44970; S2900; 85025; 88304

== ENCOUNTER → 2024-08-21 | Outpatient (CLI) | payer BC ==
--- NOTE | 2024-08-21 22:47 | XR ---
EXAMINATION TYPE: XR knee complete LT DATE OF EXAM: 08/21/2024 CLINICAL INDICATION: Male, 64 years old with history of M25.562 PAIN IN LEFT KNEE, pain TECHNIQUE: Frontal, lateral, and oblique views of the knee were obtained. COMPARISON: Bilateral knee x-rays May 24, 2023. FINDINGS: There is no acute fracture/dislocation evident in the left knee. Moderate to severe narrow ing with mild to moderate spurring medial tibial femoral compartment is present. There is moderate na rrowing with severe spurring patellofemoral compartment. The overlying soft tissue appears unremarkab le. IMPRESSION: As above. No significant change from prior x-ray. [facility], , 08/21/2024 10:45 PM
== END | disposition home or self-care (01) ==
LOC: RADXRMAIN 17:14
PROVIDERS: ATTEND Nurse Practitioner Family
DX: M25.762 Osteophyte, left knee (principal); M25.562 Pain in left knee